=== PATIENT | male | born 1945 | race Caucasian/White ===

== ENCOUNTER 2017-09-03 07:48 | Outpatient (CLI) | payer MEDICARE, OTHER ==
[2017-09-03 08:39] LABS: ALT (SGPT) 30 U/L (8-55); AST (SGOT) 19 U/L (5-34); Albumin 4.4 g/dL (3.4-4.8); Alkaline Phosphatase 84 U/L (40-150); Anion Gap 8 mmol/L (10-20); BUN (Urea Nitrogen) 21 mg/dL (8.4-25.7); Bilirubin, Direct 0.2 mg/dL (0.1-0.3); Bilirubin, Total 0.6 mg/dL (0.2-1.2); Calc. Creatinine Clearance 0 mL/min (70-130); Calcium 9.6 mg/dL (7.8-10.44); Carbon Dioxide 33 mmol/L (23-31); Chloride 103 mmol/L (98-107); Estimated GFR-MDRD 47; Glucose 85 mg/dL (83-110); Potassium 4.2 mmol/L (3.5-5.1); Protein, Total 6.9 g/dL (5.8-8.1); Sodium 140 mmol/L (136-145)
--- NOTE | 2017-09-03 08:47 | RAD ---
2 VIEWS CHEST: Date: 09/03/17 PROVIDED CLINICAL HISTORY: Malignant neoplasm of bladder. FINDINGS: Comparison with 12/18/16. Cardiac and mediastinal silhouette is unchanged in appearance. Calcified granuloma at the right lower lung zone laterally is again noted. No confluent air space disease, pleural fluid, or pneumothorax a pparent. IMPRESSION: No evidence for an acute cardiopulmonary process. POS: [facility]
--- NOTE | 2017-09-03 08:57 | CT ---
CT ABDOMEN AND PELVIS: DATE: 08/14/17. PROVIDED CLINICAL HISTORY: Malignant neoplasm of bladder. FINDINGS: Comparison is made with the study dated 08/28/16. There is stable probable rounded atelectasis/scarri ng at the lateral aspect of the left lung base posteriorly. Visualized lung bases are free of signif icant opacity. There is persistent circumscribed fluid density seen within the right renal pelvis appearing stable w ith respect to the prior examination. This may reflect parapelvic cysts. This is incompletely roselia cterized without IV contrast. The right ureter demonstrates a mildly distended appearance diffusely. There is no evidence for urinary tract calculus. The urinary bladder is suboptimally evaluated but appears grossly normal. The liver, spleen, pancreas, and adrenal glands demonstrate an unremarkable unenhanced CT appearance. The left kidney is surgically absent. There is no bowel dilatation, inflammatory fat stranding, free fluid, or lymph node enlargement appar ent. Vascular calcifications are noted involving the abdominal aorta and its branches. Sigmoid colonic di verticulosis and bilateral fat-containing inguinal hernias are seen. The osseous structures demonstrate no concerning osteoblastic or osteolytic lesions. IMPRESSION: Stable exam. POS: [facility]
[2017-09-03 09:39] LABS: Bilirubin Negative (Negative); Blood, Urine Negative (Negative); Clarity CLEAR (Clear); Glucose, Urine (Dipstick) Negative (Negative); Leukocyte Negative (Negative); Nitrite Negative (Negative); Protein, Urine (Dipstick) Negative (Neg-Trace); Urobilinogen 0.2 mg/dL (0.2-1.0); pH, Urine 6.5 (5.0-9.0)
[2017-09-03 09:43] LABS: Bacteria/HPF None Seen HPF (None Seen); Hyaline Casts/LPF 0-3 HYALINE CAST LPF (0-3 Hyaline); RBC/HPF None Seen HPF (0-3); Squamous Epithelial None Seen HPF (0-3); WBC/HPF 0-3 HPF (0-3)
[2017-09-03 10:48] LABS: Sperm/HPF 1+ HPF (None Seen)
== END 2017-09-03 07:49 | disposition home or self-care (01) ==
LOC: CT 07:48
PROVIDERS: ATTEND Urology
DX: C67.9 Malignant neoplasm of bladder, unspecified (principal); C65.2 Malignant neoplasm of left renal pelvis; N28.1 Cyst of kidney, acquired; N18.9 Chronic kidney disease, unspecified
CPT/HCPCS: 36415; 71046; 74176; 80048; 80076; 81001; 87086

== ENCOUNTER 2017-11-04 11:57 | Outpatient (CLI) | payer MEDICARE, OTHER ==
[2017-11-04 13:57] LABS: Bilirubin Negative (Negative); Blood, Urine Negative (Negative); Clarity CLEAR (Clear); Glucose, Urine (Dipstick) Negative (Negative); Hemoglobin 14.9 g/dL (14.0-18.0); Leukocyte Negative (Negative); Mean Corpuscular HGB CONC 34.2 g/dL (32.0-36.0); Mean Corpuscular Hemoglobin 30.3 pg (27.0-31.0); Mean Corpuscular Volume 88.6 fl (80.0-94.0); Mean Platelet Volume 8.6 fL (7.4-10.4); Nitrite Negative (Negative); Platelet Count 160 thou/uL (130-400); Protein, Urine (Dipstick) Negative (Neg-Trace); RBC Distribution Width 11.5 % (11.5-14.5); Red Blood Cell (RBC) Count 4.91 mill/uL (4.70-6.10); Specific Gravity, Urine 1.015 (1.002-1.036); Urobilinogen 0.2 mg/dL (0.2-1.0); White Blood Cell (WBC) Count 5.3 thou/uL (4.8-10.8); pH, Urine 5.5 (5.0-9.0)
[2017-11-04 14:00] LABS: Bacteria/HPF None Seen HPF (None Seen); Hyaline Casts/LPF 0-3 HYALINE CAST LPF (0-3 Hyaline); RBC/HPF 0-3 HPF (0-3); Squamous Epithelial None Seen HPF (0-3); WBC/HPF None Seen HPF (0-3)
[2017-11-04 14:05] LABS: Prothrombin Time 13.7 SEC (12.0-14.7)
[2017-11-04 14:06] LABS: PTT 31.4 SEC (22.9-36.1)
[2017-11-04 15:05] LABS: Anion Gap 12 mmol/L (10-20); BUN (Urea Nitrogen) 24 mg/dL (8.4-25.7); Calc. Creatinine Clearance 0 mL/min (70-130); Calcium 9.4 mg/dL (7.8-10.44); Carbon Dioxide 25 mmol/L (23-31); Chloride 105 mmol/L (98-107); Estimated GFR-MDRD 45; Glucose 107 mg/dL (83-110); Potassium 4.1 mmol/L (3.5-5.1); Sodium 138 mmol/L (136-145)
--- NOTE | 2017-11-04 16:25 | EKG ---
Test Reason : Blood Pressure : / mmHG Vent. Rate : 056 BPM Atrial Rate : 056 BPM P-R Int : 140 ms QRS Dur : 092 ms QT Int : 406 ms P-R-T Axes : 056 064 074 degrees QTc Int : 391 ms Sinus bradycardia Possible Left atrial enlargement Borderline ECG Confirmed by STONEY SALAZAR ([id number]) on 11/04/2017 4:24:38 PM Referred By: LUPILLO Confirmed By:STONEY SALAZAR
== END 2017-11-04 11:58 | disposition home or self-care (01) ==
LOC: LABBT 11:57
PROVIDERS: ATTEND Urology
DX: Z01.818 Encounter for other preprocedural examination (principal); C67.9 Malignant neoplasm of bladder, unspecified
CPT/HCPCS: 80048; 81001; 85027; 85610; 85730; 87086; 93005; 93010

== ENCOUNTER 2017-11-16 06:58 | Day surgery (SDC) | payer MEDICARE, OTHER ==
[2017-11-04 12:19] VITALS: BMI 28.4
[2017-11-16] MEDS ORDERED: Iothalamate Meglumine 60% 50 ML VIAL FS ONE (07:15)
[2017-11-16] MEDS ORDERED: Levofloxacin 500 mg/D5W 100 ml Premix Bag ONE (07:55)
[2017-11-16] MEDS ORDERED: Fentanyl 100 MCG/2 ML VIAL ONE (09:38)
--- NOTE | 2017-11-16 12:10 | OP ---
DATE OF PROCEDURE: 11/16/2017 PREOPERATIVE DIAGNOSES: 1. 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 2. History of superficial bladder cancer, status post transurethral resection of bladder tumor. 3. Recent cystoscopy negative, staging imaging negative, positive cytology. POSTOPERATIVE DIAGNOSES: 1. 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 2. History of superficial bladder cancer, status post transurethral resection of bladder tumor. 3. Recent cystoscopy negative, staging imaging negative, positive cytology. the same. PROCEDURES PERFORMED: Cystoscopy, trans-urethral sampling of prostatic urethra via resectoscope, fulguration of prostatic urethra, random bladder biopsy x3, fulguration of biopsy site, right retrograde, 6 x 26 double-J ureteral stent, flexible ureteroscopy, balloon dilation of intramural ureter, balloon dilation via ureteroscope of the proximal ureter L3-L4 level. SURGEON: Dr. Morgan. ANESTHESIA: General. COMPLICATIONS: None apparent. DISPOSITION: To recovery room in stable condition. INTRAOPERATIVE FINDINGS: 1. TUR defect consistent with prior sampling, no evidence of bladder neck contracture. 2. No evidence of bladder lesion. 3. Left UO was surgically absent. 4. Right UO with clear efflux of urine. 5. Right retrograde demonstrated no evidence of hydronephrosis or filling defect HISTORY OF PRESENT ILLNESS: Mr. Mendoza is a 72-year-old male with history of high-grade left renal pelvic TCC of the bladder, status post left nephroureterectomy, pathologic T1, N0, history of superficial bladder cancer. He has been monitored with surveillance imaging and cystoscopy, which demonstrated no recent visible recurrence, as he is due for his annual exam under anesthesia with retrograde studies, given recent positive cytology, he presents today for his annual surveillance exam under anesthesia at an earlier interval due to recent positive cytology. The patient has had previous positive cytologies negative, in which multiple biopsies, ureteroscopy, pyeloscopy negative for occult lesion. He presents today for staging exam. Risks and complications and indications reviewed including, but not limited to, bleeding, pain, infection, injury to adjacent organs, urosepsis, stricture formation, ureteral renal bladder injury was reviewed with him in detail and he desired to proceed. DESCRIPTION OF PROCEDURE: After an informed consent is signed, the patient is taken to the operating room, placed in a dorsal lithotomy position with the genital area prepped and draped in the usual surgical sterile fashion. A 21- New Zealander cystoscope was utilized for cystoscopy, which demonstrated normal anterior urethra. The prostatic urethra was entered, which demonstrated prior resection changes with bladder neck open with no gross evidence of bladder neck contracture. A 21-[place] Ze[place]ander scope was able to be passed without difficulty. Upon entering the bladder, there were no suspicious lesions for malignancy. The right UO was mildly patulous with no gross evidence of hematuria, bladder tumor. The left UO was surgically absent. At this time, we passed a 5 [place] Ze[place] open-ended catheter to perform a retrograde pyelogram. The ureters were delicate in size with no gross evidence of hydronephrosis. He does have a large peripelvic cyst, I did not see any mass effect from this on the calyces. There was no evidence of hydronephrosis and prompt excretion of contrast was noted. At this time, a 0.35 sensor wire was placed into the right upper pole without difficulty and using a [employer] 4 cm 12 New Zealander balloon dilator , the intramural ureter was dilated. We subsequently passed a second safety wire, a 0.35 Super Stiff to the level of the right renal pelvis. We attempted to pass a flexible ureteroscope via the wire. He had similar issues in the past in which at the level of L3-L4 ureter, I could not pass the flexible ureteroscope. Upon inspection of this area, there was no evidence of lesion consistent with malignant stricture. On retrograde pyelogram, caliber the ureter is delicate with no obvious discrete areas of stricture or narrowing per se. As I could not pass the flexible ureteroscope for surveillance pyeloscopy, we passed a passport balloon dilator under direct visualization and a balloon dilation of this region was performed. Although after the balloon dilation, the opening was more capacious. I still could not get the flexible ureteroscope passed atraumatically. Therefore, I aborted further ureteroscopy, pyeloscopy. A 6 x 26 double-J ureteral stent was passed without difficulty and all wires were removed and stent left in good position. At this time, we did a random bladder biopsy using endoscopic biopsy forceps in the left lateral wall, posterior right lateral wall. Using [place], we cauterized the bed of the biopsy site with good hemostasis. At this time, I transitioned to a resectoscope 26 New Ze[place]ander with a prostate loop and we took the prostatic urethral sampling of the prostate. Two specimens were obtained. Good hemostasis was noted. There is no significant bleeding noted. I did pass a 20 [place] catheter in and out, which passed without difficulty. As there is good hemostasis, I made the decision not to leave an indwelling Pay[place] catheter. He tolerated the procedure well. He will return to clinic this week to schedule a ureteroscopy, pyeloscopy in which I will leave the indwelling ureteral stent for minimum 1-2 weeks to allow passive dilatation. This similar scenario was present few years ago in which I was able to pass the ureteroscope and subsequent ureteroscopy with ease. There is no gross evidence on today's exam. He will undergo pyeloscopy for complete surveillance of positive cytology at a later date. He is discharged with [place] 5/325, ciprofloxacin for 5 days, Colace p.r.n. MTDD
[2017-11-16] MEDS ORDERED: Glycopyrrolate 0.2 MG/ML 5 ML SYRINGE ONE ×2 (12:22)
[2017-11-16] MEDS ORDERED: PROPOFOL 200 MG/20 ML VIAL ONE (12:22)
[2017-11-16] MEDS ORDERED: Dexamethasone 20 MG/5 ML VIAL ONE (12:22)
[2017-11-16] MEDS ORDERED: Lidocaine 1% PF 5 ML VIAL ONE (12:22)
[2017-11-16] MEDS ORDERED: ePHEDrine/0.9% NaCl/PF SYRINGE 50 mg/10 ml ONE (12:22)
--- NOTE | 2017-11-16 13:02 | RAD ---
RIGHT RETROGRADE UROGRAM: Date: 11-16-17 History: Right renal stone. Comparison: 12-24-16 FINDINGS/IMPRESSION: There are surgical clips within the medial left upper quadrant and left hemipelvis. Degenerative arevalo ge is noted in the spine. No suspicious calcifications are identified. Right retrograde urogram demonstrates no evidence of hydronephrosis. Right renal collecting system, a nd right ureter demonstrate an overall normal appearance. The suggested filling defect within the upp er pole renal randy is less well delineated on this exam and while there is filling defect on this st udy, the filling defect does not definitely persist and may represent a small air bubble. Subsequent imaging shows a guidewire in place with images demonstrating what appears to be a balloon catheter in place. Final image demonstrates a double pigtail right ureteral stent in place, the proximal portion overlying the upper pole right renal collecting system and distal portion overlying the expected loc ation of the urinary bladder. Correlation with intraoperative findings is recommended. POS: [facility]
== END 2017-11-16 12:45 | disposition home or self-care (01) ==
LOC: SDC 06:58
PROVIDERS: ATTEND Urology
PROC: 0TBB8ZX Excision of Bladder, Via Natural or Artificial Opening Endoscopic, Diagnostic (ICD-10-PCS; principal; 2017-11-16)
PROC: 0T768DZ Dilation of Right Ureter with Intraluminal Device, Via Natural or Artificial Opening Endoscopic (ICD-10-PCS; 2017-11-16)
DX: N32.89 Other specified disorders of bladder (principal); N30.90 Cystitis, unspecified without hematuria; N18.9 Chronic kidney disease, unspecified; Z90.6 Acquired absence of other parts of urinary tract; Z85.51 Personal history of malignant neoplasm of bladder; Z85.53 Personal history of malignant neoplasm of renal pelvis
CPT/HCPCS: 52204; 52332; 74420; 88305; C1758; C1769; J1100; J1956; J2001; J2704; J3010; Q9961

== ENCOUNTER 2017-11-18 12:15 | Outpatient (CLI) | payer MEDICARE, OTHER ==
[2017-11-18 13:29] LABS: Hemoglobin 14.3 g/dL (14.0-18.0); Mean Corpuscular Hemoglobin 30.5 pg (27.0-31.0); Mean Corpuscular Volume 89.7 fl (80.0-94.0); Mean Platelet Volume 8.7 fL (7.4-10.4); Platelet Count 151 thou/uL (130-400); RBC Distribution Width 11.6 % (11.5-14.5); Red Blood Cell (RBC) Count 4.67 mill/uL (4.70-6.10); White Blood Cell (WBC) Count 7.8 thou/uL (4.8-10.8)
[2017-11-18 13:39] LABS: PTT 29.8 SEC (22.9-36.1); Prothrombin Time 13.2 SEC (12.0-14.7)
[2017-11-18 13:56] LABS: Anion Gap 11 mmol/L (10-20); BUN (Urea Nitrogen) 28 mg/dL (8.4-25.7); Calc. Creatinine Clearance 0 mL/min (70-130); Calcium 9.1 mg/dL (7.8-10.44); Carbon Dioxide 30 mmol/L (23-31); Chloride 102 mmol/L (98-107); Estimated GFR-MDRD 39; Glucose 117 mg/dL (83-110); Sodium 139 mmol/L (136-145)
[2017-11-18 14:03] LABS: Bilirubin Negative (Negative); Blood, Urine Large (Negative); Clarity CLOUDY (Clear); Glucose, Urine (Dipstick) Negative (Negative); Leukocyte Moderate (Negative); Nitrite Negative (Negative); Protein, Urine (Dipstick) 100 mg/dL (Neg-Trace); Specific Gravity, Urine 1.014 (1.002-1.036); Urobilinogen 0.2 mg/dL (0.2-1.0); pH, Urine 6.5 (5.0-9.0)
[2017-11-18 14:08] LABS: Bacteria/HPF None Seen HPF (None Seen); Hyaline Casts/LPF 0-3 HYALINE CAST LPF (0-3 Hyaline); Pathc Cast-AUWi Flag 0.29 (0-2.49); RBC/HPF GREATER THAN 50-TNTC HPF (0-3); Squamous Epithelial 0-3 HPF (0-3); WBC/HPF 21-50 HPF (0-3)
== END 2017-11-18 12:16 | disposition home or self-care (01) ==
LOC: LABBT 12:15
PROVIDERS: ATTEND Urology
DX: Z01.818 Encounter for other preprocedural examination (principal); C67.9 Malignant neoplasm of bladder, unspecified
CPT/HCPCS: 80048; 81001; 85027; 85610; 85730; 87086; 93005; 93010

== ENCOUNTER 2017-11-30 05:47 | Day surgery (SDC) | payer MEDICARE, OTHER ==
[2017-11-18 12:47] VITALS: BMI 28.1
[2017-11-30] MEDS ORDERED: Levofloxacin 500 mg/D5W 100 ml Premix Bag ONE (06:38)
[2017-11-30] MEDS ORDERED: Midazolam HCl 2 mg/2 ml Vial ONE (06:49)
[2017-11-30] MEDS ORDERED: Fentanyl 100 MCG/2 ML VIAL ONE (06:49)
[2017-11-30 07:04] LABS: Anion Gap 9 mmol/L (10-20); BUN (Urea Nitrogen) 28 mg/dL (8.4-25.7); Calc. Creatinine Clearance 58 mL/min (70-130); Calcium 9.1 mg/dL (7.8-10.44); Carbon Dioxide 26 mmol/L (23-31); Chloride 106 mmol/L (98-107); Estimated GFR-MDRD 49; Glucose 98 mg/dL (83-110); Potassium 4.3 mmol/L (3.5-5.1); Sodium 137 mmol/L (136-145)
[2017-11-30] MEDS ORDERED: Iothalamate Meglumine 60% 50 ML VIAL FS ONE (07:08)
[2017-11-30] MEDS ORDERED: Phenazopyridine HCl 97.5 MG TABLET ONE (08:30)
--- NOTE | 2017-11-30 09:39 | RAD ---
RIGHT RETROGRAM UROGRAM: Date: 11-30-17 Fluoroscopy: 1.1 minute with total dose of 27.29 mGy*cm^2. FINDINGS/IMPRESSION: Initial applied behavior specialist image demonstrates surgical clips overlying the medial aspect left upper quadrant and o verlying the left hemipelvis similar to prior study. Initial image also demonstrates removal of the r ight ureteral stent with guidewire in place within the right renal collecting system as well as opaci fication of the right renal collecting system. No hydronephrosis or hydroureter is present. Subsequen t image demonstrates a catheter in place in addition to the guidewire. Correlation with intraoperativ e findings is recommended. POS: [facility]
[2017-11-30] MEDS ORDERED: PROPOFOL 200 MG/20 ML VIAL ONE (11:18)
[2017-11-30] MEDS ORDERED: Glycopyrrolate 0.2 MG/ML 5 ML SYRINGE ONE (11:18)
[2017-11-30] MEDS ORDERED: Ondansetron HCl/PF 4 MG/2 ML Vial ONE (11:18)
[2017-11-30] MEDS ORDERED: Lidocaine 1% PF 5 ML VIAL ONE (11:18)
--- NOTE | 2017-11-30 11:34 | OP ---
PREOPERATIVE DIAGNOSES: Mr. Mendoza is a 72-year-old male with history of left renal pelvic transitional cell carcinoma, history of bladder cancer, grade II superficial. Recent cytology positive. Previous workup negative. POSTOPERATIVE DIAGNOSES: Mr. Mendoza is a 72-year-old male with history of left renal pelvic transitional cell carcinoma, history of bladder cancer, grade II superficial. Recent cytology positive. Previous workup negative. PROCEDURE: Cystoscopy, right retrograde, 6 x 26 double-J ureteral stent exchange on daner, flexible ureteroscopy, pyeloscopy, retrograde pyelogram. SURGEON: Dr. Morgan. ANESTHESIA: General. COMPLICATIONS: None apparent. DISPOSITION: To the recovery room in stable condition. SPECIMEN: None. INTRAOPERATIVE FINDINGS: 1. No evidence of upper tract lesion of concern. 2. No obvious ureteral stricture. INDICATIONS FOR THE PROCEDURE AND HISTORY: Mr. Mendoza is a 72-year-old male with history of high-grade left TCC of the renal pelvis, status post left nephroureterectomy with bladder cuff, he has a history of bladder cancer with no evidence of visible recurrence. He has intermittent positive cytology, which previous workup for upper tract and random bladder biopsies negative. He recently underwent random bladder biopsy, prostatic urethral sampling, which are all negative. I was unable to access the upper tract. Therefore, stent was left in situ and presents today for diagnostic ureteroscopy, pyeloscopy. Risks and complications of the procedure was reviewed with him in detail including, but not limited to, bleeding, pain, infection, injury to adjacent organs, urosepsis, ureteral renal bladder injury reviewed and he desired to proceed. DESCRIPTION OF THE PROCEDURE: After an informed consent is signed, the patient is taken to the operating room, placed in a dorsal lithotomy position with the genital area prepped and draped in the usual surgical sterile fashion. Broad- spectrum antibiotics, bilateral EZ hose, SCDs were placed. A 21-Georgian cystoscope was passed without difficulty. Prostatic urethra did demonstrate changes consistent with recent prostatic urethral sampling. There is no bladder outlet obstruction or no significant stricture of concern. Bladder was entered, which demonstrated no lesion. The preexisting stent was removed to the level of the meatus and a 0.35 sensor wire was passed without difficulty. I subsequently passed a 10 Georgian dual-lumen access sheath in which was able to be passed without difficulty to the level of the distal ureter. Retrograde pyelogram did not demonstrate any evidence of ureteral narrowing. We were able to pass the 10 Georgian to the level of the proximal ureter just distal to the UPJ with ease. At this time, a 0.38 Super Stiff wire was passed through the dual lumen and the dual lumen was then subsequently removed. The flexible ureteroscope was then advanced over the Super Stiff wire to the level of the renal pelvis. We surveyed the collecting system, each randy was inspected, which demonstrated no evidence of upper tract TCC. The ureter was surveyed. I did have to balloon dilate his ureter in the mid, I did not see any obvious annular narrowing nor ureteral TCC lesion of concern. At this time, a 6 x 26 double-J ureteral stent was passed over the guidewire with ease and this was left on . He will follow up with me next week on Thursday for stent removal on . The patient discharged with ciprofloxacin, [place], and Colace. YING
== END 2017-11-30 09:51 | disposition home or self-care (01) ==
LOC: SDC 05:47
PROVIDERS: ATTEND Urology
PROC: 0T768DZ Dilation of Right Ureter with Intraluminal Device, Via Natural or Artificial Opening Endoscopic (ICD-10-PCS; principal; 2017-11-30)
DX: C65.2 Malignant neoplasm of left renal pelvis (principal); C67.9 Malignant neoplasm of bladder, unspecified; M19.90 Unspecified osteoarthritis, unspecified site; E78.5 Hyperlipidemia, unspecified; N40.1 Benign prostatic hyperplasia with lower urinary tract symptoms; R35.0 Frequency of micturition; Z98.890 Other specified postprocedural states
CPT/HCPCS: 52332; 74420; 80048; C1758; C1769; J1956; J2001; J2250; J2405; J2704; J3010; Q9961

== ENCOUNTER 2018-05-31 07:17 | Outpatient (CLI) | payer MEDICARE, OTHER ==
--- NOTE | 2018-05-31 09:36 | RAD ---
CHEST TWO VIEWS: 05/31/2018 HISTORY: Preoperative patient. COMPARISON: 09/03/2017 FINDINGS: Multiple old left-sided rib fractures are noted, stable. No pneumothorax or pleural fluid. No focal consolidation or alveolar edema. There is widening of the left acromioclavicular joint and truncati on of the distal left clavicle, suggesting prior postoperative and/or degenerative change. IMPRESSION: Chronic findings, as detailed above. No focal consolidation or alveolar edema. POS: [facility]
[2018-05-31 10:52] LABS: #Eosinphils 0.2 thou/uL (0.0-0.7); #Lymphocytes 1.5 thou/uL (1.20-3.40); #Monocytes 0.8 thou/uL (0.11-0.59); #Neutrophils 5.9 thou/uL (1.40-6.50); %Basophils 0.1 % (0.0-1.0); %Eosinophils 2.9 % (0.0-10.0); %Lymphocytes 17.5 % (21.0-51.0); %Monocytes 9.4 % (0.0-10.0); %Neutrophils 70.1 % (42.0-75.0); Hemoglobin 14.7 g/dL (14.0-18.0); Mean Corpuscular HGB CONC 32.7 g/dL (32.0-36.0); Mean Corpuscular Hemoglobin 29.3 pg (27.0-31.0); Mean Corpuscular Volume 89.4 fL (78.0-98.0); Mean Platelet Volume 9.4 fL (7.4-10.4); Platelet Count 158 thou/uL (130-400); Red Blood Cell (RBC) Count 5.04 mill/uL (4.70-6.10); White Blood Cell (WBC) Count 8.4 thou/uL (4.8-10.8)
[2018-05-31 10:56] LABS: PTT 32.6 SEC (22.9-36.1); Prothrombin Time 12.9 SEC (12.0-14.7)
[2018-05-31 11:10] LABS: Anion Gap 12 mmol/L (10-20); BUN (Urea Nitrogen) 28 mg/dL (8.4-25.7); Calc. Creatinine Clearance 0 mL/min (70-130); Calcium 9.7 mg/dL (7.8-10.44); Carbon Dioxide 26 mmol/L (23-31); Chloride 103 mmol/L (98-107); Estimated GFR-MDRD 46; Glucose 97 mg/dL (83-110); Potassium 4.5 mmol/L (3.5-5.1); Sodium 136 mmol/L (136-145)
[2018-05-31 11:53] LABS: Bilirubin Negative (Negative); Blood, Urine Negative (Negative); Clarity CLEAR (Clear); Glucose, Urine (Dipstick) Negative (Negative); Leukocyte Negative (Negative); Nitrite Negative (Negative); Protein, Urine (Dipstick) Negative (Neg-Trace); Specific Gravity, Urine 1.008 (1.002-1.036); Urobilinogen 0.2 mg/dL (0.2-1.0); pH, Urine 6.5 (5.0-9.0)
[2018-05-31 11:57] LABS: Bacteria/HPF None Seen HPF (None Seen); Hyaline Casts/LPF 0-3 HYALINE CAST LPF (0-3 Hyaline); Pathc Cast-AUWi Flag 0.14 (0-2.49); RBC/HPF 0-3 HPF (0-3); Squamous Epithelial None Seen HPF (0-3); WBC/HPF None Seen HPF (0-3)
== END 2018-05-31 07:18 | disposition home or self-care (01) ==
LOC: LABBT 07:17
PROVIDERS: ATTEND Orthopaedic Surgery
DX: Z01.818 Encounter for other preprocedural examination (principal); M17.11 Unilateral primary osteoarthritis, right knee
CPT/HCPCS: 71046; 80048; 81001; 85025; 85610; 85730; 87081; 93005; 93010

== ENCOUNTER 2018-06-08 06:28 | Inpatient (IN) | payer MEDICARE, OTHER ==
[2018-06-08] MEDS ORDERED: Vancomycin HCl 1.5 GM in Sodium Chloride 0.9% 250 ML 300 ML IVPB SCH (07:30)
[2018-06-08] MEDS ORDERED: Tranexamic Acid 1,000 MG/10 ML VIAL ONE (07:49)
[2018-06-08] MEDS ORDERED: CEFAZOLIN 2 GM/50 ML BAG ONE (07:49)
[2018-06-08] MEDS ORDERED: Sodium Chloride 0.9% 100 ML ONE (07:49)
[2018-06-08] MEDS ORDERED: Fentanyl 100 MCG/2 ML VIAL ONE ×3 (07:54→11:18)
[2018-06-08] MEDS ORDERED: Midazolam HCl 2 mg/2 ml Vial ONE (07:54)
[2018-06-08] MEDS ORDERED: Promethazine HCl 25 MG/ML VIAL IM PRN ×3 (08:33→09:21)
[2018-06-08] MEDS ORDERED: diphenhydrAMINE 25 MG CAP PO PRN (08:33)
[2018-06-08] MEDS ORDERED: HYDROcodone/Acetaminophen 10/325 mg Tablet PO PRN ×2 (08:33)
[2018-06-08] MEDS ORDERED: Fentanyl 100 MCG/2 ML VIAL SLOW IVP PRN ×2 (08:33)
[2018-06-08] MEDS ORDERED: Ondansetron PF 4 MG/2 ML Vial IVP PRN ×2 (08:33→08:43)
[2018-06-08] MEDS ORDERED: Zolpidem Tartrate 5 MG TAB PO PRN ×2 (08:33→08:43)
[2018-06-08] MEDS ORDERED: traMADol HCl 50 MG TAB PO PRN ×2 (08:33→08:43)
[2018-06-08] MEDS ORDERED: Ropivacaine HCl/PF 250 ML in Premix Bag 1 BAG NERVE BLCK SCH (08:43)
[2018-06-08] MEDS ORDERED: CEFAZOLIN/Water 2 GM/20 ML SYRINGE SLOW IVP SCH (08:45)
[2018-06-08] MEDS ORDERED: Fentanyl 100 MCG/2 ML VIAL IV PRN (08:47)
[2018-06-08] MEDS ORDERED: Non-Formulary Item 1 EACH (Multivitamin [Multivitamins] 1 TAB) PO SCH (09:00)
[2018-06-08] MEDS ORDERED: Ondansetron HCl/PF 4 MG/2 ML Vial IVP PRN (09:21)
[2018-06-08] MEDS ORDERED: Promethazine HCl 25 MG/ML VIAL SLOW IVP PRN (09:21)
[2018-06-08] MEDS ORDERED: Morphine 10 MG/ML VIAL ONE (09:39)
--- NOTE | 2018-06-08 10:33 | OP ---
DATE OF PROCEDURE: 06/07/2018 PREOPERATIVE DIAGNOSIS: Degenerative joint disease of the right knee. POSTOPERATIVE DIAGNOSIS: Degenerative joint disease of the right knee. PROCEDURE: Right total knee arthroplasty using a Jonathan Triathlon 5 femur, 6 tibia, 9 mm CSX3 polye thylene, A32 patella. SURGEON: Freddy Suarez M.D. SLIDE FASTENERS INSPECTOR: Alex Swartz PA-C. BLOOD LOSS: Minimal. SPECIMEN: None. DRAINS: None. COMPLICATIONS: None. TOURNIQUET TIME: 48 minutes. PROCEDURE IN DETAIL: After informed consent was obtained in the preoperative holding area. The deangelo ent was taken to the operative suite where general anesthesia was induced. Once adequate level of ge neral anesthesia was obtained, the patient was positioned and a well-padded tourniquet was placed george und the right proximal thigh. The right lower extremity was then prepped and draped in the usual deric rile fashion. Prior to exsanguination, a time out was called and all members of the surgical team ag marce upon site, surgeon, and patient. The extremity was then exsanguinated and the tourniquet was ra ised. A midline longitudinal incision was then made directly over the patella extending two fingerbr eadths above the superior pole of the patella and two fingerbreadths inferior to the inferior patella r pole of the patella. Deeper subcutaneous layers were dissected sharply and local bleeding was cont rolled with Bovie electrocautery. A quad tendon longitudinal split was then made sharply and a media n parapatellar arthrotomy was carried out both sharp and with Bovie electrocautery, carried down to o ne fingerbreadth medial to the tibial tubercle. The knee was then placed into flexion and the patell a was everted nicely, and a copious fat pad ectomy was performed allowing for greater exposure of the tibia. The computer-assisted distal femoral fiducial was then placed and pinned firmly, and the dis kristel femoral cutting guide was pinned firmly into place. The oscillating saw was then used to remove the appropriate amount of bone. The 4-in-1 cutting block was then placed on the distal femur and the oscillating saw was used to remove the appropriate amount of bone off of the anterior, posterior, an d chamfer cuts. After completion of bone cuts, the anterior cruciate ligament was resected sharply a nd the posterior cruciate ligament retractor was placed and the tibia was subluxed for better exposur e. Partial meniscectomies were carried out, and the tibial computer-assisted fiducial was pinned, an d the cutting guide was placed. Oscillating saw was then used to remove the bone with Hohmann retrac tors used to take care and protect the collateral ligaments. After the tibial resection was performe d, a laminar balance clerk was placed in between the freshened bone cuts. The knee placed at 90 degrees a nd further bilateral meniscectomies were carried out, and the curved osteotome and curettage was used to remove any excess bone spurs in the posterior compartment. The trial femoral component, tibial b aseplate were placed with the appropriate polyethylene trial insert with an appropriate polyethylene spacer and patellar button. The knee was taken through full range of motion with flexion and extensi on from 0-90 degrees and patellar broach squarely in the trochlea without any squinting or subluxatio n noted. The knee was also stable to varus and valgus stressing at 0, 15, 45, and 90 degrees of flex ion. The drawer was negative. All trial components were then removed and the keel punch was used to provide the appropriate defect in the tibia with a mallet. The freshened bone cuts were copiously ir rigated with pulsatile lavage of about 1-1/2 liters to remove all excess debris. The freshened bone cuts were then dried and with suction and lap sponge. The knee was placed in flexion and retractors were placed to provide access to all bone cuts. Tobramycin impregnated methyl methacrylate cement wa s then placed on the freshened bone cuts and implants which were malleted firmly into place. Curetta ge and [place] elevators were used to remove any excess bone cement. The knee was placed into full ext ension and the patellar button was placed under compression, and the cement was allowed to cure. Onc e completed, the components were again taken through full range of motion and copious irrigation of t he knee was carried out with another liter of normal saline. All components were inspected fully wit h full range of motion and varus and valgus stressing. There was no laxity noted and full extension w as observed clinically. Primary closure was accomplished with #2 interrupted Vicryl stitch of the ar throtomy defect. This was oversewn with a #2 running Quill barbed stitch. The gravitational platele t system was then injected into the arthrotomy prior to closure. The subcutaneous layer was then yfn sed with a running 0 barbed Monocryl stitch and skin closure accomplished with a running subcuticular 3-0 Monocryl barbed Quill stitch and augmented with cement on the skin. Tourniquet was lowered. Go od spontaneous return of distal pulses was noted clinically and a sterile dressing was applied to the incision. The procedure was terminated without any complications. The patient was awakened in the operative suite and the tourniquet was removed, and the patient was taken to the recovery room in sta ble condition.
[2018-06-08] MEDS: Amlodipine 10 MG TAB PO SCH (13:19)
[2018-06-08] MEDS: Sodium Chloride 0.9% 1,000 ML IV SCH ×3 (13:19→23:03)
[2018-06-08] MEDS: Aspirin 81 mg Enteric Coated Tablet PO SCH ×2 (13:20→20:30)
[2018-06-08] MEDS: HYDROcodone/Acetaminophen 10/325 mg Tablet PO PRN ×4 (13:28→23:02)
--- NOTE | 2018-06-08 13:36 | RAD ---
TWO VIEW RIGHT KNEE: Indication: Total knee replacement, post-operative evaluation. FINDINGS: Right knee prosthesis is present without acute hardware complication. Expected post procedural air is seen. IMPRESSION: Right post-operative knee without hardware complication identified. POS: [facility]
[2018-06-08 14:08] VITALS: BMI 28.1
[2018-06-08] MEDS ORDERED: Ropivacaine 0.5% HCl/PF (150 MG/30 ML VIAL) ONE (15:52)
[2018-06-08] MEDS ORDERED: Ropivacaine 0.2% HCl/PF (40 MG/20 ML VIAL) ONE (15:52)
[2018-06-08] MEDS: CEFAZOLIN 2 GM/50 ML-DEXTROSE 2 GM in Premix Bag 1 BAG IVPB SCH ×2 (16:49→23:03)
[2018-06-08] MEDS ORDERED: Ondansetron PF 4 MG/2 ML Vial ONE (17:11)
[2018-06-08] MEDS ORDERED: PROPOFOL 200 MG/20 ML VIAL ONE (17:11)
[2018-06-08] MEDS: Atorvastatin Calcium 40 MG TAB PO SCH (20:30)
[2018-06-08] MEDS: traMADol HCl 50 MG TAB PO PRN (20:31)
[2018-06-09 05:44] LABS: Hemoglobin 12.6 g/dL (14.0-18.0); Mean Corpuscular HGB CONC 33.5 g/dL (32.0-36.0); Mean Corpuscular Hemoglobin 30.1 pg (27.0-31.0); Mean Corpuscular Volume 89.7 fL (78.0-98.0); Mean Platelet Volume 8.6 fL (7.4-10.4); Platelet Count 157 thou/uL (130-400); RBC Distribution Width 11.6 % (11.5-14.5); White Blood Cell (WBC) Count 6.7 thou/uL (4.8-10.8)
[2018-06-09] MEDS: Amlodipine 10 MG TAB PO SCH (08:04)
[2018-06-09] MEDS: Aspirin 81 mg Enteric Coated Tablet PO SCH ×2 (08:06→20:58)
[2018-06-09] MEDS: Senokot S 8.6-50 MG TAB PO SCH ×2 (08:06→20:57)
[2018-06-09] MEDS: Multivitamin W/ Minerals 1 TAB PO SCH (08:06)
[2018-06-09] MEDS: Ferrous Gluconate 324 MG TAB PO SCH ×2 (08:06→20:58)
[2018-06-09] MEDS: HYDROcodone/Acetaminophen 10/325 mg Tablet PO PRN ×2 (08:09→11:23)
--- NOTE | 2018-06-09 12:44 | PDOC.PN ---
- Subjective Encounter Start Date: 06/09/18 Encounter Start Time: 09:30 follow up for HTN, HLD, GERD, CKD, s/p TKA No F/C, no N/V/D/C, no CP or SOB all systems neg x as per HPI - Objective MAR Reviewed: Yes Vital Signs & Weight: Vital Signs (12 hours) Temp Pulse Resp BP BP Pulse Ox 06/09/18 08:04 87 167/70 H 06/09/18 08:00 92 L 06/09/18 07:15 100 F H 87 16 167/70 H 92 L 06/09/18 00:47 99.3 F 59 L 16 160/76 H 92 L Weight Weight 196 lb I&O: 06/08/18 06/09/18 06/10/18 06:59 06:59 06:59 Intake Total 1500 Output Total 650 Balance 850 Result Diagrams: 06/09/18 05:17 Phys Exam - Physical Examination Constitutional: NAD HEENT: PERRLA, moist MMs, sclera anicteric, oral pharynx no lesions Neck: no nodes, no JVD, supple, full ROM Respiratory: no wheezing, no rales, no rhonchi, clear to auscultation bilateral Cardiovascular: RRR, no significant murmur, no rub Gastrointestinal: soft, non-tender, no distention, positive bowel sounds Musculoskeletal: edema present Neurological: non-focal, normal sensation, moves all 4 limbs Lymphatic: no nodes Psychiatric: normal affect, A&O x 3 Skin: no rash, normal turgor, cap refill <2 seconds Dx/Plan (1) HTN (hypertension) Code(s): I10 - ESSENTIAL (PRIMARY) HYPERTENSION Status: Chronic Qualifiers: Hypertension type: essential hypertension Qualified Code(s): I10 - Essential (primary) hypertension (2) HLD (hyperlipidemia) Code(s): E78.5 - HYPERLIPIDEMIA, UNSPECIFIED Status: Chronic Qualifiers: Hyperlipidemia type: unspecified Qualified Code(s): E78.5 - Hyperlipidemia , unspecified (3) GERD (gastroesophageal reflux disease) Code(s): K21.9 - GASTRO-ESOPHAGEAL REFLUX DISEASE WITHOUT ESOPHAGITIS Status: Chronic Qualifiers: Esophagitis presence: without esophagitis Qualified Code(s): K21.9 - Gastro -esophageal reflux disease without esophagitis (4) CKD (chronic kidney disease), stage III Code(s): N18.3 - CHRONIC KIDNEY DISEASE, STAGE 3 (MODERATE) Status: Chronic (5) Status post right knee replacement Code(s): Z96.651 - PRESENCE OF RIGHT ARTIFICIAL KNEE JOINT Status: Acute - Plan cont current plan of care, plan discussed w/ family, PT/OT, out of bed/ambulate * .
--- NOTE | 2018-06-09 13:37 | CON ---
DATE OF CONSULTATION: 06/08/2018 PRIMARY CARE PHYSICIAN: Dr. Ranulfo Cruz. REQUESTING PHYSICIAN: Dr. Freddy Suarez. TIME OF SERVICE: 1400 hours. REASON FOR CONSULTATION: Medical management, status post right TKA. HISTORY OF PRESENT ILLNESS: Mr. Mendoza is a pleasant 73-year-old gentleman with history of degenerative joint disease; bladder cancer, status post nephrectomy resulting chronic kidney disease; hypertension; hyperlipidemia; asymptomatic bradycardia; and GERD, who is postop day zero from right TKA. There were no known intraoperative complications. The patient denies any fevers, chills, nausea, vomiting, diarrhea, or constipation. Pain is under good control. PAST MEDICAL HISTORY: 1. Hypertension. 2. Hyperlipidemia. 3. Asymptomatic bradycardia. 4. GERD. 5. One remaining kidney. 6. Seasonal allergies. 7. Osteoarthritis. 8. History of bladder cancer, status post nephrectomy. PAST SURGICAL HISTORY: Reviewed. Please see the preop list. HOME MEDICATIONS: 1. Amlodipine 5 mg p.o. daily. 2. Lipitor 40 mg p.o. every evening. 3. Glucosamine/chondroitin every morning. 4. Claritin 5 mg p.o. p.r.n. 5. Multivitamin daily. ALLERGIES: NKDA. FAMILY HISTORY: Significant for hypertension, coronary artery disease, diabetes, and cancers. SOCIAL HISTORY: Significant for tobacco, but quit some 40 years ago. Negative for alcohol, tobacco, or drugs now. The patient is and monogamous. His accompanies him. REVIEW OF SYSTEMS: All systems reviewed and negative except as stated in the HPI. PHYSICAL EXAMINATION: GENERAL/VITAL SIGNS: The patient is afebrile. He has normal vital signs. Please see the flow sheet. The patient is awake, he is alert, he is oriented x3, well-developed, well-nourished, elderly white male, appears age appropriate. He is in no acute distress. HEENT: Normocephalic and atraumatic. Pupils are equal, round, reactive to light bilaterally. Mucous membranes are moist. No visible lesion or thrush. NECK: Supple. There is no lymphadenopathy, JVD, or thyromegaly. Normal carotid upstroke. I do not appreciate any bruits. LUNGS: Clear. No wheezes, no rales, and no rhonchi. No prolonged expiratory phase. He has good air movement with symmetric chest excursion. CARDIOVASCULAR: Normal S1 and S2. No S3 or S4. There is a faint 2/6 systolic ejection murmur in the right upper sternal border. It does not radiate anywhere. ABDOMEN: Soft, nontender, and nondistended. No mass or hepatosplenomegaly. EXTREMITIES: No cyanosis, no clubbing, and no edema. SKIN: Warm, moist and well perfused. MUSCULOSKELETAL: Normal to inspection with the exception of the right knee, which is currently in a postop dressing and that was not removed. NEUROLOGIC: Cranial nerves II through XII are grossly intact. No focal neurologic deficits. 5/5 strength in all 4 extremities. Normal speech pattern. LABORATORY DATA: Preop labs showed a sodium of 136, potassium 4.5, chloride 103, bicarb 26, BUN 20, creatinine 1.50, which is actually better than his baseline. Glucose is 92 and calcium is 9.7. CBC showed a white count of 8.4, hemoglobin of 14.7, hematocrit of 45.1, and platelet count of 158,000. INR is 1.0 and urinalysis was clear. IMPRESSION/PLAN: 1. Hypertension. 2. Hyperlipidemia. 3. Asymptomatic bradycardia. 4. Gastroesophageal reflux disease. 5. History of bladder cancer. 6. Chronic kidney disease, stage 3. 7. Osteoarthritis, status post right total knee arthroplasty. Continue home medications. Watch his vital signs. Routine postop care per Orthopedics. Thank you very much for this consult. We will follow along with you. Job ID: [id number]
[2018-06-09] MEDS: Sodium Chloride 0.9% 1,000 ML IV SCH ×2 (14:54→23:53)
[2018-06-09] MEDS: Atorvastatin Calcium 40 MG TAB PO SCH (20:58)
[2018-06-09] MEDS: Acetaminophen 325 MG TAB PO PRN (23:54)
[2018-06-10 05:45] LABS: Hemoglobin 11.9 g/dL (14.0-18.0); Mean Corpuscular HGB CONC 34.3 g/dL (32.0-36.0); Mean Corpuscular Hemoglobin 30.6 pg (27.0-31.0); Mean Corpuscular Volume 89.1 fL (78.0-98.0); Platelet Count 147 thou/uL (130-400); RBC Distribution Width 11.5 % (11.5-14.5); Red Blood Cell (RBC) Count 3.88 mill/uL (4.70-6.10); White Blood Cell (WBC) Count 7.7 thou/uL (4.8-10.8)
[2018-06-10] MEDS ORDERED: Lidocaine 1% (PF) 30 ML VIAL ONE (07:18)
[2018-06-10] MEDS: Aspirin 81 mg Enteric Coated Tablet PO SCH (08:33)
[2018-06-10] MEDS: Amlodipine 10 MG TAB PO SCH (08:33)
[2018-06-10] MEDS: Ferrous Gluconate 324 MG TAB PO SCH (08:34)
[2018-06-10] MEDS: Multivitamin W/ Minerals 1 TAB PO SCH (08:34)
[2018-06-10] MEDS: Senokot S 8.6-50 MG TAB PO SCH (08:34)
--- NOTE | 2018-06-10 09:07 | PDOC.PN ---
- Subjective Encounter Start Date: 06/10/18 Encounter Start Time: 08:00 follow up for HTN, DM2, s/p TKA discharging today, slgiht temp overnight no n/V/d/C, no chills, no cough. All systems reviewed and neg x as above - Objective MAR Reviewed: Yes Vital Signs & Weight: Vital Signs (12 hours) Temp Pulse Resp BP BP BP Pulse Ox 06/10/18 08:33 69 163/64 H 06/10/18 07:28 92 L 06/10/18 07:25 98.9 F 69 16 163/64 H 92 L 06/10/18 04:16 99.8 F H 74 18 142/62 H 94 L 06/10/18 00:09 100.7 F H 74 18 154/68 H 94 L Weight Admit Weight 196 lb Weight 196 lb I&O: 06/09/18 06/10/18 06/11/18 06:59 06:59 06:59 Intake Total 1500 1300 Output Total 650 Balance 850 1300 Result Diagrams: 06/10/18 04:39 Phys Exam - Physical Examination Constitutional: NAD HEENT: PERRLA, moist MMs, sclera anicteric, oral pharynx no lesions Neck: no nodes, no JVD, supple, full ROM Respiratory: no wheezing, no rales, no rhonchi, clear to auscultation bilateral Cardiovascular: RRR, no significant murmur, no rub Gastrointestinal: soft, non-tender, no distention, positive bowel sounds Musculoskeletal: no edema Neurological: non-focal, normal sensation, moves all 4 limbs Lymphatic: no nodes Psychiatric: normal affect, A&O x 3 Skin: no rash, normal turgor, cap refill <2 seconds Dx/Plan (1) HTN (hypertension) Code(s): I10 - ESSENTIAL (PRIMARY) HYPERTENSION Status: Chronic Qualifiers: Hypertension type: essential hypertension Qualified Code(s): I10 - Essential (primary) hypertension (2) HLD (hyperlipidemia) Code(s): E78.5 - HYPERLIPIDEMIA, UNSPECIFIED Status: Chronic Qualifiers: Hyperlipidemia type: unspecified Qualified Code(s): E78.5 - Hyperlipidemia , unspecified (3) GERD (gastroesophageal reflux disease) Code(s): K21.9 - GASTRO-ESOPHAGEAL REFLUX DISEASE WITHOUT ESOPHAGITIS Status: Chronic Qualifiers: Esophagitis presence: without esophagitis Qualified Code(s): K21.9 - Gastro -esophageal reflux disease without esophagitis (4) CKD (chronic kidney disease), stage III Code(s): N18.3 - CHRONIC KIDNEY DISEASE, STAGE 3 (MODERATE) Status: Chronic (5) Status post right knee replacement Code(s): Z96.651 - PRESENCE OF RIGHT ARTIFICIAL KNEE JOINT Status: Acute - Plan * .
[2018-06-10] MEDS: Sodium Chloride 0.9% 1,000 ML IV SCH (11:07)
[2018-06-10 11:08] VITALS: BP 155/57; TEMP 99.4
[2018-06-10] MEDS: traMADol HCl 50 MG TAB PO PRN (12:47)
[2018-06-10] MEDS: Acetaminophen 325 MG TAB PO PRN (12:48)
--- NOTE | 2018-06-11 14:11 | DIS ---
DATE OF ADMISSION: 06/08/2018 DATE OF DISCHARGE: 06/10/2018 PREOPERATIVE DIAGNOSES: Right knee osteoarthritis/degenerative joint disease. POSTOPERATIVE DIAGNOSES: Right knee osteoarthritis/degenerative joint disease. PROCEDURE PERFORMED: The patient underwent a right total knee replacement. HOSPITAL COURSE: Hospital stay was unremarkable. He was admitted to [facility], where he worked with staff, physical therapy, occupational therapy, and progressed quite well. By postoperative day #2, he was ready to discharge home. DISCHARGE CONDITION: Good/stable. DISPOSITION: Home with family. FOLLOWUP: Would in 2 to 4 weeks or sooner if there are problems or any concerns. DISCHARGE MEDICATIONS: Given with the usage instructions. Job ID: [id number]
== END 2018-06-10 13:38 | disposition home or self-care (01) | DRG 470 ==
LOC: SDC 06:28 → SURG B 12:00
PROVIDERS: ADMIT Orthopaedic Surgery; ATTEND Orthopaedic Surgery
PROC: 0SRC0J9 Replacement of Right Knee Joint with Synthetic Substitute, Cemented, Open Approach (ICD-10-PCS; principal; 2018-06-08)
DX: M17.11 Unilateral primary osteoarthritis, right knee (principal); E78.5 Hyperlipidemia, unspecified; K21.9 Gastro-esophageal reflux disease without esophagitis; R00.1 Bradycardia, unspecified; Z85.51 Personal history of malignant neoplasm of bladder; I12.9 Hypertensive chronic kidney disease with stage 1 through stage 4 chronic kidney disease, or unspecified chronic kidney disease; N18.3 Chronic kidney disease, stage 3 (moderate)
CPT/HCPCS: 36415; 85027; 86850; 86900; 86901; 96374; C1713; C1776; G8978-GP-CK; G8979-GP-CI; J2001; J2250; J2270; J2405; J2704; J2795; J3010; J3370; J7050

== ENCOUNTER 2018-09-27 16:21 | Outpatient (CLI) | payer MEDICARE, OTHER ==
--- NOTE | 2018-09-27 20:30 | MRI ---
MRI LUMBAR SPINE WITHOUT CONTRAST: Indication: Left leg numbness for one year with history of renal cell ===== cancer in the past. Comparison: Prior CT of the abdomen and pelvis, 09-03-17. FINDINGS: There are five lumbar type vertebrae demonstrated. There are Schmorl's nodes involving the superior a spect of L4 and the inferior aspect of L2 which is similar appearing. The conus is seen to terminate at approximately L1. Slight prominence of the right renal pelvis is stable to the comparison CT. L5-S1: There is a broad based bulge with facet hypertrophy inducing mild central canal narrowing as w ell as moderate bilateral lateral recess narrowing with encroachment on the traversing S1 nerve roots bilaterally. This has potential for impingement of the traversing S1 nerve root, particularly on the right. Broad based bulge and facet hypertrophy induces mild bilateral neural foraminal narrowing. L4-5: There is a broad based bulge with facet hypertrophy inducing moderate right and mild left neura l foraminal narrowing. There is mild central canal narrowing at this level. L3-4: There is a broad based disc bulge with facet hypertrophy inducting mild bilateral neural forami nal narrowing. L2-3: There is a broad based disc bulge and facet hypertrophy inducing mild neural foraminal encroach ment. L1-2: There is mild broad based bulge without appreciable central canal or neural foraminal narrowing . T12-L1: No appreciable central canal or neural foraminal narrowing. IMPRESSION: 1. Broad based disc bulge with facet hypertrophy induces moderate lateral recess narrowing bilaterall y within the subarticular lateral recess with potential for impingement of the traversing S1 nerve ro ots, right greater than left. 2. Mild bilateral neural foraminal narrow at L5-S1. 3. Moderate right and mild left neural foraminal narrowing at L4-5. 4. Mild bilateral neural foraminal narrowing at L3-4. POS: [facility]
== END 2018-09-27 16:22 | disposition home or self-care (01) ==
LOC: MRI 16:21
PROVIDERS: ATTEND Orthopaedic Surgery
DX: M51.16 Intervertebral disc disorders with radiculopathy, lumbar region (principal); M48.061 Spinal stenosis, lumbar region without neurogenic claudication; M48.07 Spinal stenosis, lumbosacral region; M51.9 Unspecified thoracic, thoracolumbar and lumbosacral intervertebral disc disorder
CPT/HCPCS: 72148

== ENCOUNTER 2018-10-25 09:10 | Outpatient (CLI) | payer MEDICARE, OTHER ==
--- NOTE | 2018-10-25 09:27 | RAD ---
XR Chest Pa Lat STANDARD History:Malignant neoplasm of the left kidney Comparison: 05/31/2018 study. Findings: Heart size and mediastinum are within normal limits. The lungs are clear of any infiltrativ e process. There are old left rib fractures present. No pulmonary nodules are identified. Impression: No active intrathoracic disease. Stable chest.
--- NOTE | 2018-10-25 10:41 | CT ---
CT ABDOMEN AND PELVIS WITHOUT CONTRAST: HISTORY: The patient has a history of kidney and bladder cancer. Left nephrectomy. Tumors removed from the b ladder. COMPARISON: 09/03/2017 FINDINGS: ABDOMEN: The lung bases show some linear parenchymal change, which shows foci of nodularity associat ed with it and a small pleural-based area of nodularity along the left hemidiaphragm. All these arevalo ges are stable. The liver, spleen, pancreas, and gallbladder regions appear unremarkable. The right and left adrenal glands are normal in appearance. The left kidney has been removed. Cysti c appearing areas within the right renal pelvis appear stable and may be related to parapelvic cysts, difficult to characterize on this noncontrast study. The right ureter does not appear significantly dilated. There is no significant periaortic or mesenteric lymphadenopathy. PELVIS: Sigmoid diverticulosis is noted. I do not appreciate any definite bladder mass. No signifi cant pelvic lymphadenopathy. There appear to be bilateral hydroceles incidentally noted. IMPRESSION: 1. Left nephrectomy. 2. Persistent prominence to the right renal pelvis region, which could be related to a parapelvic cy st in this area. No dilatation of the right ureter. No renal calculus. 3. Sigmoid diverticulosis. 4. Overall, stable examination. POS: [facility]
== END 2018-10-25 09:11 | disposition home or self-care (01) ==
LOC: BICCT 09:10
PROVIDERS: ATTEND Urology
DX: C65.2 Malignant neoplasm of left renal pelvis (principal); C67.9 Malignant neoplasm of bladder, unspecified; N28.1 Cyst of kidney, acquired; R35.0 Frequency of micturition; N18.9 Chronic kidney disease, unspecified; Z90.5 Acquired absence of kidney; K57.30 Diverticulosis of large intestine without perforation or abscess without bleeding
CPT/HCPCS: 36415; 71046; 74176; 80053; 81001; 87086; 88121

== ENCOUNTER 2018-11-02 09:58 | Outpatient (CLI) | payer MEDICARE, OTHER ==
[2018-11-02 11:17] LABS: Hemoglobin 14.3 g/dL (14.0-18.0); Mean Corpuscular HGB CONC 33.2 g/dL (32.0-36.0); Mean Corpuscular Hemoglobin 29.4 pg (27.0-31.0); Mean Corpuscular Volume 88.7 fL (78.0-98.0); Mean Platelet Volume 8.8 fL (7.4-10.4); Platelet Count 156 thou/uL (130-400); RBC Distribution Width 11.9 % (11.5-14.5); Red Blood Cell (RBC) Count 4.85 mill/uL (4.70-6.10); White Blood Cell (WBC) Count 5.3 thou/uL (4.8-10.8)
[2018-11-02 11:22] LABS: PTT 30.3 SEC (22.9-36.1); Prothrombin Time 13.2 SEC (12.0-14.7)
[2018-11-02 11:43] LABS: Anion Gap 12 mmol/L (10-20); BUN (Urea Nitrogen) 24 mg/dL (8.4-25.7); Calc. Creatinine Clearance 0 mL/min (70-130); Calcium 9.6 mg/dL (7.8-10.44); Carbon Dioxide 29 mmol/L (23-31); Chloride 103 mmol/L (98-107); Estimated GFR-MDRD 49; Glucose 88 mg/dL (83-110); Potassium 4.4 mmol/L (3.5-5.1); Sodium 140 mmol/L (136-145)
[2018-11-02 11:56] LABS: Bacteria/HPF None Seen HPF (None Seen); Hyaline Casts/LPF 0-3 HYALINE CAST LPF (0-3 Hyaline); RBC/HPF 0-3 HPF (0-3); Squamous Epithelial None Seen HPF (0-3); WBC/HPF None Seen HPF (0-3)
[2018-11-02 16:12] LABS: Bilirubin Negative (Negative); Blood, Urine Negative (Negative); Clarity CLEAR (Clear); Glucose, Urine (Dipstick) Negative (Negative); Leukocyte Negative (Negative); Nitrite Negative (Negative); Protein, Urine (Dipstick) Negative (Neg-Trace); Specific Gravity, Urine 1.007 (1.002-1.036); Urobilinogen 0.2 mg/dL (0.2-1.0)
--- NOTE | 2018-11-02 23:20 | EKG ---
Test Reason : Blood Pressure : / mmHG Vent. Rate : 045 BPM Atrial Rate : 045 BPM P-R Int : 146 ms QRS Dur : 090 ms QT Int : 444 ms P-R-T Axes : 041 066 063 degrees QTc Int : 384 ms Marked sinus bradycardia Abnormal ECG When compared with ECG of 31-MAY-2018 09:06, No significant change was found Confirmed by ISMA WALSH ([id number]) on 11/02/2018 11:20:22 PM Referred By: LUPILLO Confirmed By:ISMA WALSH
== END 2018-11-02 09:59 | disposition home or self-care (01) ==
LOC: LABBT 09:58
PROVIDERS: ATTEND Urology
DX: Z01.818 Encounter for other preprocedural examination (principal); N32.0 Bladder-neck obstruction; Z85.51 Personal history of malignant neoplasm of bladder
CPT/HCPCS: 80048; 81015; 85027; 85610; 85730; 87086; 93005; 93010

== ENCOUNTER 2018-11-09 13:08 | Outpatient (CLI) | payer MEDICARE, OTHER | END 2018-11-09 13:09 | disposition home or self-care (01) | LOC: LABBT 13:08 | PROVIDERS: ATTEND Urology | DX: Z01.812 Encounter for preprocedural laboratory examination (principal); N32.0 Bladder-neck obstruction; Z85.51 Personal history of malignant neoplasm of bladder | CPT/HCPCS: 86850; 86900; 86901 ==

== ENCOUNTER 2018-11-10 05:48 | Day surgery (SDC) | payer MEDICARE, OTHER ==
[2018-11-02 10:59] VITALS: BMI 27.5
[2018-11-10] MEDS ORDERED: Levofloxacin 500 mg/D5W 100 ml Premix Bag ONE (06:39)
[2018-11-10] MEDS ORDERED: Fentanyl 100 MCG/2 ML VIAL ONE (06:52)
[2018-11-10] MEDS ORDERED: Iothalamate Meglumine 60% 50 ML VIAL FS ONE (07:48)
--- NOTE | 2018-11-10 08:13 | RAD ---
Exam: Retrograde pyelogram: HISTORY: Bladder cancer, carcinoma ureter COMPARISON: 11/30/2017 FINDINGS: Contrast is injected in the right ureter without evidence for obstruction or overt calculus or mass. IMPRESSION: Unremarkable limited retrograde pyelogram on the right.
[2018-11-10] MEDS ORDERED: Phenazopyridine HCl 97.5 MG TABLET ONE ×2 (08:28)
--- NOTE | 2018-11-10 09:13 | OP ---
DATE OF PROCEDURE: 11/10/2018 PREOPERATIVE DIAGNOSES: 1. A 73-year-old male with history of transitional cell carcinoma of the bladder. 2. History of left renal pelvic transitional cell carcinoma, status post nephroureterectomy. POSTOPERATIVE DIAGNOSES: 1. A 73-year-old male with history of transitional cell carcinoma of the bladder. 2. History of left renal pelvic transitional cell carcinoma, status post nephroureterectomy. PROCEDURES PERFORMED: Cystoscopy, dilation of bladder neck contracture, and right retrograde pyelogram. ANESTHESIA: LMA. COMPLICATIONS: None apparent. DISPOSITION: To recovery room in stable condition. SPECIMEN: None. INTRAOPERATIVE FINDINGS: 1. Mild bladder neck contracture, passively dilated with a 22-Mauritian scope, caliber approximately 20-Mauritian. 2. Bladder is grossly unremarkable. 3. Right ureteral orifice with clear efflux of urine. 4. Right retrograde pyelogram demonstrating no evidence of hydronephrosis, filling defect or functional obstruction. INDICATIONS FOR PROCEDURE AND HISTORY: Mr. Mendoza is a 73-year-old male with history of high-grade left renal pelvic TCC status post left nephroureterectomy, history of TCC of the bladder, grade 2, superficial. The patient presents today for his annual exam under anesthesia and retrograde pyelogram studies. His cytology has been obtained preprocedure and negative. Renal function stable with creatinine of 1.4, negative urine culture, presents today for exam under anesthesia. DESCRIPTION OF PROCEDURE: After an informed consent was signed, the patient was taken to the operating room and placed in the dorsal lithotomy position with the genital area prepped and draped in the usual surgical sterile fashion. Bilateral EZ hose, SCDs and broad-spectrum antibiotics were provided. A 21-Mauritian cystoscope was passed. There was no evidence of obvious obstructing urethral stricture. The prostate demonstrated TUR changes. The bladder neck is mildly deviated anteriorly. There was mild bladder neck contracture not warranting DVIU or TUR of bladder neck contracture. I was able to negotiate the 21-Mauritian cystoscope with mild resistance, however, passed without significant issues. I was able to pass to and fro from the bladder neck with a 21 without significant issue passively dilating the bladder neck. At this time, the bladder was entered, which demonstrated no evidence of bladder tumor, lesions, stones, or trabeculation. The left UO was surgically absent. Cystoscopy was performed with the 30-degree and 70-degree lens, which demonstrated no evidence of lesion of concern. The right UO was identified and mildly patulous. A 5-Mauritian open-ended catheter was utilized for retrograde pyelogram. 1:1 diluted contrast was utilized. This demonstrated no evidence of filling defects, no hydronephrosis, no delay in excretion. He does have a known history of parapelvic cyst. There was complete evacuation of contrast with prompt excretion. He tolerated the procedure well. After the procedure, I was able to pass a 16-Mauritian [place] tip in and out without significant issues. Bladder completely emptied and Payton removed. He tolerated the procedure well and transported to the recovery room in stable condition. He is to resume his home medications. No postoperative medications were provided as he was provided prophylactic antibiotics. He will follow up with me on January 07 at 8:15 a.m. to schedule his elective office cystoscopy surveillance. Job ID: [id number] MTDD
[2018-11-10] MEDS ORDERED: Lidocaine 1% PF 5 ML VIAL ONE (13:38)
[2018-11-10] MEDS ORDERED: Ondansetron PF 4 MG/2 ML Vial ONE (13:38)
[2018-11-10] MEDS ORDERED: PROPOFOL 200 MG/20 ML VIAL ONE (13:38)
== END 2018-11-10 09:10 | disposition home or self-care (01) ==
LOC: SDC 05:48
PROVIDERS: ATTEND Urology
PROC: BT1D1ZZ Fluoroscopy of Right Kidney, Ureter and Bladder using Low Osmolar Contrast (ICD-10-PCS; principal; 2018-11-10)
DX: N32.0 Bladder-neck obstruction (principal); M19.90 Unspecified osteoarthritis, unspecified site; E78.5 Hyperlipidemia, unspecified; I12.9 Hypertensive chronic kidney disease with stage 1 through stage 4 chronic kidney disease, or unspecified chronic kidney disease; N18.9 Chronic kidney disease, unspecified; K21.9 Gastro-esophageal reflux disease without esophagitis; Z87.891 Personal history of nicotine dependence; Z85.528 Personal history of other malignant neoplasm of kidney; Z85.51 Personal history of malignant neoplasm of bladder; Z79.82 Long term (current) use of aspirin; Z79.899 Other long term (current) drug therapy; Z90.5 Acquired absence of kidney
CPT/HCPCS: 52005; 74420; C1758; C1769; J1956; J3010; Q9961

== ENCOUNTER 2019-07-14 10:29 | Outpatient (CLI) | payer MEDICARE, OTHER ==
--- NOTE | 2019-07-14 10:42 | RAD ---
XR Chest Pa Lat STANDARD HISTORY: Malignant neoplasm of bladder, left renal pelvis COMPARISON: 10/25/2018 FINDINGS: The heart size is normal. The lungs are well expanded without focal areas of consolidation, pneumothorax or pleural effusions. Old left-sided rib fractures again seen. Tiny calcified granuloma in the right lower lung is again se en. IMPRESSION: Stable exam. No radiographic evidence of acute cardiopulmonary process.
--- NOTE | 2019-07-14 11:24 | CT ---
CT Stone Protocol HISTORY: History of kidney and bladder cancer with left nephrectomy. COMPARISON: 10/25/2018 study. FINDINGS: Linear scarring is again seen within the left base. The liver, spleen, pancreas and gallbladder regions appear unremarkable. Right and left adrenal glands are normal. The right kidney is normal in size. Persistent prominence t o the right renal pelvis is probably related to parapelvic cyst formation no dilatation of the right ureter. No significant periaortic or mesenteric adenopathy. The left kidney has been removed. CT of pelvis performed without contrast enhancement sigmoid diverticulosis is noted. A fat-containing left inguinal hernia is seen. The appendix is normal. IMPRESSION: Stable overall exam. Post left nephrectomy change. Prominence to the right renal pelvis i s felt to be related to parapelvic cysts.
== END 2019-07-14 10:30 | disposition home or self-care (01) ==
LOC: BICCT 10:29
PROVIDERS: ATTEND Urology
DX: C67.9 Malignant neoplasm of bladder, unspecified (principal); C65.2 Malignant neoplasm of left renal pelvis; N18.9 Chronic kidney disease, unspecified; N28.1 Cyst of kidney, acquired
CPT/HCPCS: 36415; 71046; 74176; 80053; 81001; 87086; 88121

== ENCOUNTER 2019-09-14 07:41 | Outpatient (CLI) | payer MEDICARE, OTHER ==
[2019-09-14 12:29] LABS: Bacteria/HPF None Seen HPF (None Seen); Bilirubin Negative (Negative); Blood, Urine Negative (Negative); Clarity Clear (Clear); Glucose, Urine (Dipstick) Normal (Negative); Leukocyte Negative Leu/uL (Negative); Nitrite Negative (Negative); Protein, Urine (Dipstick) 10 mg/dL (Neg-Trace); RBC/HPF 0-3 HPF (0-3); Squamous Epithelial 0-3 HPF (0-3); Urobilinogen Normal mg/dL (Less than 2); WBC/HPF 0-3 HPF (0-3)
[2019-09-14 12:36] LABS: PTT 31.5 SEC (22.9-36.1)
[2019-09-14 12:44] LABS: Hemoglobin 14.2 g/dL (14.0-18.0); Mean Corpuscular HGB CONC 33.1 g/dL (32.0-36.0); Mean Corpuscular Hemoglobin 29.9 pg (27.0-31.0); Mean Corpuscular Volume 90.2 fL (78.0-98.0); Mean Platelet Volume 9.8 fL (7.4-10.4); Platelet Count 152 thou/uL (130-400); RBC Distribution Width 11.8 % (11.5-14.5); Red Blood Cell (RBC) Count 4.75 mill/uL (4.70-6.10)
[2019-09-14 12:53] LABS: Anion Gap 13 mmol/L (10-20); BUN (Urea Nitrogen) 23 mg/dL (8.4-25.7); Calc. Creatinine Clearance 0 mL/min (70-130); Calcium 9.4 mg/dL (7.8-10.44); Carbon Dioxide 27 mmol/L (23-31); Chloride 106 mmol/L (98-107); Estimated GFR-MDRD 45; Glucose 104 mg/dL (83-110); Potassium 3.9 mmol/L (3.5-5.1); Sodium 142 mmol/L (136-145)
--- NOTE | 2019-09-15 08:31 | EKG ---
Test Reason : Blood Pressure : / mmHG Vent. Rate : 054 BPM Atrial Rate : 054 BPM P-R Int : 130 ms QRS Dur : 088 ms QT Int : 412 ms P-R-T Axes : 047 048 052 degrees QTc Int : 390 ms Sinus bradycardia Cannot rule out Inferior infarct , age undetermined Abnormal ECG When compared with ECG of 02-NOV-2018 10:44, No significant change was found Confirmed by DR. Troy SALGADO ([id number]) on 09/15/2019 8:31:31 AM Referred By: ABDIRIZAK Confirmed By:DR. Troy SALGADO
== END 2019-09-14 07:42 | disposition home or self-care (01) ==
LOC: LABBT 07:41
PROVIDERS: ATTEND Urology
DX: Z01.818 Encounter for other preprocedural examination (principal); Z12.5 Encounter for screening for malignant neoplasm of prostate; C67.9 Malignant neoplasm of bladder, unspecified; C65.2 Malignant neoplasm of left renal pelvis; N18.9 Chronic kidney disease, unspecified; N28.1 Cyst of kidney, acquired; N43.3 Hydrocele, unspecified
CPT/HCPCS: 80048; 81001; 85027; 85610; 85730; 87086; 88112; 93005; 93010

== ENCOUNTER 2019-09-28 05:55 | Day surgery (SDC) | payer MEDICARE, OTHER ==
[2019-09-14 09:35] VITALS: BMI 28.5
[2019-09-28] MEDS ORDERED: Levofloxacin 500 mg/D5W 100 ml Premix Bag ONE (06:18)
[2019-09-28] MEDS ORDERED: Iothalamate Meglumine 60% 50 ML VIAL FS ONE (06:57)
[2019-09-28] MEDS ORDERED: Fentanyl 100 MCG/2 ML VIAL ONE (07:18)
[2019-09-28] MEDS ORDERED: Phenazopyridine HCl 97.5 MG TABLET ONE (08:15)
--- NOTE | 2019-09-28 08:22 | RAD ---
EXAM: Retrograde IVP HISTORY: Right ureteral stent. History of left nephrectomy. COMPARISON: CT abdomen/pelvis 07/14/2019 FINDINGS/IMPRESSION: Limited intraoperative fluoroscopic views of the retrograde IVP were submitted f or interpretation. There is no evidence of right-sided hydronephrosis. No obvious filling defects are seen.
[2019-09-28] MEDS ORDERED: Glycopyrrolate 0.2 MG/ML 5 ML SYRINGE ONE (10:52)
[2019-09-28] MEDS ORDERED: PROPOFOL 200 MG/20 ML VIAL ONE (10:52)
[2019-09-28] MEDS ORDERED: Lidocaine 1% PF 5 ML VIAL ONE (10:52)
--- NOTE | 2019-09-28 11:04 | OP ---
DATE OF PROCEDURE: 09/28/2019 PREOPERATIVE DIAGNOSES: 1. Mr. Mendoza is a 74-year-old male with history of high-grade left renal pelvic transitional cell, status post left nephroureterectomy. 2. History of grade 2 superficial bladder cancer, status post transurethral resection of bladder tumour. 3. History of positive cytology. 4. History of bladder neck contracture. POSTOPERATIVE DIAGNOSES: 1. Mr. Mendoza is a 74-year-old male with history of high-grade left renal pelvic transitional cell, status post left nephroureterectomy. 2. History of grade 2 superficial bladder cancer, status post transurethral resection of bladder tumour. 3. History of positive cytology. 4. History of bladder neck contracture. PROCEDURES PERFORMED: Dilation of bladder neck contracture, cystoscopy, right retrograde pyelogram. ANESTHESIA: TIVA. COMPLICATIONS: None apparent. DISPOSITION: To recovery room in stable condition. SPECIMEN: None. INDICATIONS FOR PROCEDURE AND HISTORY: Mr. 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 He previously has undergone extensive workup with random bladder biopsies, prostatic urethral sampling, retrograde, right ureteroscopy. There was no evidence of bladder, ureteral, or renal pelvic tumor recurrence. He has had multiple imaging staging demonstrating no abnormality of concern. His local cystoscopy remains negative for lesion, has had positive cytology FISH recently. Recheck cytology is negative. He presents today for his annual cysto, exam under anesthesia with retrograde pyelogram given his renal insufficiency due to solitary kidney. Risks and complications of procedure have been discussed with him in detail including, but not limited to, bleeding, pain, infection, injury to adjacent organs, urosepsis. All questions answered to his satisfaction and he desired to proceed. DESCRIPTION OF PROCEDURE: After an informed consent was signed, the patient was taken to the operating room, placed in a dorsal lithotomy position. Bilateral EZ hose SCDs and broad-spectrum antibiotics were provided. A genital area was formally prepped and draped and we used a 21-Bolivian cystoscope. There was no evidence of constricting bulbar urethral stricture. Suggestion of early bulbar stricture, however, this is nonobstructing in wide caliber, did not warrant treatment. Prostatic urethra demonstrates no evidence of obstruction. Previous TUR changes of the prostatic urethra noted. The bladder neck was somewhat deviated due to history of bladder neck contracture anteriorly. I was able to negotiate the 21-Bolivian cystoscope. There was mild resistance with a 21-Bolivian scope. His bladder neck contracture was passively dilated. Upon entering the bladder, the left UO was not identified as it was surgically absent. The right UO was in normal orthotopic position with clear efflux of urine. There was changes in the bladder wall consistent with prior bladder biopsies. There was no evidence of papillary lesion of concern. A 30-degree and a 70-degree lens was utilized. At this time, we intubated the right UO with a 5-Bolivian open-ended catheter and a retrograde pyelogram was performed. He is known to have a right renal pelvic cyst. On the retrograde pyelogram, there was no evidence of hydronephrosis, splaying of the collecting system. No evidence of ureteral calyceal filling defect. There was prompt excretion of contrast. Intraoperative fluoroscopy was taken for retrograde pyelogram with good efflux. At this time, I re-staged his bladder neck. Using a 25-Bolivian sheath, I passively dilated his bladder neck further. He had no problems emptying his bladder, i.e., no urinary retention, therefore I did not leave an indwelling Payton catheter. He tolerated the procedure well and transported to the recovery room in stable condition. He is discharged with ciprofloxacin for course of 3 days, Azo p.r.n. He will return to clinic in few weeks and discuss interval staging cystoscopy. Given that the current workup is negative, I will consider restaging cystoscopy in 6-month interval in the office with followup cytology. The patient may have a left inguinal hernia on preoperative visit, where we examined the patient postop and consider General Surgery evaluation. Job ID: [id number] [facility]
== END 2019-09-28 09:00 | disposition home or self-care (01) ==
LOC: SDC 05:55
PROVIDERS: ATTEND Urology
PROC: BT1DZZZ Fluoroscopy of Right Kidney, Ureter and Bladder (ICD-10-PCS; principal; 2019-09-28)
DX: C67.9 Malignant neoplasm of bladder, unspecified (principal); I10 Essential (primary) hypertension; E78.5 Hyperlipidemia, unspecified; K21.9 Gastro-esophageal reflux disease without esophagitis; Z79.82 Long term (current) use of aspirin; Z79.899 Other long term (current) drug therapy; Z87.891 Personal history of nicotine dependence
CPT/HCPCS: 74420; C1758; C1769; J1956; J2001; J2704; J3010

== ENCOUNTER 2019-11-18 07:09 | Outpatient (CLI) | payer MEDICARE, OTHER ==
[2019-11-18 12:06] LABS: #Eosinphils 0.3 thou/uL (0.0-0.7); #Lymphocytes 1.3 thou/uL (1.20-3.40); #Monocytes 0.5 thou/uL (0.11-0.59); #Neutrophils 2.9 thou/uL (1.40-6.50); %Basophils 0.3 % (0.0-1.0); %Eosinophils 5.3 % (0.0-10.0); %Lymphocytes 25.4 % (21.0-51.0); %Monocytes 10.3 % (0.0-10.0); %Neutrophils 58.7 % (42.0-75.0); Hemoglobin 14.6 g/dL (14.0-18.0); Mean Corpuscular HGB CONC 33.2 g/dL (32.0-36.0); Mean Corpuscular Hemoglobin 30.2 pg (27.0-31.0); Mean Corpuscular Volume 90.9 fL (78.0-98.0); Mean Platelet Volume 9.4 fL (7.4-10.4); Platelet Count 138 thou/uL (130-400); RBC Distribution Width 11.5 % (11.5-14.5); Red Blood Cell (RBC) Count 4.84 mill/uL (4.70-6.10)
[2019-11-18 12:26] LABS: ALT (SGPT) 27 U/L (8-55); AST (SGOT) 22 U/L (5-34); Albumin 4.4 g/dL (3.4-4.8); Alkaline Phosphatase 94 U/L (40-110); Anion Gap 14 mmol/L (10-20); BUN (Urea Nitrogen) 20 mg/dL (8.4-25.7); Bilirubin, Total 0.6 mg/dL (0.2-1.2); Calc. Creatinine Clearance 0 mL/min (70-130); Calcium 9.7 mg/dL (7.8-10.44); Carbon Dioxide 28 mmol/L (23-31); Chloride 103 mmol/L (98-107); Estimated GFR-MDRD 49; Globulin 2.4 g/dL (2.4-3.5); Glucose 100 mg/dL (83-110); Potassium 4.7 mmol/L (3.5-5.1); Protein, Total 6.8 g/dL (5.8-8.1); Sodium 140 mmol/L (136-145)
[2019-11-18 18:21] LABS: SARS-CoV-2 MS2 Positive; SARS-CoV-2 N Gene Negative; SARS-CoV-2 S Gene Negative; SARS-CoV-2 orf1ab Negative
--- NOTE | 2019-11-20 16:36 | EKG ---
Test Reason : Blood Pressure : / mmHG Vent. Rate : 045 BPM Atrial Rate : 045 BPM P-R Int : 140 ms QRS Dur : 092 ms QT Int : 436 ms P-R-T Axes : 046 072 073 degrees QTc Int : 377 ms Marked sinus bradycardia Abnormal ECG When compared with ECG of 14-SEP-2019 10:42, Minimal criteria for Inferior infarct are no longer Present Confirmed by JAZMYN DOS SANTOS ([id number]) on 11/20/2019 4:36:24 PM Referred By: FLORIDALMA Confirmed By:JAZMYN DOS SANTOS
== END 2019-11-18 07:10 | disposition home or self-care (01) ==
LOC: LABBT 07:09
PROVIDERS: ATTEND Surgery
DX: Z01.818 Encounter for other preprocedural examination (principal); Z11.59 Encounter for screening for other viral diseases; K40.90 Unilateral inguinal hernia, without obstruction or gangrene, not specified as recurrent
CPT/HCPCS: 80053; 85025; 93005; U0003; 87635; 93010

== ENCOUNTER 2019-11-23 06:52 | Day surgery (SDC) | payer MEDICARE, OTHER ==
[2019-11-18 11:34] VITALS: BMI 27.2
[2019-11-23] MEDS ORDERED: Bupivacaine 0.25% HCL 30 ML VIAL ONE (08:04)
[2019-11-23] MEDS ORDERED: Lidocaine 1% w/Epinephrine 1:100K 20 ML VIAL ONE (08:04)
[2019-11-23] MEDS ORDERED: Fentanyl 100 MCG/2 ML VIAL ONE ×2 (08:21)
[2019-11-23] MEDS ORDERED: Glycopyrrolate 0.2 MG/ML 5 ML SYRINGE ONE (11:54)
[2019-11-23] MEDS ORDERED: EPHEDRINE 25 MG/5 ML SYRINGE ONE (11:54)
[2019-11-23] MEDS ORDERED: Dexamethasone 20 MG/5 ML VIAL ONE (11:54)
[2019-11-23] MEDS ORDERED: Ketorolac Tromethamine 30 MG/ML VIAL ONE (11:54)
[2019-11-23] MEDS ORDERED: Ondansetron PF 4 MG/2 ML Vial ONE (11:54)
[2019-11-23] MEDS ORDERED: PROPOFOL 200 MG/20 ML VIAL ONE (11:54)
[2019-11-23] MEDS ORDERED: Lidocaine 1% PF 5 ML VIAL ONE (11:54)
--- NOTE | 2019-11-23 13:01 | OP ---
DATE OF PROCEDURE: 11/23/2019 PREOPERATIVE DIAGNOSIS: Left inguinal hernia. PROCEDURE PERFORMED: Left inguinal hernia repair with mesh. INDICATIONS: This is a 74-year-old male with a painful left inguinal hernia. FINDINGS: Left direct inguinal hernia. DESCRIPTION OF PROCEDURE: After informed consent was obtained, the patient was taken to the operating room, given general endotracheal anesthesia, placed in the supine position. His groin was prepped and draped in usual fashion. Local anesthesia was infiltrated subcutaneously and deep. A transverse left inguinal incision was performed, subcu divided sharply. The fascia external oblique was incised in direction of its fibers through the external ring. Spermatic cord was isolated with Baring drain. There was no hernia sac. There was a large direct inguinal hernia, which was circumscribed and reduced. Reduction was maintained utilizing a PHS hernia system. The posterior layer placed in the preperitoneal space, anterior was laid out, tucked under the external oblique fascia laterally, sutured to the pubic tubercle medially and a notch was cut out for the spermatic cord. Hemostasis was assured. The external oblique fascia closed with a running 3-0 Vicryl. Elizabeth was closed with interrupted 3-0 Vicryl and the skin closed with a running subcuticular 4-0 Rapide. Steri-Strips applied. Sterile bandage applied. Then, at the conclusion, the drapes were removed. Pulled the testicle down, noticed he had a hydrocele in the left side that was not communicating. Job ID: [id number]
== END 2019-11-23 14:00 | disposition home or self-care (01) ==
LOC: SDC 06:52
PROVIDERS: ATTEND Surgery
PROC: 0YQ60ZZ Repair Left Inguinal Region, Open Approach (ICD-10-PCS; principal; 2019-11-23)
DX: K40.90 Unilateral inguinal hernia, without obstruction or gangrene, not specified as recurrent (principal); I10 Essential (primary) hypertension; E78.5 Hyperlipidemia, unspecified; Z79.82 Long term (current) use of aspirin; Z79.899 Other long term (current) drug therapy; Z87.891 Personal history of nicotine dependence
CPT/HCPCS: 49505; C1781; J0690; J1100; J1885; J2001; J2405; J2704; J3010; S0020

== ENCOUNTER 2020-07-12 04:03 | Inpatient (IN) | payer MEDICARE, OTHER ==
[2020-07-12] MEDS ORDERED: Dexamethasone 10 MG/ML VIAL ONE (04:24)
[2020-07-12 05:04] LABS: ALT (SGPT) 27 U/L (8-55); AST (SGOT) 25 U/L (5-34); Albumin 3.1 g/dL (3.4-4.8); Alkaline Phosphatase 88 U/L (40-110); Anion Gap 16 mmol/L (10-20); BUN (Urea Nitrogen) 35 mg/dL (8.4-25.7); Bilirubin, Total 0.5 mg/dL (0.2-1.2); Calc. Creatinine Clearance 0 mL/min (70-130); Calcium 8.7 mg/dL (7.8-10.44); Carbon Dioxide 26 mmol/L (23-31); Chloride 99 mmol/L (98-107); Glucose 142 mg/dL (83-110); Potassium 3.9 mmol/L (3.5-5.1); Protein, Total 6.1 g/dL (5.8-8.1); Sodium 137 mmol/L (136-145)
[2020-07-12 05:05] LABS: Hemoglobin 13.6 g/dL (14.0-18.0); Mean Corpuscular HGB CONC 30.9 g/dL (32.0-36.0); Mean Corpuscular Hemoglobin 28.1 pg (27.0-31.0); Mean Corpuscular Volume 90.9 fL (78.0-98.0); RBC Distribution Width 12.3 % (11.5-14.5); Red Blood Cell (RBC) Count 4.84 mill/uL (4.70-6.10); White Blood Cell (WBC) Count 12.2 thou/uL (4.8-10.8)
[2020-07-12 05:08] LABS: #Lymphocytes 0.3 thou/uL (1.20-3.40); #Monocytes 0.2 thou/uL (0.11-0.59); #Neutrophils 11.8 thou/uL (1.40-6.50); %Basophils 0.1 % (0.0-1.0); %Lymphocytes 2.2 % (21.0-51.0); %Monocytes 1.3 % (0.0-10.0); %Neutrophils 96.4 % (42.0-75.0); Mean Platelet Volume 8.9 fL (7.4-10.4); Platelet Count 110 thou/uL (130-400); Platelet Morphology Comment Appears Decreased
--- NOTE | 2020-07-12 07:42 | CT ---
PRELIMINARY REPORT/[facility]OLOG[facility]/EMERGENCY AFTER HOURS PROCEDURE: EXAM: CTA Chest with Intravenous Contrast CLINICAL HISTORY: Respiratory Distress//dyspnea//covid + TECHNIQUE: Axial CTA images of the chest with intravenous contrast. Three-dimensional MIP/volume rend ered reformations were performed. CONTRAST: With; ISOVUE 370;60mL COMPARISON: None FINDINGS: Normal caliber main pulmonary artery. Well opacified pulmonary arterial tree. No pulmonar y embolism. Cardiomegaly. Coronary artery calcifications. No pericardial effusion. Thoracic aorta is normal in course and caliber. No periaortic fluid or stranding. No pneumothorax or effusion. Posterior left pleural calcifications. Extensive patchy areas of groundglass attenuation and interstitial thickening. Cylindrical bronchiectasis. The central airways are patent. Imaged port ion of the upper abdomen is unremarkable. The superficial soft tissues are unremarkable. Multiple old posterior left rib fracture deformities. No acute bony abnormality or worrisome osseous lesions i dentified. IMPRESSION: No pulmonary embolism. Extensive bilateral airspace disease compatible with reported beka l pneumonia. No pneumothorax or pleural effusion. Coronary artery calcifications. ELECTRONICALLY SIGNED BY: Luis Perez MD Jul 12, 2020 6:22:03 AM [facility]AGGER FINAL REPORT CT ARTERIOGRAM CHEST WITH IV CONTRAST AND 3D IMAGING: DATE: 07/12/2020. TIME: Performed on emergency basis at 0553 hours. HISTORY: Chest pain. Dyspnea. FINDINGS: Agree with the preliminary report by Dr. Huff from direct radiology. No evidence of pulmonary embo lon. Extensive bilateral infiltrates with the appearance of COVID pneumonitis. Atherosclerosis. Old bilateral rib fractures. Transcribed Date/Time: 07/12/2020 9:24 AM
[2020-07-12 07:43] LABS: Lactic Acid 1.1 mmol/L (0.5-2.2)
--- NOTE | 2020-07-12 08:07 | RAD ---
Chest one view HISTORY: Respiratory distress. COVID positive. COMPARISON: 10/25/2018. IMPRESSION : Cardiac silhouette is magnified and enlarged. Pulmonary vasculature predominantly obscured by dense p atchy areas of infiltrate involving each lung. Calcified granulomata are consistent with healed granulomatous disease. Mediastinum is midline. No evidence of pneumothorax. Old left rib fractures. IMPRESSION : Dense bilateral infiltrates. Correlate for COVID pneumonitis. Cardiomegaly.
[2020-07-12] MEDS ORDERED: Ondansetron ODT 4 MG TAB PO PRN (08:57)
[2020-07-12] MEDS ORDERED: Senokot S 8.6-50 MG TAB PO PRN (08:57)
[2020-07-12] MEDS ORDERED: Iopamidol-370 76% 500 ML 1 ML ONE (11:07)
[2020-07-12] MEDS ORDERED: HYDROcodone/Acetaminophen 10/325 mg Tablet PO PRN (14:15)
--- NOTE | 2020-07-12 14:46 | HP ---
CHIEF COMPLAINT: Shortness of breath and cough. HISTORY OF PRESENT ILLNESS: A 75-year-old male with a history of hypertension and hyperlipidemia, presenting with few day duration of shortness of breath and worsening cough. He did not have any fever. Does not smoke. No family history of any recent illness. He is tested positive for COVID. He had elevated leukocytosis. His chest x-ray showed diffuse bilateral infiltrates consistent with COVID pneumonia. CT chest negative for pulmonary embolism. He is desaturating rapidly with minimal exertion and sats dropped to 60%. The patient will be initially admitted to [facility]. REVIEW OF SYSTEMS: 13-point review of systems reviewed with the patient. Pertinents are addressed in the history of present illness. The patient currently denies any nausea, vomiting, abdominal pain, constipation, hematuria, dysuria, or hematochezia. No headache or blurriness. No rash in the body. No recent fever or chills. Denies polydipsia or polyuria. Rest of the review of systems are negative. ALLERGIES: HE HAS NO KNOWN DRUG ALLERGY. PAST MEDICAL HISTORY: Hypertension, hyperlipidemia. MEDICATIONS: 1. Clonidine 1 patch every 7 days. 2. Multivitamin. 3. Claritin 5 mg as needed. 4. [place] 1 tablet a day as needed. 5. Lipitor 40 mg at bedtime. 6. Aspirin 81 mg daily. SOCIAL HISTORY: The patient does not smoke or drink alcohol. Lives with family. FAMILY HISTORY: Noncontributory. PHYSICAL EXAMINATION: GENERAL: The patient is alert and oriented, currently afebrile. He is normotensive. He is on high-flow oxygen at this time. Nontoxic appearing. He is short of breath while talking. CARDIOVASCULAR: Regular rate and rhythm without murmurs, rubs, or gallops. LUNGS: Extensive crackles. Mild inspiratory wheezing noted. ABDOMEN: Soft, nontender, nondistended. Good bowel sounds. EXTREMITIES: Without any pitting edema and rash. PSYCHIATRIC: Appropriate mood and affect. SKIN: No rash. LABORATORY DATA: White count of 12.2, hemoglobin 13.6, platelets 110. His creatinine is 1.7. Lactic acid 3.2. BNP 165. Chest x-ray, bilateral infiltrate. CT chest negative for pulmonary embolism. IMPRESSION AND PLAN: A 75-year-old male with history of hypertension and hyperlipidemia, presenting with. 1. COVID pneumonia. 2. Hypoxic respiratory failure. The patient will continue with Decadron, vitamin C, zinc as well as vitamin D. I checked with the Infectious Disease. He is not eligible to get remdesivir. 3. Hypertension. Continue with his clonidine patch as well as hydralazine as needed. 4. Hyperlipidemia. Continue with Lipitor. 5. 6. Leukocytosis, probably secondary to infiltrate. We will put him on empiric ceftriaxone and Zithromax. 7. Acute kidney injury, probably COVID pneumonia along with dehydration. Challenge with short course of IV fluid. The patient should be able to have a good p.o. intake. 8. Elevated BNP. Not significant enough to consider for cardiac etiology at this time. We will follow the clinical course. 9. Because of the significant hypoxia with minimal exertion, the patient would be initially admitted at [facility]. If he can come off high-flow oxygen, then likely to be transferred to the observation unit. 10. Deep vein thrombosis prophylaxis with Lovenox b.i.d. Job ID: [id number] [facility]
[2020-07-12] MEDS ORDERED: Azithromycin 250 MG TAB PO SCH (16:45)
[2020-07-12] MEDS ORDERED: cefTRIAXone\\ROCEPHIN 1 GM VIAL ONE (17:27)
[2020-07-12] MEDS ORDERED: Acetaminophen 325 MG TAB ONE (17:27)
[2020-07-12] MEDS ORDERED: Azithromycin 250 MG TAB ONE (17:29)
[2020-07-12] MEDS: Acetaminophen 325 MG TAB PO PRN (17:36)
[2020-07-12] MEDS: cefTRIAXone\\ROCEPHIN 1 GM in Sodium Chloride 0.9% 100 ML IVPB SCH (18:57)
[2020-07-12] MEDS: guaiFENesin 200 MG TAB PO SCH (21:30)
[2020-07-13] MEDS: Enoxaparin Sodium 30 MG/0.3 ML SYRINGE SC SCH ×2 (00:56→22:37)
[2020-07-13] MEDS: Aspirin 81 mg Enteric Coated Tablet PO SCH ×2 (00:57→22:37)
[2020-07-13] MEDS: Atorvastatin Calcium 40 MG TAB PO SCH ×2 (00:57→22:37)
[2020-07-13] MEDS: guaiFENesin 200 MG TAB PO SCH ×7 (00:57→22:44)
[2020-07-13] MEDS: Acetaminophen 325 MG TAB PO PRN (00:58)
[2020-07-13] MEDS: cloNIDine 0.1mg/24 Hour PATCH TD SCH (02:07)
[2020-07-13] MEDS: Dexamethasone 4 MG TAB PO SCH (08:11)
[2020-07-13] MEDS: Ascorbic Acid 500 mg Chewable Tablet PO SCH (08:11)
[2020-07-13] MEDS: Zinc Sulfate 220 MG CAP PO SCH (08:11)
[2020-07-13] MEDS: Multivit, Therapeutic 1 TAB PO SCH (08:11)
[2020-07-13] MEDS: Cholecalciferol 1,000 UNITS (25 MCG) TAB PO SCH (08:11)
[2020-07-13] MEDS: Azithromycin 250 MG TAB PO SCH (08:12)
[2020-07-13 12:46] LABS: Anion Gap 17 mmol/L (10-20); BUN (Urea Nitrogen) 32 mg/dL (8.4-25.7); Calc. Creatinine Clearance 56 mL/min (70-130); Calcium 8.6 mg/dL (7.8-10.44); Carbon Dioxide 25 mmol/L (23-31); Chloride 102 mmol/L (98-107); Glucose 127 mg/dL (83-110); Potassium 4.8 mmol/L (3.5-5.1); Sodium 139 mmol/L (136-145)
[2020-07-13 12:51] LABS: Band 19 % (5-11); Lymphocytes 1 % (21-51); MDiff Complete? YES; Mean Corpuscular HGB CONC 33.8 g/dL (32.0-36.0); Mean Corpuscular Hemoglobin 31.3 pg (27.0-31.0); Mean Corpuscular Volume 92.6 fL (78.0-98.0); Mean Platelet Volume 5.3 fL (7.4-10.4); Monocytes 2 % (0-10); Neutrophil 78 % (42-75); Platelet Count 104 thou/uL (130-400); Platelet Morphology Comment Appears Decreased; Polychromasia SLIGHT = 2-3 cells (100X) (0-2/hpf); RBC Distribution Width 12.5 % (11.5-14.5); Red Blood Cell (RBC) Count 4.48 mill/uL (4.70-6.10); White Blood Cell (WBC) Count 13.4 thou/uL (4.8-10.8)
--- NOTE | 2020-07-13 15:57 | PDOC.HOSPP ---
- Subjective Encounter Date: 07/13/20 Encounter Time: 11:28 Subjective: he feels slightly better less cough. He is on high flow oxygen and satting about 96% - Objective Vital Signs & Weight: Vital Signs (12 hours) Temp Pulse Resp BP Pulse Ox 07/13/20 11:35 98.1 F 59 L 20 153/74 H 96 07/13/20 08:20 97.9 F 61 12 144/76 H 99 07/13/20 04:30 98.3 F 56 L 19 139/65 97 Weight Weight 186 lb 12.8 oz I&O: 07/12/20 07/13/20 07/14/20 06:59 06:59 06:59 Intake Total 300 Output Total 300 Balance 0 Result Diagrams: 07/13/20 12:18 07/13/20 12:18 Hospitalist ROS - Medication Medications: Active Medications Generic Name Dose Route Start Last Admin Trade Name Freq PRN Reason Stop Dose Admin Acetaminophen 650 mg 07/12/20 08:57 07/13/20 00:58 Acetaminophen 325 Mg Tab PO 650 mg Q4H PRN Administration Headache/Fever/Mild Pain (1-3) Ascorbic Acid 1,000 mg 07/13/20 09:00 07/13/20 08:11 Ascorbic Acid 500 Mg Chewable Tablet PO 1,000 mg DAILY CM Administration Aspirin 81 mg 07/12/20 21:00 07/13/20 00:57 Aspirin 81 Mg Enteric Coated Tablet PO 81 mg HS CM Administration Atorvastatin Calcium 40 mg 07/12/20 21:00 07/13/20 00:57 Atorvastatin Calcium 40 Mg Tab PO 40 mg QPM CM Administration Azithromycin 500 mg 07/13/20 09:00 07/13/20 08:12 Azithromycin 250 Mg Tab PO 07/16/20 09:01 500 mg DAILY CM Administration Cholecalciferol 2,000 units 07/13/20 09:00 07/13/20 08:11 Cholecalciferol 1,000 Units (25 Mcg) Tab PO 2,000 units DAILY CM Administration Clonidine 0.1 mg 07/13/20 03:00 07/13/20 02:07 Clonidine 0.1mg/24 Hour Patch TD 0.1 mg Q7D CM Administration Dexamethasone 6 mg 07/13/20 08:00 07/13/20 08:11 Dexamethasone 4 Mg Tab PO 6 mg QAM-WM CM Administration Enoxaparin Sodium 30 mg 12/31/20 21:00 07/13/20 00:56 Enoxaparin Sodium 30 Mg/0.3 Ml Syringe SC 30 mg 2100 CM Administration Guaifenesin 400 mg 07/12/20 17:00 07/13/20 13:14 Guaifenesin 200 Mg Tab PO 07/14/20 17:01 400 mg Q4HR CM Administration Ceftriaxone Sodium 1 gm/ 100 mls @ 200 mls/hr 07/12/20 17:00 07/12/20 18:57 Sodium Chloride IVPB 100 mls 1700 CM Administration Multivitamins 1 tab 07/13/20 09:00 07/13/20 08:11 Multivit, Therapeutic 1 Tab PO 1 tab QAM CM Administration Zinc Sulfate 220 mg 07/13/20 09:00 07/13/20 08:11 Zinc Sulfate 220 Mg Cap PO 220 mg DAILY CM Administration - Exam General Appearance: NAD, awake alert Eye: PERRL ENT: normocephalic atraumatic Neck: supple Heart: RRR, normal peripheral pulses Respiratory: CTAB, normal chest expansion Gastrointestinal: soft, normal bowel sounds Neurological: no focal deficits Hosp A/P - Plan COVID-19 Pneumonia Hypoxic respiratory failure Leukocytosis secondary to Covid pneumonia --Decadron ceftriaxone Zithromax vitamin C and zinc and vitamin D, guaifenesin as needed for cough Lovenox renally dosed Acute kidney injury -Improvement with IV fluid Hypertension Hydralazine as needed Clonidine patch as home regimen Hyperlipidemia On Lipitor
[2020-07-13] MEDS: cefTRIAXone\\ROCEPHIN 1 GM in Sodium Chloride 0.9% 100 ML IVPB SCH (19:22)
[2020-07-13] MEDS ORDERED: Loratadine 10 MG TAB PO PRN (20:50)
[2020-07-14] MEDS: hydrALAZINE 20 MG/ML VIAL SLOW IVP PRN ×2 (01:03→20:57)
[2020-07-14] MEDS: Acetaminophen 325 MG TAB PO PRN (01:04)
[2020-07-14] MEDS: Melatonin 3 MG TAB PO PRN ×2 (02:02→20:55)
[2020-07-14] MEDS: Cepastat Lozenges 1 LOZ PO PRN ×3 (02:02→10:09)
[2020-07-14] MEDS: guaiFENesin 200 MG TAB PO SCH ×5 (02:03→18:05)
[2020-07-14 05:22] LABS: #Lymphocytes 0.3 thou/uL (1.20-3.40); #Monocytes 0.2 thou/uL (0.11-0.59); #Neutrophils 10.1 thou/uL (1.40-6.50); %Basophils 0.4 % (0.0-1.0); %Lymphocytes 2.6 % (21.0-51.0); %Monocytes 2.2 % (0.0-10.0); %Neutrophils 94.8 % (42.0-75.0); Hemoglobin 13.1 g/dL (14.0-18.0); Mean Corpuscular Hemoglobin 30.3 pg (27.0-31.0); Mean Corpuscular Volume 91.6 fL (78.0-98.0); Mean Platelet Volume 8.9 fL (7.4-10.4); Platelet Count 122 thou/uL (130-400); RBC Distribution Width 12.2 % (11.5-14.5); Red Blood Cell (RBC) Count 4.33 mill/uL (4.70-6.10); White Blood Cell (WBC) Count 10.7 thou/uL (4.8-10.8)
[2020-07-14 05:42] LABS: Anion Gap 16 mmol/L (10-20); BUN (Urea Nitrogen) 34 mg/dL (8.4-25.7); Calc. Creatinine Clearance 65 mL/min (70-130); Calcium 8.4 mg/dL (7.8-10.44); Carbon Dioxide 23 mmol/L (23-31); Chloride 103 mmol/L (98-107); Glucose 107 mg/dL (83-110); Potassium 4.6 mmol/L (3.5-5.1); Sodium 137 mmol/L (136-145)
[2020-07-14] MEDS: Cholecalciferol 1,000 UNITS (25 MCG) TAB PO SCH (10:09)
[2020-07-14] MEDS: Multivit, Therapeutic 1 TAB PO SCH (10:09)
[2020-07-14] MEDS: Zinc Sulfate 220 MG CAP PO SCH (10:09)
[2020-07-14] MEDS: Ascorbic Acid 500 mg Chewable Tablet PO SCH (10:09)
[2020-07-14] MEDS: Dexamethasone 4 MG TAB PO SCH (10:10)
[2020-07-14] MEDS: Azithromycin 250 MG TAB PO SCH (11:03)
--- NOTE | 2020-07-14 11:50 | EKG ---
Test Reason : Blood Pressure : / mmHG Vent. Rate : 074 BPM Atrial Rate : 074 BPM P-R Int : 116 ms QRS Dur : 090 ms QT Int : 326 ms P-R-T Axes : 051 057 089 degrees QTc Int : 361 ms Sinus rhythm with Premature atrial complexes Possible Left atrial enlargement Left ventricular hypertrophy with repolarization abnormality Abnormal ECG Confirmed by ALISHA RITCHIE M.D. ([id number]), research editor YAZMIN BROWN ([id number]) on 07/14/2020 11:50:34 AM Referred By: Confirmed By:ALISHA RITCHIE M.D.
--- NOTE | 2020-07-14 15:36 | PDOC.HOSPP ---
- Subjective Encounter Date: 07/14/20 Subjective: He is getting better. Feels like his breathing is more comfortable. - Objective Vital Signs & Weight: Vital Signs (12 hours) Temp Pulse Resp BP Pulse Ox 07/14/20 11:20 98.1 F 49 L 18 161/76 H 98 07/14/20 08:20 98.4 F 43 L 24 H 136/66 100 07/14/20 03:35 98.1 F 50 L 20 138/65 98 Weight Weight 184 lb 9 oz I&O: 07/13/20 07/14/20 07/15/20 06:59 06:59 06:59 Intake Total 300 620 Output Total 300 530 Balance 0 90 Result Diagrams: 07/14/20 04:52 07/14/20 04:52 Hospitalist ROS - Medication Medications: Active Medications Generic Name Dose Route Start Last Admin Trade Name Freq PRN Reason Stop Dose Admin Acetaminophen 650 mg 07/12/20 08:57 07/14/20 01:04 Acetaminophen 325 Mg Tab PO 650 mg Q4H PRN Administration Headache/Fever/Mild Pain (1-3) Ascorbic Acid 1,000 mg 07/13/20 09:00 07/14/20 10:09 Ascorbic Acid 500 Mg Chewable Tablet PO 1,000 mg DAILY CM Administration Aspirin 81 mg 07/12/20 21:00 07/13/20 22:37 Aspirin 81 Mg Enteric Coated Tablet PO 81 mg HS CM Administration Atorvastatin Calcium 40 mg 07/12/20 21:00 07/13/20 22:37 Atorvastatin Calcium 40 Mg Tab PO 40 mg QPM CM Administration Cholecalciferol 2,000 units 07/13/20 09:00 07/14/20 10:09 Cholecalciferol 1,000 Units (25 Mcg) Tab PO 2,000 units DAILY CM Administration Clonidine 0.1 mg 07/13/20 03:00 07/13/20 02:07 Clonidine 0.1mg/24 Hour Patch TD 0.1 mg Q7D CM Administration Dexamethasone 6 mg 07/13/20 08:00 07/14/20 10:10 Dexamethasone 4 Mg Tab PO 6 mg QAM-WM CM Administration Guaifenesin 400 mg 07/12/20 17:00 07/14/20 14:45 Guaifenesin 200 Mg Tab PO 07/14/20 17:01 400 mg Q4HR CM Administration Hydralazine HCl 10 mg 07/12/20 14:18 07/14/20 01:03 Hydralazine 20 Mg/Ml Vial SLOW IVP 10 mg Q4H PRN Administration SBP>150 Melatonin 3 mg 07/14/20 01:37 07/14/20 02:02 Melatonin 3 Mg Tab PO 3 mg HSPRN PRN Administration Insomnia Multivitamins 1 tab 07/13/20 09:00 07/14/20 10:09 Multivit, Therapeutic 1 Tab PO 1 tab QAM CM Administration Throat Lozenges 1 med 07/14/20 01:37 07/14/20 10:09 Cepastat Lozenges 1 Med PO 1 med Q2H PRN Administration Sore Throat Zinc Sulfate 220 mg 07/13/20 09:00 07/14/20 10:09 Zinc Sulfate 220 Mg Cap PO 220 mg DAILY CM Administration - Exam General Appearance: NAD, awake alert Heart: RRR, no murmur, no gallops, no rubs, normal peripheral pulses Respiratory: no wheezes, no ronchi Respiratory - other findings: Bibasilar rales. Sats dropped to low 80s with talking. Gastrointestinal: soft, non-tender, non-distended, normal bowel sounds, no palpable masses, no hepatomegaly, no splenomegaly, no bruit Extremities: no cyanosis, no clubbing, no edema Skin: normal turgor Musculoskeletal: normal tone, normal strength, no muscle wasting Psychiatric: normal affect, normal behavior, A&O x 3 Hosp A/P (1) Acute respiratory failure with hypoxia Code(s): J96.01 - ACUTE RESPIRATORY FAILURE WITH HYPOXIA Status: Acute (2) Pneumonia due to COVID-19 virus Code(s): U07.1 - COVID-19; J12.82 - Status: Acute (3) CKD (chronic kidney disease), stage III Code(s): N18.3 - CHRONIC KIDNEY DISEASE, STAGE 3 (MODERATE) * DO NOT USE * Status: Chronic (4) GERD (gastroesophageal reflux disease) Code(s): K21.9 - GASTRO-ESOPHAGEAL REFLUX DISEASE WITHOUT ESOPHAGITIS Status: Chronic Qualifiers: Esophagitis presence: without esophagitis Qualified Code(s): K21.9 - Gastro-esophageal reflux disease without esophagitis (5) HLD (hyperlipidemia) Code(s): E78.5 - HYPERLIPIDEMIA, UNSPECIFIED Status: Chronic Qualifiers: Hyperlipidemia type: unspecified Qualified Code(s): E78.5 - Hyperlipidemia, unspecified (6) HTN (hypertension) Code(s): I10 - ESSENTIAL (PRIMARY) HYPERTENSION Status: Chronic Qualifiers: Hypertension type: essential hypertension Qualified Code(s): I10 - Essential (primary) hypertension - Plan This patient is a 75-year-old male who is generally quite healthy. He presented with shortness of breath, fever, chills that started around July 02. He has tested positive for Covid. COVID-19 pneumonia: He has been on the window of remdesivir. Continue Decadron, vitamin supplementation. Repeat inflammatory markers on 07/14/2020 reveal his CRP is down from 30-18 but his D-dimer is up over 3. We will increase his Lovenox to 40 mg twice daily. Patient had been receiving p.o. prednisone due to a vertigo issue prior to falling ill with the Covid. This accounts for his initial leukocytosis. No evidence of bacterial infection. Antibiotics discontinued on 07/14/2020. Acute hypoxic respiratory failure: Patient is on fairly significant high flow nasal cannula oxygen supplementation. At rest his sats remained in the upper 90s. With talking his sats dropped into the 80s. Bronchodilators. Long discussion with the patient on 07/14/2020 regarding the likely prolonged course related to his hypoxia. Hypertension: Continue with his Catapres patch. Hyperlipidemia: Continue with atorvastatin at his home dose. SERGIO on CKD stage III: Patient has had some hydration and his GFR is actually above his baseline. DVT prophylaxis: Continue with Lovenox at escalated dose due to Covid and elevated D-dimer. PUD prophylaxis: PPI given the fact that he is on the steroids.
[2020-07-14] MEDS: Enoxaparin Sodium 40 MG/0.4 ML SYRINGE SC SCH (20:55)
[2020-07-14] MEDS: Aspirin 81 mg Enteric Coated Tablet PO SCH (20:55)
[2020-07-14] MEDS: Atorvastatin Calcium 40 MG TAB PO SCH (20:55)
[2020-07-14] MEDS ORDERED: Enoxaparin Sodium 40 MG/0.4 ML SYRINGE SC SCH (21:00)
[2020-07-15 05:07] LABS: #Lymphocytes 0.3 thou/uL (1.20-3.40); #Monocytes 0.3 thou/uL (0.11-0.59); #Neutrophils 9.8 thou/uL (1.40-6.50); %Basophils 0.2 % (0.0-1.0); %Eosinophils 0.1 % (0.0-10.0); %Lymphocytes 2.8 % (21.0-51.0); Hemoglobin 13.2 g/dL (14.0-18.0); Mean Corpuscular HGB CONC 31.8 g/dL (32.0-36.0); Mean Corpuscular Hemoglobin 28.9 pg (27.0-31.0); Mean Corpuscular Volume 90.8 fL (78.0-98.0); Mean Platelet Volume 8.8 fL (7.4-10.4); Platelet Count 145 thou/uL (130-400); Red Blood Cell (RBC) Count 4.58 mill/uL (4.70-6.10); White Blood Cell (WBC) Count 10.4 thou/uL (4.8-10.8)
[2020-07-15 05:28] LABS: Anion Gap 15 mmol/L (10-20); BUN (Urea Nitrogen) 33 mg/dL (8.4-25.7); Calc. Creatinine Clearance 65 mL/min (70-130); Calcium 8.4 mg/dL (7.8-10.44); Carbon Dioxide 24 mmol/L (23-31); Chloride 101 mmol/L (98-107); Glucose 103 mg/dL (83-110); Potassium 4.8 mmol/L (3.5-5.1); Sodium 135 mmol/L (136-145)
[2020-07-15] MEDS: Multivit, Therapeutic 1 TAB PO SCH (09:19)
[2020-07-15] MEDS: Enoxaparin Sodium 40 MG/0.4 ML SYRINGE SC SCH ×2 (09:19→20:20)
[2020-07-15] MEDS: Ascorbic Acid 500 mg Chewable Tablet PO SCH (09:20)
[2020-07-15] MEDS: Dexamethasone 4 MG TAB PO SCH (09:20)
[2020-07-15] MEDS: Zinc Sulfate 220 MG CAP PO SCH (09:20)
[2020-07-15] MEDS: Cholecalciferol 1,000 UNITS (25 MCG) TAB PO SCH (09:20)
--- NOTE | 2020-07-15 15:41 | PDOC.HOSPP ---
- Subjective Encounter Date: 07/15/20 Subjective: Patient reports he feels like he is doing about the same today. Still has some cough. - Objective Vital Signs & Weight: Vital Signs (12 hours) Temp Pulse Resp BP Pulse Ox 07/15/20 13:15 98.8 F 57 L 24 H 153/68 H 94 L 07/15/20 09:20 98.3 F 53 L 28 H 142/64 H 98 07/15/20 04:10 98.3 F 51 L 20 130/69 99 Weight Weight 183 lb 3.2 oz I&O: 07/14/20 07/15/20 07/16/20 06:59 06:59 06:59 Intake Total 620 480 Output Total 530 1000 Balance 90 -520 Result Diagrams: 07/15/20 04:43 07/15/20 04:43 Hospitalist ROS - Medication Medications: Active Medications Generic Name Dose Route Start Last Admin Trade Name Freq PRN Reason Stop Dose Admin Acetaminophen 650 mg 07/12/20 08:57 07/14/20 01:04 Acetaminophen 325 Mg Tab PO 650 mg Q4H PRN Administration Headache/Fever/Mild Pain (1-3) Ascorbic Acid 1,000 mg 07/13/20 09:00 07/15/20 09:20 Ascorbic Acid 500 Mg Chewable Tablet PO 1,000 mg DAILY CM Administration Aspirin 81 mg 07/12/20 21:00 07/14/20 20:55 Aspirin 81 Mg Enteric Coated Tablet PO 81 mg HS CM Administration Atorvastatin Calcium 40 mg 07/12/20 21:00 07/14/20 20:55 Atorvastatin Calcium 40 Mg Tab PO 40 mg QPM CM Administration Cholecalciferol 2,000 units 07/13/20 09:00 07/15/20 09:20 Cholecalciferol 1,000 Units (25 Mcg) Tab PO 2,000 units DAILY CM Administration Clonidine 0.1 mg 07/13/20 03:00 07/13/20 02:07 Clonidine 0.1mg/24 Hour Patch TD 0.1 mg Q7D CM Administration Dexamethasone 6 mg 07/13/20 08:00 07/15/20 09:20 Dexamethasone 4 Mg Tab PO 6 mg QAM-WM CM Administration Enoxaparin Sodium 40 mg 07/14/20 21:00 07/15/20 09:19 Enoxaparin Sodium 40 Mg/0.4 Ml Syringe SC 40 mg BID CM Administration Hydralazine HCl 10 mg 07/12/20 14:18 07/14/20 20:57 Hydralazine 20 Mg/Ml Vial SLOW IVP 10 mg Q4H PRN Administration SBP>150 Melatonin 3 mg 07/14/20 01:37 07/14/20 20:55 Melatonin 3 Mg Tab PO 3 mg HSPRN PRN Administration Insomnia Multivitamins 1 tab 07/13/20 09:00 07/15/20 09:19 Multivit, Therapeutic 1 Tab PO 1 tab QAM CM Administration Pantoprazole Sodium 40 mg 07/15/20 09:00 07/15/20 09:19 Pantoprazole 40 Mg Tab PO 40 mg DAILY CM Administration Throat Lozenges 1 med 07/14/20 01:37 07/14/20 10:09 Cepastat Lozenges 1 Med PO 1 med Q2H PRN Administration Sore Throat Zinc Sulfate 220 mg 07/13/20 09:00 07/15/20 09:20 Zinc Sulfate 220 Mg Cap PO 220 mg DAILY CM Administration - Exam General Appearance: NAD, awake alert Heart: RRR, no murmur, no gallops, no rubs, normal peripheral pulses Respiratory: no wheezes, no ronchi, normal chest expansion, no tachypnea, normal percussion Respiratory - other findings: Bibasilar rales. Fair air exchange. Gastrointestinal: soft, non-tender, non-distended, normal bowel sounds, no palpable masses, no hepatomegaly, no splenomegaly, no bruit Extremities: no cyanosis, no clubbing, no edema Skin: normal turgor Musculoskeletal: normal tone, normal strength, no muscle wasting Psychiatric: normal affect, normal behavior, A&O x 3 Hosp A/P (1) Acute respiratory failure with hypoxia Code(s): J96.01 - ACUTE RESPIRATORY FAILURE WITH HYPOXIA Status: Acute (2) Pneumonia due to COVID-19 virus Code(s): U07.1 - COVID-19; J12.82 - Status: Acute (3) CKD (chronic kidney disease), stage III Code(s): N18.3 - CHRONIC KIDNEY DISEASE, STAGE 3 (MODERATE) * DO NOT USE * Status: Chronic (4) GERD (gastroesophageal reflux disease) Code(s): K21.9 - GASTRO-ESOPHAGEAL REFLUX DISEASE WITHOUT ESOPHAGITIS Status: Chronic Qualifiers: Esophagitis presence: without esophagitis Qualified Code(s): K21.9 - Gastro-esophageal reflux disease without esophagitis (5) HLD (hyperlipidemia) Code(s): E78.5 - HYPERLIPIDEMIA, UNSPECIFIED Status: Chronic Qualifiers: Hyperlipidemia type: unspecified Qualified Code(s): E78.5 - Hyperlipidemia, unspecified (6) HTN (hypertension) Code(s): I10 - ESSENTIAL (PRIMARY) HYPERTENSION Status: Chronic Qualifiers: Hypertension type: essential hypertension Qualified Code(s): I10 - Essential (primary) hypertension - Plan This patient is a 75-year-old male who is generally quite healthy. He presented with shortness of breath, fever, chills that started around July 02. He has tested positive for Covid. COVID-19 pneumonia: He has been on the window of remdesivir. Continue Decadron, vitamin supplementation. Repeat inflammatory markers on 07/14/2020 reveal his CRP is down from 30-18 but his D-dimer is up over 3. We will increase his Lovenox to 40 mg twice daily. Patient had been receiving p.o. prednisone due to a vertigo issue prior to falling ill with the Covid. This accounted for his initial leukocytosis. No evidence of bacterial infection. Antibiotics discontinued on 07/14/2020. Acute hypoxic respiratory failure: Patient is on fairly significant high flow nasal cannula oxygen supplementation. At rest his sats remained in the upper 90s. With talking his sats dropped into the 80s. Bronchodilators. Long discussion with the patient on 07/14/2020 regarding the likely prolonged course related to his hypoxia. His CT scan of the chest shows extensive inflammatory changes. Hypertension: Continue with his Catapres patch. Hyperlipidemia: Continue with atorvastatin at his home dose. SERGIO on CKD stage III: Patient has had some hydration and his GFR is actually above his baseline. DVT prophylaxis: Continue with Lovenox at escalated dose due to Covid and elevated D-dimer. PUD prophylaxis: PPI given the fact that he is on the steroids.
[2020-07-15] MEDS: Aspirin 81 mg Enteric Coated Tablet PO SCH (20:19)
[2020-07-15] MEDS: Atorvastatin Calcium 40 MG TAB PO SCH (20:19)
[2020-07-15] MEDS: hydrALAZINE 20 MG/ML VIAL SLOW IVP PRN (21:48)
[2020-07-16] MEDS: hydrALAZINE 20 MG/ML VIAL SLOW IVP PRN (03:59)
[2020-07-16 05:21] LABS: #Lymphocytes 0.3 thou/uL (1.20-3.40); #Monocytes 0.2 thou/uL (0.11-0.59); #Neutrophils 9.5 thou/uL (1.40-6.50); %Eosinophils 0.1 % (0.0-10.0); %Lymphocytes 3.3 % (21.0-51.0); %Monocytes 2.2 % (0.0-10.0); %Neutrophils 94.4 % (42.0-75.0); Hemoglobin 13.3 g/dL (14.0-18.0); Mean Corpuscular HGB CONC 32.7 g/dL (32.0-36.0); Mean Corpuscular Hemoglobin 29.5 pg (27.0-31.0); Mean Corpuscular Volume 90.2 fL (78.0-98.0); Mean Platelet Volume 8.6 fL (7.4-10.4); Platelet Count 157 thou/uL (130-400); RBC Distribution Width 11.9 % (11.5-14.5); Red Blood Cell (RBC) Count 4.52 mill/uL (4.70-6.10)
[2020-07-16 05:43] LABS: Anion Gap 15 mmol/L (10-20); BUN (Urea Nitrogen) 35 mg/dL (8.4-25.7); Calc. Creatinine Clearance 66 mL/min (70-130); Calcium 8.4 mg/dL (7.8-10.44); Carbon Dioxide 23 mmol/L (23-31); Chloride 102 mmol/L (98-107); Glucose 93 mg/dL (83-110); Potassium 4.6 mmol/L (3.5-5.1); Sodium 135 mmol/L (136-145)
[2020-07-16] MEDS: Enoxaparin Sodium 40 MG/0.4 ML SYRINGE SC SCH ×2 (09:10→20:35)
[2020-07-16] MEDS: Cholecalciferol 1,000 UNITS (25 MCG) TAB PO SCH (09:10)
[2020-07-16] MEDS: Zinc Sulfate 220 MG CAP PO SCH (09:10)
[2020-07-16] MEDS: Multivit, Therapeutic 1 TAB PO SCH (09:10)
[2020-07-16] MEDS: Dexamethasone 4 MG TAB PO SCH (09:11)
[2020-07-16] MEDS: Ascorbic Acid 500 mg Chewable Tablet PO SCH (09:16)
--- NOTE | 2020-07-16 11:37 | PQF ---
CLINICAL DOCUMENTATION CLARIFICATION FORM: Dear Dr. KEYON MARMOLEJO Date / Time: 07-16-19 Please exercise your independent, professional judgment in responding to the clarification form. Clinical indicators are provided on the bottom of this form for your review. Please check appropriate box(es): [ ] Sepsis due to: [ ] Severe sepsis with associated acute organ dysfunction: [ ] Acute Respiratory Failure [ ] Acute Kidney [ ] Additional/Other: please specify: [ ] Localized infection without sepsis [x ] Other diagnosis covid [ ] Unable to determine In addition, please specify: Present on Admission (POA): [x ] Yes [ ] No [ ] Unable to determine For continuity of documentation, please document condition throughout progress notes and discharge summary. Thank You. To be completed by CDI/Coding staff for physician review: CLINICAL INDICATORS - SIGNS / SYMPTOMS / LABS / RESULTS AND LOCATION IN MR: H&P: 07-12-20: COVID PNEUMONIA, HYPOXIC RESPIRATORY FAILURE, HTN, SERGIO, DEHYDRATION WBC: 07-12-20: 12.2 07-13-20: 13.4 BANDS: 07-13-20: 19% LACTIC ACID: 07-12-20: 3.2 TEMP: 07-13-20: 100.7 RISK FACTORS / RESULTS AND LOCATION IN MR: H&P: 07-12-20: COVID PNEUMONIA, HYPOXIC RESPIRATORY FAILURE, HTN, SERGIO, DEHYDRATION TREATMENTS / RESULTS AND LOCATION IN MR: ER NOTES 07-12-20: NS IVF, DEXAMETHASONE INJ, MAR: DECADRON CDS Signature: Antonella Correia Phone #: [phone] Date: 07-16-20 This is a permanent part of the Medical Record [facility]
[2020-07-16] MEDS: Acetaminophen 325 MG TAB PO PRN (12:29)
--- NOTE | 2020-07-16 13:52 | PDOC.HOSPP ---
- Subjective Encounter Date: 07/16/20 Subjective: Patient reports he continues to feel some better. He does get a little anxious at times being cooped up in the room. - Objective Vital Signs & Weight: Vital Signs (12 hours) Temp Pulse Resp BP Pulse Ox 07/16/20 12:00 100.5 F H 61 20 149/70 H 100 07/16/20 09:15 99.8 F H 62 24 H 150/69 H 97 07/16/20 03:45 98.5 F 55 L 20 159/68 H 96 Weight Weight 182 lb 14.4 oz I&O: 07/15/20 07/16/20 07/17/20 06:59 06:59 06:59 Intake Total 480 1250 Output Total 1000 1600 Balance -520 -350 Result Diagrams: 07/16/20 04:36 07/16/20 04:36 Hospitalist ROS - Medication Medications: Active Medications Generic Name Dose Route Start Last Admin Trade Name Freq PRN Reason Stop Dose Admin Acetaminophen 650 mg 07/12/20 08:57 07/16/20 12:29 Acetaminophen 325 Mg Tab PO 650 mg Q4H PRN Administration Headache/Fever/Mild Pain (1-3) Ascorbic Acid 1,000 mg 07/13/20 09:00 07/16/20 09:16 Ascorbic Acid 500 Mg Chewable Tablet PO 1,000 mg DAILY CM Administration Aspirin 81 mg 07/12/20 21:00 07/15/20 20:19 Aspirin 81 Mg Enteric Coated Tablet PO 81 mg HS CM Administration Atorvastatin Calcium 40 mg 07/12/20 21:00 07/15/20 20:19 Atorvastatin Calcium 40 Mg Tab PO 40 mg QPM CM Administration Cholecalciferol 2,000 units 07/13/20 09:00 07/16/20 09:10 Cholecalciferol 1,000 Units (25 Mcg) Tab PO 2,000 units DAILY CM Administration Clonidine 0.1 mg 07/13/20 03:00 07/13/20 02:07 Clonidine 0.1mg/24 Hour Patch TD 0.1 mg Q7D CM Administration Dexamethasone 6 mg 07/13/20 08:00 07/16/20 09:11 Dexamethasone 4 Mg Tab PO 6 mg QAM-WM CM Administration Enoxaparin Sodium 40 mg 07/14/20 21:00 07/16/20 09:10 Enoxaparin Sodium 40 Mg/0.4 Ml Syringe SC 40 mg BID CM Administration Hydralazine HCl 10 mg 07/12/20 14:18 07/16/20 03:59 Hydralazine 20 Mg/Ml Vial SLOW IVP 10 mg Q4H PRN Administration SBP>150 Melatonin 3 mg 07/14/20 01:37 07/14/20 20:55 Melatonin 3 Mg Tab PO 3 mg HSPRN PRN Administration Insomnia Multivitamins 1 tab 07/13/20 09:00 07/16/20 09:10 Multivit, Therapeutic 1 Tab PO 1 tab QAM CM Administration Pantoprazole Sodium 40 mg 07/15/20 09:00 07/16/20 09:10 Pantoprazole 40 Mg Tab PO 40 mg DAILY CM Administration Throat Lozenges 1 med 07/14/20 01:37 07/14/20 10:09 Cepastat Lozenges 1 Med PO 1 med Q2H PRN Administration Sore Throat Zinc Sulfate 220 mg 07/13/20 09:00 07/16/20 09:10 Zinc Sulfate 220 Mg Cap PO 220 mg DAILY CM Administration - Exam General Appearance: NAD, awake alert Heart: RRR, no murmur, no gallops, no rubs, normal peripheral pulses Respiratory: no wheezes, no ronchi Respiratory - other findings: Basilar rales. Right greater than left. Extremities: no cyanosis, no clubbing, no edema Skin: normal turgor Neurological: no new deficit Musculoskeletal: normal tone, normal strength, no muscle wasting Psychiatric: normal affect, normal behavior, A&O x 3 Hosp A/P (1) Acute respiratory failure with hypoxia Code(s): J96.01 - ACUTE RESPIRATORY FAILURE WITH HYPOXIA Status: Acute (2) Pneumonia due to COVID-19 virus Code(s): U07.1 - COVID-19; J12.82 - Status: Acute (3) CKD (chronic kidney disease), stage III Code(s): N18.3 - CHRONIC KIDNEY DISEASE, STAGE 3 (MODERATE) * DO NOT USE * Status: Chronic (4) GERD (gastroesophageal reflux disease) Code(s): K21.9 - GASTRO-ESOPHAGEAL REFLUX DISEASE WITHOUT ESOPHAGITIS Status: Chronic Qualifiers: Esophagitis presence: without esophagitis Qualified Code(s): K21.9 - Gastro-esophageal reflux disease without esophagitis (5) HLD (hyperlipidemia) Code(s): E78.5 - HYPERLIPIDEMIA, UNSPECIFIED Status: Chronic Qualifiers: Hyperlipidemia type: unspecified Qualified Code(s): E78.5 - Hyperlipidemia, unspecified (6) HTN (hypertension) Code(s): I10 - ESSENTIAL (PRIMARY) HYPERTENSION Status: Chronic Qualifiers: Hypertension type: essential hypertension Qualified Code(s): I10 - Essential (primary) hypertension - Plan This patient is a 75-year-old male who is generally quite healthy. He presented with shortness of breath, fever, chills that started around July 02. He has tested positive for Covid. COVID-19 pneumonia: He has been on the window of remdesivir. Continue Decadron, vitamin supplementation. Repeat inflammatory markers on 07/14/2020 reveal his CRP is down from 30-18 but his D-dimer is up over 3. We will increase his Lovenox to 40 mg twice daily. Patient had been receiving p.o. prednisone due to a vertigo issue prior to falling ill with the Covid. This accounted for his initial leukocytosis. No evidence of bacterial infection. Antibiotics discontinued on 07/14/2020. Acute hypoxic respiratory failure: Patient is on fairly significant high flow nasal cannula oxygen supplementation. At rest his sats remained in the upper 90s. With talking his sats dropped into the 80s. Bronchodilators. Long discussion with the patient on 07/14/2020 regarding the likely prolonged course related to his hypoxia. His CT scan of the chest shows extensive inflammatory changes. Hypertension: Continue with his Catapres patch. On 07/16/2020 the patient indicated that he typically has a film covering over the Catapres patch at home. He reports that it tends to work better with that. That was initiated on 07/16/2020. We will continue to monitor. Hyperlipidemia: Continue with atorvastatin at his home dose. SERGIO on CKD stage III: Patient has had some hydration and his GFR is actually above his baseline. DVT prophylaxis: Continue with Lovenox at escalated dose due to Covid and elevated D-dimer. PUD prophylaxis: PPI given the fact that he is on the steroids.
[2020-07-16] MEDS: Aspirin 81 mg Enteric Coated Tablet PO SCH (20:35)
[2020-07-16] MEDS: ALPRAZolam 0.25 MG TAB PO PRN (20:35)
[2020-07-16] MEDS: Atorvastatin Calcium 40 MG TAB PO SCH (20:35)
[2020-07-17] MEDS: Melatonin 3 MG TAB PO PRN (01:56)
[2020-07-17] MEDS: Acetaminophen 325 MG TAB PO PRN ×3 (01:56→20:47)
[2020-07-17] MEDS: Zinc Sulfate 220 MG CAP PO SCH (08:14)
[2020-07-17] MEDS: Multivit, Therapeutic 1 TAB PO SCH (08:14)
[2020-07-17] MEDS: Ascorbic Acid 500 mg Chewable Tablet PO SCH (08:15)
[2020-07-17] MEDS: Cholecalciferol 1,000 UNITS (25 MCG) TAB PO SCH (08:15)
[2020-07-17] MEDS: Enoxaparin Sodium 40 MG/0.4 ML SYRINGE SC SCH ×2 (08:15→20:46)
[2020-07-17] MEDS: Dexamethasone 4 MG TAB PO SCH (08:15)
--- NOTE | 2020-07-17 16:47 | PDOC.HOSPP ---
- Subjective Encounter Date: 07/17/20 Subjective: Continues to feel better. Breathing ok. - Objective Vital Signs & Weight: Vital Signs (12 hours) Temp Pulse Resp BP Pulse Ox 07/17/20 11:50 99.3 F 61 20 170/69 H 96 07/17/20 08:25 99.4 F 69 32 H 147/67 H 92 L Weight Weight 183 lb 3.2 oz I&O: 07/16/20 07/17/20 07/18/20 06:59 06:59 06:59 Intake Total 1250 Output Total 1600 275 Balance -350 -275 Result Diagrams: 07/16/20 04:36 07/16/20 04:36 Hospitalist ROS - Medication Medications: Active Medications Generic Name Dose Route Start Last Admin Trade Name Freq PRN Reason Stop Dose Admin Acetaminophen 650 mg 07/12/20 08:57 07/17/20 08:33 Acetaminophen 325 Mg Tab PO 650 mg Q4H PRN Administration Headache/Fever/Mild Pain (1-3) Alprazolam 0.25 mg 07/16/20 12:12 07/16/20 20:35 Alprazolam 0.25 Mg Tab PO 0.25 mg TIDPRN PRN Administration Anxiety Ascorbic Acid 1,000 mg 07/13/20 09:00 07/17/20 08:15 Ascorbic Acid 500 Mg Chewable Tablet PO 1,000 mg DAILY CM Administration Aspirin 81 mg 07/12/20 21:00 07/16/20 20:35 Aspirin 81 Mg Enteric Coated Tablet PO 81 mg HS CM Administration Atorvastatin Calcium 40 mg 07/12/20 21:00 07/16/20 20:35 Atorvastatin Calcium 40 Mg Tab PO 40 mg QPM CM Administration Cholecalciferol 2,000 units 07/13/20 09:00 07/17/20 08:15 Cholecalciferol 1,000 Units (25 Mcg) Tab PO 2,000 units DAILY CM Administration Clonidine 0.1 mg 07/13/20 03:00 07/13/20 02:07 Clonidine 0.1mg/24 Hour Patch TD 0.1 mg Q7D CM Administration Dexamethasone 6 mg 07/13/20 08:00 07/17/20 08:15 Dexamethasone 4 Mg Tab PO 6 mg QAM-WM CM Administration Enoxaparin Sodium 40 mg 07/14/20 21:00 07/17/20 08:15 Enoxaparin Sodium 40 Mg/0.4 Ml Syringe SC 40 mg BID CM Administration Hydralazine HCl 10 mg 07/12/20 14:18 07/16/20 03:59 Hydralazine 20 Mg/Ml Vial SLOW IVP 10 mg Q4H PRN Administration SBP>150 Melatonin 3 mg 07/14/20 01:37 07/17/20 01:56 Melatonin 3 Mg Tab PO 3 mg HSPRN PRN Administration Insomnia Multivitamins 1 tab 07/13/20 09:00 07/17/20 08:14 Multivit, Therapeutic 1 Tab PO 1 tab QAM CM Administration Pantoprazole Sodium 40 mg 07/15/20 09:00 07/17/20 08:15 Pantoprazole 40 Mg Tab PO 40 mg DAILY CM Administration Throat Lozenges 1 med 07/14/20 01:37 07/14/20 10:09 Cepastat Lozenges 1 Med PO 1 med Q2H PRN Administration Sore Throat Zinc Sulfate 220 mg 07/13/20 09:00 07/17/20 08:14 Zinc Sulfate 220 Mg Cap PO 220 mg DAILY CM Administration - Exam General Appearance: NAD, awake alert Heart: RRR, no murmur, no gallops, no rubs, normal peripheral pulses Respiratory: no wheezes, no ronchi, rales ([place]) Gastrointestinal: soft, non-tender, non-distended, normal bowel sounds, no palpable masses, no hepatomegaly, no splenomegaly, no bruit Extremities: no cyanosis, no clubbing, no edema Skin: normal turgor Neurological: no focal deficits Musculoskeletal: normal tone, normal strength, no muscle wasting Psychiatric: normal affect, normal behavior, A&O x 3 Hosp A/P (1) Acute respiratory failure with hypoxia Code(s): J96.01 - ACUTE RESPIRATORY FAILURE WITH HYPOXIA Status: Acute (2) Pneumonia due to COVID-19 virus Code(s): U07.1 - COVID-19; J12.82 - PNEUMONIA DUE TO CORONAVIRUS DISEASE 2019 Status: Acute (3) CKD (chronic kidney disease), stage III Code(s): N18.3 - CHRONIC KIDNEY DISEASE, STAGE 3 (MODERATE) * DO NOT USE * Status: Chronic (4) GERD (gastroesophageal reflux disease) Code(s): K21.9 - GASTRO-ESOPHAGEAL REFLUX DISEASE WITHOUT ESOPHAGITIS Status: Chronic Qualifiers: Esophagitis presence: without esophagitis Qualified Code(s): K21.9 - Gastro-esophageal reflux disease without esophagitis (5) HLD (hyperlipidemia) Code(s): E78.5 - HYPERLIPIDEMIA, UNSPECIFIED Status: Chronic Qualifiers: Hyperlipidemia type: unspecified Qualified Code(s): E78.5 - Hyperlipidemia, unspecified (6) HTN (hypertension) Code(s): I10 - ESSENTIAL (PRIMARY) HYPERTENSION Status: Chronic Qualifiers: Hypertension type: essential hypertension Qualified Code(s): I10 - Essential (primary) hypertension - Plan This patient is a 75-year-old male who is generally quite healthy. He presented with shortness of breath, fever, chills that started around July 02. He has tested positive for Covid. COVID-19 pneumonia: He has been on the window of remdesivir. Continue Decadron, vitamin supplementation. Repeat inflammatory markers on 07/14/2020 reveal his CRP is down from 30-18 but his D-dimer is up over 3. We will increase his Lovenox to 40 mg twice daily. Patient had been receiving p.o. prednisone due to a vertigo issue prior to falling ill with the Covid. This accounted for his initial leukocytosis. No evidence of bacterial infection. Antibiotics discontinued on 07/14/2020. Acute hypoxic respiratory failure: Patient is on fairly significant high flow nasal cannula oxygen supplementation. At rest his sats remained in the upper 90s. With talking his sats dropped into the 80s. Bronchodilators. Long discussion with the patient on 07/14/2020 regarding the likely prolonged course related to his hypoxia. His CT scan of the chest shows extensive inflammatory changes. 07/17/20 tapered down from 60 LPM to 45 LPM HFNC. Hypertension: Continue with his Catapres patch. On 07/16/2020 the patient indicated that he typically has a film covering over the Catapres patch at home. He reports that it tends to work better with that. That was initiated on 07/16/2020. We will continue to monitor. Hyperlipidemia: Continue with atorvastatin at his home dose. SERGIO on CKD stage III: Patient has had some hydration and his GFR is actually above his baseline. DVT prophylaxis: Continue with Lovenox at escalated dose due to Covid and elevated D-dimer. PUD prophylaxis: PPI given the fact that he is on the steroids.
[2020-07-17] MEDS: Aspirin 81 mg Enteric Coated Tablet PO SCH (20:46)
[2020-07-17] MEDS: Atorvastatin Calcium 40 MG TAB PO SCH (20:46)
[2020-07-17] MEDS: ALPRAZolam 0.25 MG TAB PO PRN (20:47)
[2020-07-18] MEDS: Cholecalciferol 1,000 UNITS (25 MCG) TAB PO SCH (08:33)
[2020-07-18] MEDS: Ascorbic Acid 500 mg Chewable Tablet PO SCH (08:33)
[2020-07-18] MEDS: Dexamethasone 4 MG TAB PO SCH (08:33)
[2020-07-18] MEDS: Enoxaparin Sodium 40 MG/0.4 ML SYRINGE SC SCH ×2 (08:33→20:29)
[2020-07-18] MEDS: Zinc Sulfate 220 MG CAP PO SCH (08:34)
[2020-07-18] MEDS: Multivit, Therapeutic 1 TAB PO SCH (08:34)
--- NOTE | 2020-07-18 16:48 | PDOC.HOSPP ---
- Subjective Encounter Date: 07/18/20 Subjective: Patient reports he continues to feel better. Says this is the best he has felt. - Objective Vital Signs & Weight: Vital Signs (12 hours) Temp Pulse Resp BP Pulse Ox 07/18/20 15:35 97.8 F 66 126/61 99 07/18/20 08:48 64 24 H 149/69 H 91 L Weight Weight 183 lb 3.2 oz I&O: 07/17/20 07/18/20 07/19/20 06:59 06:59 06:59 Intake Total 360 600 Output Total 275 250 Balance -275 110 600 Result Diagrams: 07/16/20 04:36 07/16/20 04:36 Hospitalist ROS - Medication Medications: Active Medications Generic Name Dose Route Start Last Admin Trade Name Freq PRN Reason Stop Dose Admin Acetaminophen 650 mg 07/12/20 08:57 07/17/20 20:47 Acetaminophen 325 Mg Tab PO 650 mg Q4H PRN Administration Headache/Fever/Mild Pain (1-3) Alprazolam 0.25 mg 07/16/20 12:12 07/17/20 20:47 Alprazolam 0.25 Mg Tab PO 0.25 mg TIDPRN PRN Administration Anxiety Ascorbic Acid 1,000 mg 07/13/20 09:00 07/18/20 08:33 Ascorbic Acid 500 Mg Chewable Tablet PO 1,000 mg DAILY CM Administration Aspirin 81 mg 07/12/20 21:00 07/17/20 20:46 Aspirin 81 Mg Enteric Coated Tablet PO 81 mg HS CM Administration Atorvastatin Calcium 40 mg 07/12/20 21:00 07/17/20 20:46 Atorvastatin Calcium 40 Mg Tab PO 40 mg QPM CM Administration Cholecalciferol 2,000 units 07/13/20 09:00 07/18/20 08:33 Cholecalciferol 1,000 Units (25 Mcg) Tab PO 2,000 units DAILY CM Administration Clonidine 0.1 mg 07/13/20 03:00 07/13/20 02:07 Clonidine 0.1mg/24 Hour Patch TD 0.1 mg Q7D CM Administration Dexamethasone 6 mg 07/13/20 08:00 07/18/20 08:33 Dexamethasone 4 Mg Tab PO 6 mg QAM-WM CM Administration Enoxaparin Sodium 40 mg 07/14/20 21:00 07/18/20 08:33 Enoxaparin Sodium 40 Mg/0.4 Ml Syringe SC 40 mg BID CM Administration Hydralazine HCl 10 mg 07/12/20 14:18 07/16/20 03:59 Hydralazine 20 Mg/Ml Vial SLOW IVP 10 mg Q4H PRN Administration SBP>150 Melatonin 3 mg 07/14/20 01:37 07/17/20 01:56 Melatonin 3 Mg Tab PO 3 mg HSPRN PRN Administration Insomnia Multivitamins 1 tab 07/13/20 09:00 07/18/20 08:34 Multivit, Therapeutic 1 Tab PO 1 tab QAM CM Administration Pantoprazole Sodium 40 mg 07/15/20 09:00 07/18/20 08:34 Pantoprazole 40 Mg Tab PO 40 mg DAILY CM Administration Throat Lozenges 1 med 07/14/20 01:37 07/14/20 10:09 Cepastat Lozenges 1 Med PO 1 med Q2H PRN Administration Sore Throat Zinc Sulfate 220 mg 07/13/20 09:00 07/18/20 08:34 Zinc Sulfate 220 Mg Cap PO 220 mg DAILY CM Administration - Exam General Appearance: NAD, awake alert General - other findings: High flow nasal cannula Neck: supple, symmetric, no JVD, no thyromegaly, no lymphadenopathy, no carotid bruit Heart: RRR, no murmur, no gallops, no rubs Respiratory: no wheezes, no ronchi, rales (Scattered rales. Some clear with cough.) Gastrointestinal: soft, non-tender, non-distended, normal bowel sounds, no palpable masses, no hepatomegaly, no splenomegaly, no bruit Extremities: no cyanosis, no clubbing, no edema Skin: normal turgor Musculoskeletal: normal tone, normal strength, no muscle wasting Psychiatric: normal affect, normal behavior, A&O x 3 Hosp A/P (1) Acute respiratory failure with hypoxia Code(s): J96.01 - ACUTE RESPIRATORY FAILURE WITH HYPOXIA Status: Acute (2) Pneumonia due to COVID-19 virus Code(s): U07.1 - COVID-19; J12.82 - PNEUMONIA DUE TO CORONAVIRUS DISEASE 2019 Status: Acute (3) CKD (chronic kidney disease), stage III Code(s): N18.3 - CHRONIC KIDNEY DISEASE, STAGE 3 (MODERATE) * DO NOT USE * Status: Chronic (4) GERD (gastroesophageal reflux disease) Code(s): K21.9 - GASTRO-ESOPHAGEAL REFLUX DISEASE WITHOUT ESOPHAGITIS Status: Chronic Qualifiers: Esophagitis presence: without esophagitis Qualified Code(s): K21.9 - Gastro-esophageal reflux disease without esophagitis (5) HLD (hyperlipidemia) Code(s): E78.5 - HYPERLIPIDEMIA, UNSPECIFIED Status: Chronic Qualifiers: Hyperlipidemia type: unspecified Qualified Code(s): E78.5 - Hyperlipidemia, unspecified (6) HTN (hypertension) Code(s): I10 - ESSENTIAL (PRIMARY) HYPERTENSION Status: Chronic Qualifiers: Hypertension type: essential hypertension Qualified Code(s): I10 - Essential (primary) hypertension - Plan This patient is a 75-year-old male who is generally quite healthy. He presented with shortness of breath, fever, chills that started around July 02. He has tested positive for Covid. COVID-19 pneumonia: He has been on the window of remdesivir. Continue Decadron, vitamin supplementation. Repeat inflammatory markers on 07/14/2020 reveal his CRP is down from 30-18 but his D-dimer is up over 3. We will increase his Lovenox to 40 mg twice daily. Patient had been receiving p.o. prednisone due to a vertigo issue prior to falling ill with the Covid. This accounted for his initial leukocytosis. No evidence of bacterial infection. Antibiotics discontinued on 07/14/2020. Acute hypoxic respiratory failure: Patient is on fairly significant high flow nasal cannula oxygen supplementation. At rest his sats remained in the upper 90s. With talking his sats dropped into the 80s. Bronchodilators. Long discussion with the patient on 07/14/2020 regarding the likely prolonged course related to his hypoxia. His CT scan of the chest shows extensive inflammatory changes. 07/17/20 tapered down from 60 LPM to 45 LPM HFNC. 07/18/2020 encourage the patient to increase his activity within the room. Hypertension: Continue with his Catapres patch. On 07/16/2020 the patient indicated that he typically has a film covering over the Catapres patch at home. He reports that it tends to work better with that. That was initiated on 07/16/2020. His blood pressure did improve with that Hyperlipidemia: Continue with atorvastatin at his home dose. SERGIO on CKD stage III: On presentation his GFR was below baseline. Patient has had some hydration and his GFR is actually above his baseline. DVT prophylaxis: Continue with Lovenox at escalated dose due to Covid and elevated D-dimer. PUD prophylaxis: PPI given the fact that he is on the steroids.
[2020-07-18] MEDS: Atorvastatin Calcium 40 MG TAB PO SCH (20:28)
[2020-07-18] MEDS: ALPRAZolam 0.25 MG TAB PO PRN (20:29)
[2020-07-18] MEDS: Melatonin 3 MG TAB PO PRN (20:29)
[2020-07-18] MEDS: Aspirin 81 mg Enteric Coated Tablet PO SCH (20:29)
[2020-07-19 05:19] LABS: #Basophils 0.1 thou/uL (0.0-0.2); #Lymphocytes 0.2 thou/uL (1.20-3.40); #Monocytes 0.2 thou/uL (0.11-0.59); #Neutrophils 7.8 thou/uL (1.40-6.50); %Basophils 0.9 % (0.0-1.0); %Eosinophils 0.2 % (0.0-10.0); %Lymphocytes 1.8 % (21.0-51.0); %Monocytes 2.6 % (0.0-10.0); %Neutrophils 94.5 % (42.0-75.0); Hemoglobin 13.4 g/dL (14.0-18.0); Mean Corpuscular HGB CONC 32.6 g/dL (32.0-36.0); Mean Corpuscular Hemoglobin 29.8 pg (27.0-31.0); Mean Corpuscular Volume 91.5 fL (78.0-98.0); Platelet Count 199 thou/uL (130-400); RBC Distribution Width 11.7 % (11.5-14.5); Red Blood Cell (RBC) Count 4.48 mill/uL (4.70-6.10); White Blood Cell (WBC) Count 8.2 thou/uL (4.8-10.8)
[2020-07-19 05:41] LABS: Anion Gap 15 mmol/L (10-20); BUN (Urea Nitrogen) 35 mg/dL (8.4-25.7); CRP (Inflammatory) 19.06 mg/dL (= or < 0.5); Calc. Creatinine Clearance 57 mL/min (70-130); Calcium 8.1 mg/dL (7.8-10.44); Carbon Dioxide 25 mmol/L (23-31); Chloride 100 mmol/L (98-107); Glucose 96 mg/dL (83-110); Potassium 5.3 mmol/L (3.5-5.1); Sodium 135 mmol/L (136-145)
[2020-07-19] MEDS: Enoxaparin Sodium 40 MG/0.4 ML SYRINGE SC SCH ×2 (08:06→20:28)
[2020-07-19] MEDS: Zinc Sulfate 220 MG CAP PO SCH (08:06)
[2020-07-19] MEDS: Cholecalciferol 1,000 UNITS (25 MCG) TAB PO SCH (08:06)
[2020-07-19] MEDS: Dexamethasone 4 MG TAB PO SCH (08:06)
[2020-07-19] MEDS: Multivit, Therapeutic 1 TAB PO SCH (08:06)
[2020-07-19] MEDS: Ascorbic Acid 500 mg Chewable Tablet PO SCH (08:07)
--- NOTE | 2020-07-19 10:28 | ULT ---
EXAM: Bilateral lower extremity venous Doppler US HISTORY: bilateral lower extremity edema and pain, positive d-dimer FINDINGS: Grayscale, color-flow, Doppler evaluation, spectral analysis of the bilateral lower extremities venou s structures is performed with 2-D imaging. The bilateral common femoral, superficial femoral, popliteal, posterior tibial, proximal greater saphenous and profunda femoral veins are imaged. There is normal luminal compressibility, flow, and augmentation in the visualized deep venous structu res of the bilateral lower extremities. IMPRESSION: No evidence of a deep vein thrombosis in either lower extremity.
--- NOTE | 2020-07-19 14:50 | PDOC.HOSPP ---
- Subjective Encounter Date: 07/19/20 Subjective: Patient is feeling well today. Has no complaints. Breathing comfortably. He was able to get up and mobilize around the room well yesterday. Denies any shortness of breath with activity. - Objective Vital Signs & Weight: Vital Signs (12 hours) Temp Pulse Resp BP Pulse Ox 07/19/20 11:05 99 F 63 32 H 145/69 H 94 L 07/19/20 08:12 97.6 F 59 L 22 H 123/58 L 90 L 07/19/20 04:00 98.5 F 50 L 22 H 126/60 93 L Weight Weight 183 lb 6.4 oz I&O: 07/18/20 07/19/20 07/20/20 06:59 06:59 06:59 Intake Total 360 840 480 Output Total 250 600 600 Balance 110 240 -120 Result Diagrams: 07/19/20 04:28 07/19/20 04:28 Hospitalist ROS - Medication Medications: Active Medications Generic Name Dose Route Start Last Admin Trade Name Freq PRN Reason Stop Dose Admin Acetaminophen 650 mg 07/12/20 08:57 07/17/20 20:47 Acetaminophen 325 Mg Tab PO 650 mg Q4H PRN Administration Headache/Fever/Mild Pain (1-3) Alprazolam 0.25 mg 07/16/20 12:12 07/18/20 20:29 Alprazolam 0.25 Mg Tab PO 0.25 mg TIDPRN PRN Administration Anxiety Ascorbic Acid 1,000 mg 07/13/20 09:00 07/19/20 08:07 Ascorbic Acid 500 Mg Chewable Tablet PO 1,000 mg DAILY CM Administration Aspirin 81 mg 07/12/20 21:00 07/18/20 20:29 Aspirin 81 Mg Enteric Coated Tablet PO 81 mg HS CM Administration Atorvastatin Calcium 40 mg 07/12/20 21:00 07/18/20 20:28 Atorvastatin Calcium 40 Mg Tab PO 40 mg QPM CM Administration Cholecalciferol 2,000 units 07/13/20 09:00 07/19/20 08:06 Cholecalciferol 1,000 Units (25 Mcg) Tab PO 2,000 units DAILY CM Administration Clonidine 0.1 mg 07/13/20 03:00 07/13/20 02:07 Clonidine 0.1mg/24 Hour Patch TD 0.1 mg Q7D CM Administration Dexamethasone 6 mg 07/13/20 08:00 07/19/20 08:06 Dexamethasone 4 Mg Tab PO 6 mg QAM-WM CM Administration Enoxaparin Sodium 40 mg 07/14/20 21:00 07/19/20 08:06 Enoxaparin Sodium 40 Mg/0.4 Ml Syringe SC 40 mg BID CM Administration Hydralazine HCl 10 mg 07/12/20 14:18 07/16/20 03:59 Hydralazine 20 Mg/Ml Vial SLOW IVP 10 mg Q4H PRN Administration SBP>150 Melatonin 3 mg 07/14/20 01:37 07/18/20 20:29 Melatonin 3 Mg Tab PO 3 mg HSPRN PRN Administration Insomnia Multivitamins 1 tab 07/13/20 09:00 07/19/20 08:06 Multivit, Therapeutic 1 Tab PO 1 tab QAM CM Administration Pantoprazole Sodium 40 mg 07/15/20 09:00 07/19/20 08:06 Pantoprazole 40 Mg Tab PO 40 mg DAILY CM Administration Throat Lozenges 1 med 07/14/20 01:37 07/14/20 10:09 Cepastat Lozenges 1 Med PO 1 med Q2H PRN Administration Sore Throat Zinc Sulfate 220 mg 07/13/20 09:00 07/19/20 08:06 Zinc Sulfate 220 Mg Cap PO 220 mg DAILY CM Administration - Exam General Appearance: NAD, awake alert Heart: RRR, no murmur, no gallops, no rubs, normal peripheral pulses Respiratory: no wheezes, no ronchi Respiratory - other findings: Subtle bibasilar rales. Improved. Gastrointestinal: soft, non-tender, non-distended, normal bowel sounds, no palpable masses, no hepatomegaly, no splenomegaly, no bruit Extremities: no cyanosis, no clubbing, no edema Skin: normal turgor Neurological: no focal deficits Musculoskeletal: normal tone, normal strength, no muscle wasting Psychiatric: normal affect, normal behavior, A&O x 3 Hosp A/P (1) Acute respiratory failure with hypoxia Code(s): J96.01 - ACUTE RESPIRATORY FAILURE WITH HYPOXIA Status: Acute (2) Pneumonia due to COVID-19 virus Code(s): U07.1 - COVID-19; J12.82 - PNEUMONIA DUE TO CORONAVIRUS DISEASE 2019 Status: Acute (3) CKD (chronic kidney disease), stage III Code(s): N18.3 - CHRONIC KIDNEY DISEASE, STAGE 3 (MODERATE) * DO NOT USE * Status: Chronic (4) GERD (gastroesophageal reflux disease) Code(s): K21.9 - GASTRO-ESOPHAGEAL REFLUX DISEASE WITHOUT ESOPHAGITIS Status: Chronic Qualifiers: Esophagitis presence: without esophagitis Qualified Code(s): K21.9 - Gastro-esophageal reflux disease without esophagitis (5) HLD (hyperlipidemia) Code(s): E78.5 - HYPERLIPIDEMIA, UNSPECIFIED Status: Chronic Qualifiers: Hyperlipidemia type: unspecified Qualified Code(s): E78.5 - Hyperlipidemia, unspecified (6) HTN (hypertension) Code(s): I10 - ESSENTIAL (PRIMARY) HYPERTENSION Status: Chronic Qualifiers: Hypertension type: essential hypertension Qualified Code(s): I10 - Essential (primary) hypertension - Plan This patient is a 75-year-old male who is generally quite healthy. He presented with shortness of breath, fever, chills that started around July 02. He has tested positive for Covid. COVID-19 pneumonia: He has been on the window of remdesivir. Continue Decadron, vitamin supplementation. Repeat inflammatory markers on 07/14/2020 reveal his CRP is down from 30-18 but his D-dimer is up over 3. We will increase his Lovenox to 40 mg twice daily. Patient had been receiving p.o. prednisone due to a vertigo issue prior to falling ill with the Covid. This accounted for his initial leukocytosis. No evidence of bacterial infection. Antibiotics discontinued on 07/14/2020. Elevated D-dimer up to 20 on 07/19/2020 prompted lower extremity Doppler. This was negative. Continuing with the elevated dose of Lovenox. Acute hypoxic respiratory failure: Patient is on fairly significant high flow nasal cannula oxygen supplementation. At rest his sats remained in the upper 90s. With talking his sats dropped into the 80s. Bronchodilators. Long discussion with the patient on 07/14/2020 regarding the likely prolonged course related to his hypoxia. His CT scan of the chest shows extensive inflammatory changes. 07/17/20 tapered down from 60 LPM to 45 LPM HFNC. 07/18/2020 encourage the patient to increase his activity within the room. He was able to do this quite well. Did not have significant shortness of breath. Continue to encourage activity. Hypertension: Continue with his Catapres patch. On 07/16/2020 the patient indicated that he typically has a film covering over the Catapres patch at home. He reports that it tends to work better with that. That was initiated on 07/16/2020. His blood pressure did improve with that Hyperlipidemia: Continue with atorvastatin at his home dose. SERGIO on CKD stage III: On presentation his GFR was below baseline. Patient has had some hydration and his GFR is actually above his baseline. DVT prophylaxis: Continue with Lovenox at escalated dose due to Covid and elevated D-dimer. PUD prophylaxis: PPI given the fact that he is on the steroids.
[2020-07-19] MEDS: Aspirin 81 mg Enteric Coated Tablet PO SCH (20:27)
[2020-07-19] MEDS: Atorvastatin Calcium 40 MG TAB PO SCH (20:27)
[2020-07-19] MEDS: Melatonin 3 MG TAB PO PRN (20:28)
[2020-07-20] MEDS: Cepastat Lozenges 1 LOZ PO PRN ×4 (03:12→20:29)
[2020-07-20] MEDS: guaiFENesin 200 MG TAB PO PRN ×2 (03:13→20:29)
[2020-07-20] MEDS: cloNIDine 0.1mg/24 Hour PATCH TD SCH (03:14)
[2020-07-20 05:20] LABS: #Eosinphils 0.1 thou/uL (0.0-0.7); #Lymphocytes 0.4 thou/uL (1.20-3.40); #Monocytes 0.4 thou/uL (0.11-0.59); #Neutrophils 11.6 thou/uL (1.40-6.50); %Eosinophils 0.5 % (0.0-10.0); %Lymphocytes 3.5 % (21.0-51.0); %Monocytes 3.2 % (0.0-10.0); %Neutrophils 92.8 % (42.0-75.0); Hemoglobin 14.4 g/dL (14.0-18.0); Mean Corpuscular HGB CONC 33.4 g/dL (32.0-36.0); Mean Corpuscular Hemoglobin 30.1 pg (27.0-31.0); Mean Corpuscular Volume 90.1 fL (78.0-98.0); Mean Platelet Volume 8.9 fL (7.4-10.4); Platelet Count 260 thou/uL (130-400); RBC Distribution Width 11.9 % (11.5-14.5); Red Blood Cell (RBC) Count 4.78 mill/uL (4.70-6.10); White Blood Cell (WBC) Count 12.5 thou/uL (4.8-10.8)
[2020-07-20] MEDS: Acetaminophen 325 MG TAB PO PRN (05:46)
[2020-07-20 05:50] LABS: Anion Gap 16 mmol/L (10-20); BUN (Urea Nitrogen) 33 mg/dL (8.4-25.7); Calc. Creatinine Clearance 56 mL/min (70-130); Carbon Dioxide 25 mmol/L (23-31); Chloride 98 mmol/L (98-107); Potassium 5.3 mmol/L (3.5-5.1); Sodium 134 mmol/L (136-145)
[2020-07-20 05:51] LABS: Calcium 8.3 mg/dL (7.8-10.44); Glucose 87 mg/dL (83-110)
[2020-07-20] MEDS: Enoxaparin Sodium 40 MG/0.4 ML SYRINGE SC SCH ×2 (07:16→20:28)
[2020-07-20] MEDS: Dexamethasone 4 MG TAB PO SCH (07:16)
[2020-07-20] MEDS: Multivit, Therapeutic 1 TAB PO SCH (07:17)
[2020-07-20] MEDS: Ascorbic Acid 500 mg Chewable Tablet PO SCH (07:17)
[2020-07-20] MEDS: Cholecalciferol 1,000 UNITS (25 MCG) TAB PO SCH (07:17)
[2020-07-20] MEDS: Zinc Sulfate 220 MG CAP PO SCH (07:18)
--- NOTE | 2020-07-20 08:29 | RAD ---
Portable frontal chest radiograph: 07/20/2020 COMPARISON: 07/12/2020 HISTORY: Short of breath FINDINGS: No pneumothorax is evident. There is extensive bilateral interstitial opacity with scattere d areas of hazy groundglass alveolar opacity. These findings are similar when compared to the 07/12/2020 examination and are suspicious for bilateral Covid pneumonia. IMPRESSION: Findings suspicious for bilateral Covid pneumonia, similar when compared to the prior exa mination.
[2020-07-20 09:56] LABS: Bacteria/HPF None Seen HPF (None Seen); Bilirubin Negative (Negative); Blood, Urine Negative (Negative); Clarity Clear (Clear); Glucose, Urine (Dipstick) Normal (Negative); Ketone, Urine Negative (Negative); Leukocyte Negative Leu/uL (Negative); Mucous/LPF 1+ LPF (<2+); Nitrite Negative (Negative); Protein, Urine (Dipstick) 50 mg/dL (Neg-Trace); RBC/HPF 0-3 HPF (0-3); Specific Gravity, Urine 1.032 (1.002-1.036); Squamous Epithelial None Seen HPF (0-3); Urobilinogen 3 mg/dL (Less than 2); WBC/HPF 0-3 HPF (0-3)
[2020-07-20 09:59] LABS: Urine Culture Reflex No No
[2020-07-20] MEDS: Cefepime 2 GM in Sodium Chloride 0.9% 100 ML IVPB SCH (20:28)
[2020-07-20] MEDS: Melatonin 3 MG TAB PO PRN (20:29)
[2020-07-20] MEDS: Aspirin 81 mg Enteric Coated Tablet PO SCH (20:29)
[2020-07-20] MEDS: Atorvastatin Calcium 40 MG TAB PO SCH (20:29)
[2020-07-21] MEDS: Cholecalciferol 1,000 UNITS (25 MCG) TAB PO SCH (07:51)
[2020-07-21] MEDS: Ascorbic Acid 500 mg Chewable Tablet PO SCH (07:52)
[2020-07-21] MEDS: Zinc Sulfate 220 MG CAP PO SCH (07:52)
[2020-07-21] MEDS: Dexamethasone 4 MG TAB PO SCH (07:52)
[2020-07-21] MEDS: Enoxaparin Sodium 40 MG/0.4 ML SYRINGE SC SCH ×2 (07:53→20:28)
[2020-07-21] MEDS: Multivit, Therapeutic 1 TAB PO SCH (07:53)
[2020-07-21] MEDS: Cefepime 2 GM in Sodium Chloride 0.9% 100 ML IVPB SCH ×2 (07:53→20:26)
--- NOTE | 2020-07-21 16:36 | PDOC.HOSPP ---
- Subjective Encounter Date: 07/20/20 Subjective: Reports she is feeling better. Continues to be very active around the room. - Objective Vital Signs & Weight: Vital Signs (12 hours) Temp Pulse Resp BP BP Pulse Ox 07/21/20 14:30 64 96 07/21/20 13:02 97.9 F 67 24 H 127/61 99 07/21/20 08:00 99 F 75 24 H 128/59 L 92 L Weight Weight 162 lb 9 oz I&O: 07/20/20 07/21/20 07/22/20 06:59 06:59 06:59 Intake Total 1900 878 Output Total 9233 6190 275 Balance -365 -472 -275 Result Diagrams: 07/20/20 04:29 07/20/20 04:29 Hospitalist ROS - Medication Medications: Active Medications Generic Name Dose Route Start Last Admin Trade Name Freq PRN Reason Stop Dose Admin Acetaminophen 650 mg 07/12/20 08:57 07/20/20 05:46 Acetaminophen 325 Mg Tab PO 650 mg Q4H PRN Administration Headache/Fever/Mild Pain (1-3) Alprazolam 0.25 mg 07/16/20 12:12 07/18/20 20:29 Alprazolam 0.25 Mg Tab PO 0.25 mg TIDPRN PRN Administration Anxiety Ascorbic Acid 1,000 mg 07/13/20 09:00 07/21/20 07:52 Ascorbic Acid 500 Mg Chewable Tablet PO 1,000 mg DAILY CM Administration Aspirin 81 mg 07/12/20 21:00 07/20/20 20:29 Aspirin 81 Mg Enteric Coated Tablet PO 81 mg HS CM Administration Atorvastatin Calcium 40 mg 07/12/20 21:00 07/20/20 20:29 Atorvastatin Calcium 40 Mg Tab PO 40 mg QPM CM Administration Cholecalciferol 2,000 units 07/13/20 09:00 07/21/20 07:51 Cholecalciferol 1,000 Units (25 Mcg) Tab PO 2,000 units DAILY CM Administration Clonidine 0.1 mg 07/13/20 03:00 07/20/20 03:14 Clonidine 0.1mg/24 Hour Patch TD 0.1 mg Q7D CM Administration Dexamethasone 6 mg 07/13/20 08:00 07/21/20 07:52 Dexamethasone 4 Mg Tab PO 6 mg QAM-WM CM Administration Enoxaparin Sodium 40 mg 07/14/20 21:00 07/21/20 07:53 Enoxaparin Sodium 40 Mg/0.4 Ml Syringe SC 40 mg BID CM Administration Guaifenesin 400 mg 07/14/20 21:00 07/20/20 20:29 Guaifenesin 200 Mg Tab PO 400 mg Q4H PRN Administration Cough Hydralazine HCl 10 mg 07/12/20 14:18 07/16/20 03:59 Hydralazine 20 Mg/Ml Vial SLOW IVP 10 mg Q4H PRN Administration SBP>150 Cefepime HCl 2 gm/ Sodium 100 mls @ 200 mls/hr 07/20/20 21:00 07/21/20 07:53 Chloride IVPB 100 mls Q12HR CM Administration Melatonin 3 mg 07/14/20 01:37 07/20/20 20:29 Melatonin 3 Mg Tab PO 3 mg HSPRN PRN Administration Insomnia Multivitamins 1 tab 07/13/20 09:00 07/21/20 07:53 Multivit, Therapeutic 1 Tab PO 1 tab QAM CM Administration Pantoprazole Sodium 40 mg 07/15/20 09:00 07/21/20 07:53 Pantoprazole 40 Mg Tab PO 40 mg DAILY CM Administration Throat Lozenges 1 med 07/14/20 01:37 07/20/20 20:29 Cepastat Lozenges 1 Med PO 1 med Q2H PRN Administration Sore Throat Zinc Sulfate 220 mg 07/13/20 09:00 07/21/20 07:52 Zinc Sulfate 220 Mg Cap PO 220 mg DAILY CM Administration - Exam General Appearance: NAD, awake alert Heart: RRR, no gallops, no rubs, II/IV Respiratory - other findings: Right lower lobe is clear, persistent rales left base Gastrointestinal: soft, non-tender, non-distended, normal bowel sounds, no palp able masses, no hepatomegaly, no splenomegaly, no bruit Extremities: no cyanosis, no clubbing, no edema Skin: normal turgor Neurological: no focal deficits Musculoskeletal: normal tone Psychiatric: normal affect, normal behavior, A&O x 3 Hosp A/P (1) Acute respiratory failure with hypoxia Code(s): J96.01 - ACUTE RESPIRATORY FAILURE WITH HYPOXIA Status: Acute (2) Pneumonia due to COVID-19 virus Code(s): U07.1 - COVID-19; J12.82 - PNEUMONIA DUE TO CORONAVIRUS DISEASE 2019 Status: Acute (3) CKD (chronic kidney disease), stage III Code(s): N18.3 - CHRONIC KIDNEY DISEASE, STAGE 3 (MODERATE) * DO NOT USE * Status: Chronic (4) GERD (gastroesophageal reflux disease) Code(s): K21.9 - GASTRO-ESOPHAGEAL REFLUX DISEASE WITHOUT ESOPHAGITIS Status: Chronic Qualifiers: Esophagitis presence: without esophagitis Qualified Code(s): K21.9 - Gastro-esophageal reflux disease without esophagitis (5) HLD (hyperlipidemia) Code(s): E78.5 - HYPERLIPIDEMIA, UNSPECIFIED Status: Chronic Qualifiers: Hyperlipidemia type: unspecified Qualified Code(s): E78.5 - Hyperlipidemia, unspecified (6) HTN (hypertension) Code(s): I10 - ESSENTIAL (PRIMARY) HYPERTENSION Status: Chronic Qualifiers: Hypertension type: essential hypertension Qualified Code(s): I10 - Essential (primary) hypertension (7) Fever Code(s): R50.9 - FEVER, UNSPECIFIED Status: Acute - Plan This patient is a 75-year-old male who is generally quite healthy. He presented with shortness of breath, fever, chills that started around July 02. He has tested positive for Covid. COVID-19 pneumonia: He has been on the window of remdesivir. Continue Decadron, vitamin supplementation. Repeat inflammatory markers on 07/14/2020 reveal his CRP is down from 30-18 but his D-dimer is up over 3. We will increase his Lovenox to 40 mg twice daily. Patient had been receiving p.o. prednisone due to a vertigo issue prior to falling ill with the Covid. This accounted for his initial leukocytosis. No evidence of bacterial infection. Antibiotics discontinued on 07/14/2020. Elevated D-dimer up to 20 on 07/19/2020 prompted lower extremity Doppler. This was negative. Continuing with the elevated dose of Lovenox. Acute hypoxic respiratory failure: Patient is on fairly significant high flow nasal cannula oxygen supplementation. At rest his sats remained in the upper 90s. With talking his sats dropped into the 80s. Bronchodilators. Long discussion with the patient on 07/14/2020 regarding the likely prolonged course related to his hypoxia. His CT scan of the chest shows extensive inflammatory changes. 07/17/20 tapered down from 60 LPM to 45 LPM HFNC. 07/18/2020 encourage the patient to increase his activity within the room. He continues to do well with activity about the room. Fever: Patient did develop a significant fever overnight. Cultures were obtained. Will obtain UA and chest x-ray. Hypertension: Continue with his Catapres patch. On 07/16/2020 the patient indicated that he typically has a film covering over the Catapres patch at home. He reports that it tends to work better with that. That was initiated on 07/16/2020. His blood pressure did improve with that Hyperlipidemia: Continue with atorvastatin at his home dose. SERGIO on CKD stage III: On presentation his GFR was below baseline. Patient has had some hydration and his GFR is actually above his baseline. DVT prophylaxis: Continue with Lovenox at escalated dose due to Covid and elevated D-dimer. PUD prophylaxis: PPI given the fact that he is on the steroids.
--- NOTE | 2020-07-21 20:23 | PDOC.HOSPP ---
- Subjective Encounter Date: 07/21/20 Encounter Time: 19:15 Subjective: f/u for COVID PNA/hypoxic resp failure, transitioned from high-flow to NC @ 6L/min. Feels better overall but remains weak. - Objective Vital Signs & Weight: Vital Signs (12 hours) Temp Pulse Resp BP BP Pulse Ox 07/21/20 17:34 97.8 F 55 L 22 H 159/67 H 97 07/21/20 14:30 64 96 07/21/20 13:02 97.9 F 67 24 H 127/61 99 Weight Weight 162 lb 9 oz I&O: 07/20/20 07/21/20 07/22/20 06:59 06:59 06:59 Intake Total 1900 878 960 Output Total 3321 8930 275 Balance -365 -519 645 Result Diagrams: 07/20/20 04:29 07/20/20 04:29 Radiology Reviewed by me: Yes (PCXR - similar appearing infiltrates to prior imagin) Hospitalist ROS - Medication Medications: Active Medications Generic Name Dose Route Start Last Admin Trade Name Freq PRN Reason Stop Dose Admin Acetaminophen 650 mg 07/12/20 08:57 07/20/20 05:46 Acetaminophen 325 Mg Tab PO 650 mg Q4H PRN Administration Headache/Fever/Mild Pain (1-3) Alprazolam 0.25 mg 07/16/20 12:12 07/18/20 20:29 Alprazolam 0.25 Mg Tab PO 0.25 mg TIDPRN PRN Administration Anxiety Ascorbic Acid 1,000 mg 07/13/20 09:00 07/21/20 07:52 Ascorbic Acid 500 Mg Chewable Tablet PO 1,000 mg DAILY CM Administration Aspirin 81 mg 07/12/20 21:00 07/20/20 20:29 Aspirin 81 Mg Enteric Coated Tablet PO 81 mg HS CM Administration Atorvastatin Calcium 40 mg 07/12/20 21:00 07/20/20 20:29 Atorvastatin Calcium 40 Mg Tab PO 40 mg QPM CM Administration Cholecalciferol 2,000 units 07/13/20 09:00 07/21/20 07:51 Cholecalciferol 1,000 Units (25 Mcg) Tab PO 2,000 units DAILY CM Administration Clonidine 0.1 mg 07/13/20 03:00 07/20/20 03:14 Clonidine 0.1mg/24 Hour Patch TD 0.1 mg Q7D CM Administration Dexamethasone 6 mg 07/13/20 08:00 07/21/20 07:52 Dexamethasone 4 Mg Tab PO 6 mg QAM-WM CM Administration Enoxaparin Sodium 40 mg 07/14/20 21:00 07/21/20 07:53 Enoxaparin Sodium 40 Mg/0.4 Ml Syringe SC 40 mg BID CM Administration Guaifenesin 400 mg 07/14/20 21:00 07/20/20 20:29 Guaifenesin 200 Mg Tab PO 400 mg Q4H PRN Administration Cough Hydralazine HCl 10 mg 07/12/20 14:18 07/16/20 03:59 Hydralazine 20 Mg/Ml Vial SLOW IVP 10 mg Q4H PRN Administration SBP>150 Cefepime HCl 2 gm/ Sodium 100 mls @ 200 mls/hr 07/20/20 21:00 07/21/20 07:53 Chloride IVPB 100 mls Q12HR CM Administration Melatonin 3 mg 07/14/20 01:37 07/20/20 20:29 Melatonin 3 Mg Tab PO 3 mg HSPRN PRN Administration Insomnia Multivitamins 1 tab 07/13/20 09:00 07/21/20 07:53 Multivit, Therapeutic 1 Tab PO 1 tab QAM CM Administration Pantoprazole Sodium 40 mg 07/15/20 09:00 07/21/20 07:53 Pantoprazole 40 Mg Tab PO 40 mg DAILY CM Administration Throat Lozenges 1 med 07/14/20 01:37 07/20/20 20:29 Cepastat Lozenges 1 Med PO 1 med Q2H PRN Administration Sore Throat Zinc Sulfate 220 mg 07/13/20 09:00 07/21/20 07:52 Zinc Sulfate 220 Mg Cap PO 220 mg DAILY CM Administration - Exam General Appearance: NAD, awake alert Eye: PERRL, anicteric sclera ENT: normocephalic atraumatic, no oropharyngeal lesions Neck: supple, symmetric, no JVD, no thyromegaly, no lymphadenopathy Heart: RRR, no gallops, no rubs, normal peripheral pulses Heart - other findings: S1, S2 Respiratory: tachypneic Respiratory - other findings: few scattered rhonchi, diminished in bases Gastrointestinal: soft, non-tender, non-distended, normal bowel sounds, no palpable masses Extremities: no cyanosis, no clubbing, no edema Skin: normal turgor, no lesions Neurological: cranial nerve grossly intact, no new deficit Musculoskeletal: normal tone, normal strength, no muscle wasting Psychiatric: normal affect, A&O x 3 Hosp A/P (1) Pneumonia due to COVID-19 virus Code(s): U07.1 - COVID-19; J12.82 - PNEUMONIA DUE TO CORONAVIRUS DISEASE 2018 Status: Acute Plan: Continue Dexamethasone/Vit C/Zinc/Cefepime/Albuterol/Lovenox (2) Acute respiratory failure with hypoxia Code(s): J96.01 - ACUTE RESPIRATORY FAILURE WITH HYPOXIA Status: Acute Plan: Transitioning to 6L/min NC from high-flow, Albuterol MDI (3) CKD (chronic kidney disease), stage III Code(s): N18.3 - CHRONIC KIDNEY DISEASE, STAGE 3 (MODERATE) * DO NOT USE * Status: Chronic Plan: Stable trend overall, avoid nephrotoxic meds and limit contrast exposure (4) HTN (hypertension) Code(s): I10 - ESSENTIAL (PRIMARY) HYPERTENSION Status: Chronic Qualifiers: Hypertension type: essential hypertension Qualified Code(s): I10 - Essential (primary) hypertension Plan: Stable, continue home regimen - Plan continue antibiotics, PT/OT, social work associate, respiratory therapy, DVT proph w/SCDs Stable currently Continue Dexamethasone/Cefepime Continue Albuterol/Lovenox OOB/ambulate Incentive spirometer AM lab: D-dimer, Ferritin
[2020-07-21] MEDS: Aspirin 81 mg Enteric Coated Tablet PO SCH (20:26)
[2020-07-21] MEDS: Atorvastatin Calcium 40 MG TAB PO SCH (20:26)
[2020-07-21] MEDS: Melatonin 3 MG TAB PO PRN (20:29)
[2020-07-22] MEDS: Cholecalciferol 1,000 UNITS (25 MCG) TAB PO SCH (07:55)
[2020-07-22] MEDS: Zinc Sulfate 220 MG CAP PO SCH (07:56)
[2020-07-22] MEDS: Enoxaparin Sodium 40 MG/0.4 ML SYRINGE SC SCH ×2 (07:56→20:04)
[2020-07-22] MEDS: Ascorbic Acid 500 mg Chewable Tablet PO SCH (07:56)
[2020-07-22] MEDS: Dexamethasone 4 MG TAB PO SCH (07:56)
[2020-07-22] MEDS: Multivit, Therapeutic 1 TAB PO SCH (07:56)
[2020-07-22] MEDS: Cefepime 2 GM in Sodium Chloride 0.9% 100 ML IVPB SCH ×2 (07:58→20:03)
--- NOTE | 2020-07-22 18:33 | PDOC.HOSPP ---
- Subjective Encounter Date: 07/22/20 Encounter Time: 18:30 Subjective: f/u for COVID PNA/hypoxic resp failure on O2 @ 6L/min NC. Overall feeling much better. - Objective Vital Signs & Weight: Vital Signs (12 hours) Temp Pulse Resp BP BP Pulse Ox 07/22/20 16:00 98.0 F 55 L 18 142/65 H 95 07/22/20 13:00 98.1 F 68 24 H 140/66 98 07/22/20 08:00 99.7 F H 69 24 H 140/66 91 L Weight Weight 160 lb 14.4 oz I&O: 07/21/20 07/22/20 07/23/20 06:59 06:59 06:59 Intake Total 878 1440 700 Output Total 1350 675 750 Balance -472 765 -50 Result Diagrams: 07/20/20 04:29 07/20/20 04:29 Hospitalist ROS - Medication Medications: Active Medications Generic Name Dose Route Start Last Admin Trade Name Freq PRN Reason Stop Dose Admin Acetaminophen 650 mg 07/12/20 08:57 07/20/20 05:46 Acetaminophen 325 Mg Tab PO 650 mg Q4H PRN Administration Headache/Fever/Mild Pain (1-3) Alprazolam 0.25 mg 07/16/20 12:12 07/18/20 20:29 Alprazolam 0.25 Mg Tab PO 0.25 mg TIDPRN PRN Administration Anxiety Ascorbic Acid 1,000 mg 07/13/20 09:00 07/22/20 07:56 Ascorbic Acid 500 Mg Chewable Tablet PO 1,000 mg DAILY CM Administration Aspirin 81 mg 07/12/20 21:00 07/21/20 20:26 Aspirin 81 Mg Enteric Coated Tablet PO 81 mg HS CM Administration Atorvastatin Calcium 40 mg 07/12/20 21:00 07/21/20 20:26 Atorvastatin Calcium 40 Mg Tab PO 40 mg QPM CM Administration Cholecalciferol 2,000 units 07/13/20 09:00 07/22/20 07:55 Cholecalciferol 1,000 Units (25 Mcg) Tab PO 2,000 units DAILY CM Administration Clonidine 0.1 mg 07/13/20 03:00 07/20/20 03:14 Clonidine 0.1mg/24 Hour Patch TD 0.1 mg Q7D CM Administration Dexamethasone 6 mg 07/13/20 08:00 07/22/20 07:56 Dexamethasone 4 Mg Tab PO 6 mg QAM-WM CM Administration Enoxaparin Sodium 40 mg 07/14/20 21:00 07/22/20 07:56 Enoxaparin Sodium 40 Mg/0.4 Ml Syringe SC 40 mg BID CM Administration Guaifenesin 400 mg 07/14/20 21:00 07/20/20 20:29 Guaifenesin 200 Mg Tab PO 400 mg Q4H PRN Administration Cough Hydralazine HCl 10 mg 07/12/20 14:18 07/16/20 03:59 Hydralazine 20 Mg/Ml Vial SLOW IVP 10 mg Q4H PRN Administration SBP>150 Cefepime HCl 2 gm/ Sodium 100 mls @ 200 mls/hr 07/20/20 21:00 07/22/20 07:58 Chloride IVPB 100 mls Q12HR CM Administration Melatonin 3 mg 07/14/20 01:37 07/21/20 20:29 Melatonin 3 Mg Tab PO 3 mg HSPRN PRN Administration Insomnia Multivitamins 1 tab 07/13/20 09:00 07/22/20 07:56 Multivit, Therapeutic 1 Tab PO 1 tab QAM CM Administration Pantoprazole Sodium 40 mg 07/15/20 09:00 07/22/20 07:56 Pantoprazole 40 Mg Tab PO 40 mg DAILY CM Administration Throat Lozenges 1 med 07/14/20 01:37 07/20/20 20:29 Cepastat Lozenges 1 Med PO 1 med Q2H PRN Administration Sore Throat Zinc Sulfate 220 mg 07/13/20 09:00 07/22/20 07:56 Zinc Sulfate 220 Mg Cap PO 220 mg DAILY CM Administration - Exam General Appearance: NAD, awake alert Eye: PERRL, anicteric sclera ENT: normocephalic atraumatic, no oropharyngeal lesions Neck: supple, symmetric, no JVD, no thyromegaly, no lymphadenopathy Heart: RRR, no gallops, no rubs, normal peripheral pulses Heart - other findings: S1, S2 Respiratory: tachypneic Respiratory - other findings: scattered coarse sounds bilat Gastrointestinal: soft, non-tender, non-distended, normal bowel sounds, no palpable masses Extremities: no cyanosis, no clubbing, no edema Skin: normal turgor, no lesions Neurological: cranial nerve grossly intact, no new deficit Musculoskeletal: normal tone, normal strength, no muscle wasting Psychiatric: normal affect, A&O x 3 Hosp A/P (1) Pneumonia due to COVID-19 virus Code(s): U07.1 - COVID-19; J12.82 - PNEUMONIA DUE TO CORONAVIRUS DISEASE 2019 Status: Acute Plan: Continue Dexamethasone/Cefepime/Lovenox/Vit C/Zinc (2) Acute respiratory failure with hypoxia Code(s): J96.01 - ACUTE RESPIRATORY FAILURE WITH HYPOXIA Status: Acute Plan: Continue O2 @ 6L/min NC, wean as clinically indicated (3) CKD (chronic kidney disease), stage III Code(s): N18.3 - CHRONIC KIDNEY DISEASE, STAGE 3 (MODERATE) * DO NOT USE * Status: Chronic (4) HTN (hypertension) Code(s): I10 - ESSENTIAL (PRIMARY) HYPERTENSION Status: Chronic Qualifiers: Hypertension type: essential hypertension Qualified Code(s): I10 - Essential (primary) hypertension - Plan continue antibiotics, web content & social media manager, respiratory therapy, incentive spir ometry, out of bed/ambulate, DVT proph w/SCDs Stable currently Continue Dexamethasone/Cefepime Continue Albuterol/Lovenox OOB/ambulate Incentive spirometer Assess for home O2 AM lab: D-dimer, Ferritin
[2020-07-22] MEDS: hydrALAZINE 20 MG/ML VIAL SLOW IVP PRN (20:03)
[2020-07-22] MEDS: Aspirin 81 mg Enteric Coated Tablet PO SCH (20:04)
[2020-07-22] MEDS: Melatonin 3 MG TAB PO PRN (20:04)
[2020-07-22] MEDS: Atorvastatin Calcium 40 MG TAB PO SCH (20:04)
[2020-07-22] MEDS: Albuterol 200 PUFF (6.7GM INHALER) INH PRN (20:52)
[2020-07-23] MEDS: guaiFENesin 200 MG TAB PO PRN (02:15)
[2020-07-23] MEDS: Albuterol 200 PUFF (6.7GM INHALER) INH PRN (02:16)
[2020-07-23] MEDS: Dexamethasone 4 MG TAB PO SCH (09:22)
[2020-07-23] MEDS: Cefepime 2 GM in Sodium Chloride 0.9% 100 ML IVPB SCH ×2 (09:22→20:53)
[2020-07-23] MEDS: Ascorbic Acid 500 mg Chewable Tablet PO SCH (09:23)
[2020-07-23] MEDS: Multivit, Therapeutic 1 TAB PO SCH (09:23)
[2020-07-23] MEDS: Enoxaparin Sodium 40 MG/0.4 ML SYRINGE SC SCH ×2 (09:23→20:54)
[2020-07-23] MEDS: Cholecalciferol 1,000 UNITS (25 MCG) TAB PO SCH (09:23)
[2020-07-23] MEDS: Zinc Sulfate 220 MG CAP PO SCH (09:24)
[2020-07-23 09:26] VITALS: BMI 23.3
--- NOTE | 2020-07-23 18:55 | PDOC.HOSPP ---
- Subjective Encounter Date: 07/23/20 Encounter Time: 18:50 Subjective: f/u for COVID PNA/resp failure on current O2 @ 6L/min NC. Some persistent cough but overall feeling better. - Objective Vital Signs & Weight: Vital Signs (12 hours) Temp Pulse Resp BP BP Pulse Ox 07/23/20 16:00 90 L 07/23/20 15:26 98 F 22 H 147/65 H 07/23/20 13:28 97.7 F 82 22 H 146/76 H 91 L 07/23/20 09:42 83 22 H 155/67 H 89 L Weight Admit Weight 182 lb 4 oz Weight 162 lb 4.8 oz I&O: 07/22/20 07/23/20 07/24/20 06:59 06:59 06:59 Intake Total 1440 1140 480 Output Total 675 2150 400 Balance 765 -1010 80 Result Diagrams: 07/20/20 04:29 07/20/20 04:29 Additional Labs: Laboratory Tests 07/21/20 07/23/20 07/23/20 04:41 04:40 04:40 D-Dimer Greater than 20.00 H Ferritin 2520.59 H C-Reactive Protein 17.45 H Hospitalist ROS - Medication Medications: Active Medications Generic Name Dose Route Start Last Admin Trade Name Freq PRN Reason Stop Dose Admin Acetaminophen 650 mg 07/12/20 08:57 07/20/20 05:46 Acetaminophen 325 Mg Tab PO 650 mg Q4H PRN Administration Headache/Fever/Mild Pain (1-3) Albuterol Sulfate 2 puff 07/13/20 10:28 07/22/20 20:52 Albuterol 200 Puff (6.7gm Inhaler) INH 2 puff Q4H PRN Administration .SOB Alprazolam 0.25 mg 07/16/20 12:12 07/18/20 20:29 Alprazolam 0.25 Mg Tab PO 0.25 mg TIDPRN PRN Administration Anxiety Ascorbic Acid 1,000 mg 07/13/20 09:00 07/23/20 09:23 Ascorbic Acid 500 Mg Chewable Tablet PO 1,000 mg DAILY CM Administration Aspirin 81 mg 07/12/20 21:00 07/22/20 20:04 Aspirin 81 Mg Enteric Coated Tablet PO 81 mg HS CM Administration Atorvastatin Calcium 40 mg 07/12/20 21:00 07/22/20 20:04 Atorvastatin Calcium 40 Mg Tab PO 40 mg QPM CM Administration Cholecalciferol 2,000 units 07/13/20 09:00 07/23/20 09:23 Cholecalciferol 1,000 Units (25 Mcg) Tab PO 2,000 units DAILY CM Administration Clonidine 0.1 mg 07/13/20 03:00 07/20/20 03:14 Clonidine 0.1mg/24 Hour Patch TD 0.1 mg Q7D CM Administration Dexamethasone 6 mg 07/13/20 08:00 07/23/20 09:22 Dexamethasone 4 Mg Tab PO 6 mg QAM-WM CM Administration Enoxaparin Sodium 40 mg 07/14/20 21:00 07/23/20 09:23 Enoxaparin Sodium 40 Mg/0.4 Ml Syringe SC 40 mg BID CM Administration Guaifenesin 400 mg 07/14/20 21:00 07/23/20 02:15 Guaifenesin 200 Mg Tab PO 400 mg Q4H PRN Administration Cough Hydralazine HCl 10 mg 07/12/20 14:18 07/22/20 20:03 Hydralazine 20 Mg/Ml Vial SLOW IVP 10 mg Q4H PRN Administration SBP>150 Cefepime HCl 2 gm/ Sodium 100 mls @ 200 mls/hr 07/20/20 21:00 07/23/20 09:22 Chloride IVPB 100 mls Q12HR CM Administration Melatonin 3 mg 07/14/20 01:37 07/22/20 20:04 Melatonin 3 Mg Tab PO 3 mg HSPRN PRN Administration Insomnia Multivitamins 1 tab 07/13/20 09:00 07/23/20 09:23 Multivit, Therapeutic 1 Tab PO 1 tab QAM CM Administration Pantoprazole Sodium 40 mg 07/15/20 09:00 07/23/20 09:23 Pantoprazole 40 Mg Tab PO 40 mg DAILY CM Administration Throat Lozenges 1 med 07/14/20 01:37 07/20/20 20:29 Cepastat Lozenges 1 Med PO 1 med Q2H PRN Administration Sore Throat Zinc Sulfate 220 mg 07/13/20 09:00 07/23/20 09:24 Zinc Sulfate 220 Mg Cap PO 220 mg DAILY CM Administration - Exam General Appearance: ill appearing General - other findings: tachypneic Eye: PERRL, anicteric sclera ENT: normocephalic atraumatic, no oropharyngeal lesions Neck: supple, symmetric, no JVD, no thyromegaly, no lymphadenopathy Heart: RRR, no gallops, no rubs, normal peripheral pulses Heart - other findings: S1, S2 Respiratory - other findings: diminished bilat, scattered coarse sounds Gastrointestinal: soft, non-tender, non-distended, normal bowel sounds, no palpable masses Extremities: no cyanosis, no clubbing, no edema Skin: normal turgor, no lesions Neurological: cranial nerve grossly intact, no new deficit Musculoskeletal: normal tone, generalized weakness Psychiatric: normal affect, A&O x 3 Hosp A/P (1) Pneumonia due to COVID-19 virus Code(s): U07.1 - COVID-19; J12.82 - PNEUMONIA DUE TO CORONAVIRUS DISEASE 2018 Status: Acute Plan: Persistent, continue Dexamethasone/Lovenox/Vit C/Zinc (2) Acute respiratory failure with hypoxia Code(s): J96.01 - ACUTE RESPIRATORY FAILURE WITH HYPOXIA Status: Acute Plan: Continue O2 supplementation, FM modality currently, Albuterol MDI (3) CKD (chronic kidney disease), stage III Code(s): N18.3 - CHRONIC KIDNEY DISEASE, STAGE 3 (MODERATE) * DO NOT USE * Status: Chronic (4) HTN (hypertension) Code(s): I10 - ESSENTIAL (PRIMARY) HYPERTENSION Status: Chronic Qualifiers: Hypertension type: essential hypertension Qualified Code(s): I10 - Essential (primary) hypertension - Plan social media editor, respiratory therapy, DVT proph w/SCDs Stable currently Continue Dexamethasone/Cefepime Continue Albuterol/Lovenox OOB/ambulate Incentive spirometer Assess for home O2 Add Phenergan cough syrup BID PRN AM lab: D-dimer, Ferritin
[2020-07-23] MEDS ORDERED: Promethazine DM 6.25-15mg/5ml 120 ML BOT PO PRN (19:08)
[2020-07-23] MEDS: Atorvastatin Calcium 40 MG TAB PO SCH (20:53)
[2020-07-23] MEDS: Melatonin 3 MG TAB PO PRN (20:53)
[2020-07-23] MEDS: Aspirin 81 mg Enteric Coated Tablet PO SCH (20:54)
[2020-07-23] MEDS ORDERED: Promethazine HCl 6.25 MG/5 ML Syrup PO PRN (20:55)
[2020-07-23] MEDS: PROVENTIL INHALER 6.7 G (200 INHALATIONS) INH SCH (23:45)
[2020-07-24] MEDS: PROVENTIL INHALER 6.7 G (200 INHALATIONS) INH SCH ×6 (04:18→23:45)
[2020-07-24] MEDS: Cefepime 2 GM in Sodium Chloride 0.9% 100 ML IVPB SCH ×2 (08:18→20:25)
[2020-07-24] MEDS: Dexamethasone 4 MG TAB PO SCH (08:19)
[2020-07-24] MEDS: Ascorbic Acid 500 mg Chewable Tablet PO SCH (08:20)
[2020-07-24] MEDS: Zinc Sulfate 220 MG CAP PO SCH (08:20)
[2020-07-24] MEDS: Cholecalciferol 1,000 UNITS (25 MCG) TAB PO SCH (08:21)
[2020-07-24] MEDS: Multivit, Therapeutic 1 TAB PO SCH (08:21)
[2020-07-24] MEDS: Enoxaparin Sodium 40 MG/0.4 ML SYRINGE SC SCH ×2 (12:21→20:25)
--- NOTE | 2020-07-24 16:55 | PDOC.HOSPP ---
- Subjective Encounter Date: 07/24/20 Encounter Time: 16:45 Subjective: f/u for COVID PNA/hypoxic resp failure. Placed back on high-flow O2 today and feeling better. - Objective Vital Signs & Weight: Vital Signs (12 hours) Temp Pulse Resp BP Pulse Ox 07/24/20 16:31 97.8 F 67 22 H 137/70 96 07/24/20 12:00 98.1 F 85 20 146/75 H 95 07/24/20 08:00 99.1 F 88 24 H 157/66 H 93 L Weight Admit Weight 182 lb 4 oz Weight 162 lb 4.8 oz I&O: 07/23/20 07/24/20 07/25/20 06:59 06:59 06:59 Intake Total 1140 830 Output Total 2150 600 Balance -1010 230 Result Diagrams: 07/20/20 04:29 07/20/20 04:29 Additional Labs: Laboratory Tests 07/21/20 07/23/20 07/23/20 04:41 04:40 04:40 D-Dimer Greater than 20.00 H Ferritin 2520.59 H C-Reactive Protein 17.45 H Radiology Reviewed by me: Yes (PCXR - increased bilat infiltrates) Hospitalist ROS - Medication Medications: Active Medications Generic Name Dose Route Start Last Admin Trade Name Freq PRN Reason Stop Dose Admin Acetaminophen 650 mg 07/12/20 08:57 07/20/20 05:46 Acetaminophen 325 Mg Tab PO 650 mg Q4H PRN Administration Headache/Fever/Mild Pain (1-3) Albuterol Sulfate 2 puff 07/23/20 22:30 07/24/20 16:00 Proventil Inhaler 6.7 G (200 Inhalations) INH 2 puff [id number] CM Administration Alprazolam 0.25 mg 07/16/20 12:12 07/18/20 20:29 Alprazolam 0.25 Mg Tab PO 0.25 mg TIDPRN PRN Administration Anxiety Ascorbic Acid 1,000 mg 07/13/20 09:00 07/24/20 08:20 Ascorbic Acid 500 Mg Chewable Tablet PO 1,000 mg DAILY MC Administration Aspirin 81 mg 07/12/20 21:00 07/23/20 20:54 Aspirin 81 Mg Enteric Coated Tablet PO 81 mg HS CM Administration Atorvastatin Calcium 40 mg 07/12/20 21:00 07/23/20 20:53 Atorvastatin Calcium 40 Mg Tab PO 40 mg QPM CM Administration Cholecalciferol 2,000 units 07/13/20 09:00 07/24/20 08:21 Cholecalciferol 1,000 Units (25 Mcg) Tab PO 2,000 units DAILY CM Administration Clonidine 0.1 mg 07/13/20 03:00 07/20/20 03:14 Clonidine 0.1mg/24 Hour Patch TD 0.1 mg Q7D CM Administration Dexamethasone 6 mg 07/13/20 08:00 07/24/20 08:19 Dexamethasone 4 Mg Tab PO 6 mg QAM-WM CM Administration Enoxaparin Sodium 40 mg 07/14/20 21:00 07/24/20 12:21 Enoxaparin Sodium 40 Mg/0.4 Ml Syringe SC 40 mg BID CM Administration Guaifenesin 400 mg 07/14/20 21:00 07/23/20 02:15 Guaifenesin 200 Mg Tab PO 400 mg Q4H PRN Administration Cough Hydralazine HCl 10 mg 07/12/20 14:18 07/22/20 20:03 Hydralazine 20 Mg/Ml Vial SLOW IVP 10 mg Q4H PRN Administration SBP>150 Cefepime HCl 2 gm/ Sodium 100 mls @ 200 mls/hr 07/20/20 21:00 07/24/20 08:18 Chloride IVPB 100 mls Q12HR CM Administration Melatonin 3 mg 07/14/20 01:37 07/23/20 20:53 Melatonin 3 Mg Tab PO 3 mg HSPRN PRN Administration Insomnia Multivitamins 1 tab 07/13/20 09:00 07/24/20 08:21 Multivit, Therapeutic 1 Tab PO 1 tab QAM CM Administration Pantoprazole Sodium 40 mg 07/15/20 09:00 07/24/20 08:20 Pantoprazole 40 Mg Tab PO 40 mg DAILY CM Administration Throat Lozenges 1 med 07/14/20 01:37 07/20/20 20:29 Cepastat Lozenges 1 Med PO 1 med Q2H PRN Administration Sore Throat Zinc Sulfate 220 mg 07/13/20 09:00 07/24/20 08:20 Zinc Sulfate 220 Mg Cap PO 220 mg DAILY CM Administration - Exam General Appearance: NAD, awake alert Eye: PERRL, anicteric sclera ENT: normocephalic atraumatic, no oropharyngeal lesions Neck: supple, symmetric, no JVD, no thyromegaly, no lymphadenopathy Heart: RRR, no gallops, no rubs, normal peripheral pulses Heart - other findings: S1, S2 Respiratory: no rales, tachypneic Respiratory - other findings: diminished bilat, scattered coarse sounds Gastrointestinal: soft, non-tender, non-distended, normal bowel sounds, no palpable masses Extremities: no cyanosis, no clubbing, no edema Skin: normal turgor, no lesions Neurological: cranial nerve grossly intact, no new deficit Musculoskeletal: normal tone, normal strength, no muscle wasting Psychiatric: normal affect, A&O x 3 Hosp A/P (1) Pneumonia due to COVID-19 virus Code(s): U07.1 - COVID-19; J12.82 - PNEUMONIA DUE TO CORONAVIRUS DISEASE 2018 Status: Acute Plan: Continue Cefepime/Lovenox/Dexamethasone/Vit C/Zinc (2) Acute respiratory failure with hypoxia Code(s): J96.01 - ACUTE RESPIRATORY FAILURE WITH HYPOXIA Status: Acute Plan: Resumed on high-flow NC @ 60L/min, continue pulmonary support (3) CKD (chronic kidney disease), stage III Code(s): N18.3 - CHRONIC KIDNEY DISEASE, STAGE 3 (MODERATE) * DO NOT USE * Status: Chronic (4) HTN (hypertension) Code(s): I10 - ESSENTIAL (PRIMARY) HYPERTENSION Status: Chronic Qualifiers: Hypertension type: essential hypertension Qualified Code(s): I10 - Essential (primary) hypertension - Plan plan discussed w/ family, continue antibiotics, social services counselor, respiratory therapy, out of bed/ambulate, DVT proph w/SCDs Stable currently Continue Dexamethasone/Cefepime Continue Albuterol/Lovenox OOB/ambulate Incentive spirometer Assess for home O2 Add Phenergan cough syrup BID PRN AM lab: D-dimer, Ferritin PCXR today
--- NOTE | 2020-07-24 17:22 | RAD ---
Portable frontal chest radiograph: 07/24/2020 COMPARISON: 07/20/2020 HISTORY: Hypoxia, Covid pneumonia FINDINGS: Extensive severe interstitial and alveolar opacity is noted throughout both lungs, probably slightly worsened within the mid lung zones bilaterally, right greater than left. No pneumothorax or large volume pleural effusion. Cardiomediastinal contours are grossly unchanged. IMPRESSION: Extensive severe bilateral interstitial and alveolar opacity, worsened when compared to p rior imaging, in keeping with the provided history of Covid pneumonia.
[2020-07-24] MEDS: Atorvastatin Calcium 40 MG TAB PO SCH (20:25)
[2020-07-24] MEDS: Aspirin 81 mg Enteric Coated Tablet PO SCH (20:25)
[2020-07-25] MEDS: PROVENTIL INHALER 6.7 G (200 INHALATIONS) INH SCH ×6 (05:02→22:46)
[2020-07-25] MEDS: Cefepime 2 GM in Sodium Chloride 0.9% 100 ML IVPB SCH ×2 (08:27→20:23)
[2020-07-25] MEDS: Zinc Sulfate 220 MG CAP PO SCH (08:27)
[2020-07-25] MEDS: Cholecalciferol 1,000 UNITS (25 MCG) TAB PO SCH (08:27)
[2020-07-25] MEDS: Enoxaparin Sodium 40 MG/0.4 ML SYRINGE SC SCH ×2 (08:28→20:23)
[2020-07-25] MEDS: Multivit, Therapeutic 1 TAB PO SCH (08:28)
[2020-07-25] MEDS: Ascorbic Acid 500 mg Chewable Tablet PO SCH (08:28)
[2020-07-25] MEDS: Dexamethasone 10 MG in Sodium Chloride 0.9% 50 ML IVPB SCH (08:31)
--- NOTE | 2020-07-25 16:21 | PDOC.HOSPP ---
- Subjective Encounter Date: 07/25/20 Encounter Time: 16:20 Subjective: f/u for COVID PNA/hypoxic resp failure. Receiving O2 @ 45L/min down from 60L/min in last 24h. Overall feeling better. - Objective Vital Signs & Weight: Vital Signs (12 hours) Temp Pulse Resp BP BP BP BP 07/25/20 16:00 98.1 F 93 22 H 128/72 07/25/20 12:00 97.7 F 76 20 132/66 07/25/20 08:00 07/25/20 07:42 99.1 F 103 H 18 153/63 H 07/25/20 05:05 97.8 F 68 18 144/67 H Pulse Ox 07/25/20 16:00 88 L 07/25/20 12:00 97 07/25/20 08:00 93 L 07/25/20 07:42 93 L 07/25/20 05:05 92 L Weight Admit Weight 182 lb 4 oz Weight 162 lb 4.8 oz I&O: 07/24/20 07/25/20 07/26/20 06:59 06:59 06:59 Intake Total 830 1900 Output Total 600 1350 Balance 230 550 Result Diagrams: 07/20/20 04:29 07/20/20 04:29 Additional Labs: Laboratory Tests 07/21/20 07/23/20 07/23/20 04:41 04:40 04:40 D-Dimer Greater than 20.00 H Ferritin 2520.59 H C-Reactive Protein 17.45 H Radiology Reviewed by me: Yes (PCXR - bilat infiltrates progressing) Hospitalist ROS - Medication Medications: Active Medications Generic Name Dose Route Start Last Admin Trade Name Freq PRN Reason Stop Dose Admin Acetaminophen 650 mg 07/12/20 08:57 07/20/20 05:46 Acetaminophen 325 Mg Tab PO 650 mg Q4H PRN Administration Headache/Fever/Mild Pain (1-3) Albuterol Sulfate 2 puff 07/23/20 22:30 07/25/20 15:35 Proventil Inhaler 6.7 G (200 Inhalations) INH 2 puff [id number] CM Administration Alprazolam 0.25 mg 07/16/20 12:12 07/18/20 20:29 Alprazolam 0.25 Mg Tab PO 0.25 mg TIDPRN PRN Administration Anxiety Ascorbic Acid 1,000 mg 07/13/20 09:00 07/25/20 08:28 Ascorbic Acid 500 Mg Chewable Tablet PO 1,000 mg DAILY CM Administration Aspirin 81 mg 07/12/20 21:00 07/24/20 20:25 Aspirin 81 Mg Enteric Coated Tablet PO 81 mg HS CM Administration Atorvastatin Calcium 40 mg 07/12/20 21:00 07/24/20 20:25 Atorvastatin Calcium 40 Mg Tab PO 40 mg QPM CM Administration Cholecalciferol 2,000 units 07/13/20 09:00 07/25/20 08:27 Cholecalciferol 1,000 Units (25 Mcg) Tab PO 2,000 units DAILY CM Administration Clonidine 0.1 mg 07/13/20 03:00 07/20/20 03:14 Clonidine 0.1mg/24 Hour Patch TD 0.1 mg Q7D CM Administration Enoxaparin Sodium 40 mg 07/14/20 21:00 07/25/20 08:28 Enoxaparin Sodium 40 Mg/0.4 Ml Syringe SC 40 mg BID CM Administration Guaifenesin 400 mg 07/14/20 21:00 07/23/20 02:15 Guaifenesin 200 Mg Tab PO 400 mg Q4H PRN Administration Cough Hydralazine HCl 10 mg 07/12/20 14:18 07/22/20 20:03 Hydralazine 20 Mg/Ml Vial SLOW IVP 10 mg Q4H PRN Administration SBP>150 Cefepime HCl 2 gm/ Sodium 100 mls @ 200 mls/hr 07/20/20 21:00 07/25/20 08:27 Chloride IVPB 100 mls Q12HR CM Administration Dexamethasone 10 mg/ Sodium 51 mls @ 100 mls/hr 07/25/20 09:00 07/25/20 08:31 Chloride IVPB 51 mls DAILY CM Administration Melatonin 3 mg 07/14/20 01:37 07/23/20 20:53 Melatonin 3 Mg Tab PO 3 mg HSPRN PRN Administration Insomnia Multivitamins 1 tab 07/13/20 09:00 07/25/20 08:28 Multivit, Therapeutic 1 Tab PO 1 tab QAM CM Administration Pantoprazole Sodium 40 mg 07/15/20 09:00 07/25/20 08:27 Pantoprazole 40 Mg Tab PO 40 mg DAILY CM Administration Throat Lozenges 1 med 07/14/20 01:37 07/20/20 20:29 Cepastat Lozenges 1 Med PO 1 med Q2H PRN Administration Sore Throat Zinc Sulfate 220 mg 07/13/20 09:00 07/25/20 08:27 Zinc Sulfate 220 Mg Cap PO 220 mg DAILY CM Administration - Exam General Appearance: awake alert Eye: PERRL, anicteric sclera ENT: normocephalic atraumatic, no oropharyngeal lesions Neck: supple, symmetric, no JVD, no thyromegaly, no lymphadenopathy Heart: RRR, no gallops, no rubs, normal peripheral pulses Heart - other findings: S1, S2 Respiratory: tachypneic Respiratory - other findings: diminished with coarse sounds bilat Gastrointestinal: soft, non-tender, non-distended, normal bowel sounds, no palpable masses Extremities: no cyanosis, no clubbing, no edema Skin: normal turgor, no lesions Neurological: cranial nerve grossly intact, no new deficit Musculoskeletal: normal tone, normal strength, no muscle wasting Psychiatric: normal affect, A&O x 3 Hosp A/P (1) Pneumonia due to COVID-19 virus Code(s): U07.1 - COVID-19; J12.82 - PNEUMONIA DUE TO CORONAVIRUS DISEASE 2018 Status: Acute Plan: Continue Dexamethasone/Albuterol/Vit C/Zinc/Lovenox (2) Acute respiratory failure with hypoxia Code(s): J96.01 - ACUTE RESPIRATORY FAILURE WITH HYPOXIA Status: Acute Plan: Continue high-flow O2, wean as clinically indicated (3) CKD (chronic kidney disease), stage III Code(s): N18.3 - CHRONIC KIDNEY DISEASE, STAGE 3 (MODERATE) * DO NOT USE * Status: Chronic (4) HTN (hypertension) Code(s): I10 - ESSENTIAL (PRIMARY) HYPERTENSION Status: Chronic Qualifiers: Hypertension type: essential hypertension Qualified Code(s): I10 - Essential (primary) hypertension - Plan plan discussed w/ family, PT/OT, social insurance specialist, respiratory therapy, incentive spirometry, out of bed/ambulate, DVT proph w/SCDs Stable currently Continue Dexamethasone/Cefepime Continue Albuterol/Lovenox OOB/ambulate Incentive spirometer Assess for home O2 Add Phenergan cough syrup BID PRN AM lab: D-dimer, Ferritin
[2020-07-25] MEDS: Aspirin 81 mg Enteric Coated Tablet PO SCH (20:23)
[2020-07-25] MEDS: Atorvastatin Calcium 40 MG TAB PO SCH (20:23)
[2020-07-25] MEDS: Dextromethorphan Polistirex 30 MG/5 ML (89 ML BOTTLE) PO PRN (20:25)
[2020-07-26] MEDS: PROVENTIL INHALER 6.7 G (200 INHALATIONS) INH SCH ×6 (03:50→23:27)
[2020-07-26] MEDS: Ascorbic Acid 500 mg Chewable Tablet PO SCH (08:27)
[2020-07-26] MEDS: Zinc Sulfate 220 MG CAP PO SCH (08:27)
[2020-07-26] MEDS: Multivit, Therapeutic 1 TAB PO SCH (08:27)
[2020-07-26] MEDS: Enoxaparin Sodium 40 MG/0.4 ML SYRINGE SC SCH ×2 (08:27→20:21)
[2020-07-26] MEDS: Dexamethasone 10 MG in Sodium Chloride 0.9% 50 ML IVPB SCH (08:27)
[2020-07-26] MEDS: Cefepime 2 GM in Sodium Chloride 0.9% 100 ML IVPB SCH ×2 (08:27→20:21)
[2020-07-26] MEDS: Cholecalciferol 1,000 UNITS (25 MCG) TAB PO SCH (08:27)
[2020-07-26] MEDS: Dextromethorphan Polistirex 30 MG/5 ML (89 ML BOTTLE) PO PRN (11:44)
--- NOTE | 2020-07-26 15:46 | PDOC.HOSPP ---
- Subjective Encounter Date: 07/26/20 Encounter Time: 15:45 Subjective: f/u for COVID PNA/resp failure on high-flow @ 50L/min NC. Feeling stronger today. - Objective Vital Signs & Weight: Vital Signs (12 hours) Temp Pulse Resp BP BP Pulse Ox 07/26/20 14:40 91 22 H 92 L 07/26/20 11:59 94 L 07/26/20 11:50 90 24 H 95 07/26/20 11:12 89 24 H 90 L 07/26/20 11:10 99.3 F 96 20 143/63 H 87 L 07/26/20 08:30 88 L 07/26/20 08:25 75 22 H 88 L 07/26/20 07:48 97.9 F 73 18 133/63 88 L 07/26/20 05:37 97.5 F L 66 20 155/71 H 92 L Weight Admit Weight 182 lb 4 oz Weight 162 lb 4.8 oz I&O: 07/25/20 07/26/20 07/27/20 06:59 06:59 06:59 Intake Total 1900 1100 Output Total 1350 950 Balance 550 150 Result Diagrams: 07/20/20 04:29 07/20/20 04:29 Additional Labs: Laboratory Tests 07/21/20 07/23/20 07/23/20 04:41 04:40 04:40 D-Dimer Greater than 20.00 H Ferritin 2520.59 H C-Reactive Protein 17.45 H 07/25/20 07/25/20 07:03 07:03 D-Dimer Ferritin 3255.52 H C-Reactive Protein 18.34 H Hospitalist ROS - Medication Medications: Active Medications Generic Name Dose Route Start Last Admin Trade Name Freq PRN Reason Stop Dose Admin Acetaminophen 650 mg 07/12/20 08:57 07/20/20 05:46 Acetaminophen 325 Mg Tab PO 650 mg Q4H PRN Administration Headache/Fever/Mild Pain (1-3) Albuterol Sulfate 2 puff 07/23/20 22:30 07/26/20 14:24 Proventil Inhaler 6.7 G (200 Inhalations) INH 2 puff [id number] CM Administration Ascorbic Acid 1,000 mg 07/13/20 09:00 07/26/20 08:27 Ascorbic Acid 500 Mg Chewable Tablet PO 1,000 mg DAILY CM Administration Aspirin 81 mg 07/12/20 21:00 07/25/20 20:23 Aspirin 81 Mg Enteric Coated Tablet PO 81 mg HS CM Administration Atorvastatin Calcium 40 mg 07/12/20 21:00 07/25/20 20:23 Atorvastatin Calcium 40 Mg Tab PO 40 mg QPM CM Administration Cholecalciferol 2,000 units 07/13/20 09:00 07/26/20 08:27 Cholecalciferol 1,000 Units (25 Mcg) Tab PO 2,000 units DAILY CM Administration Clonidine 0.1 mg 07/13/20 03:00 07/20/20 03:14 Clonidine 0.1mg/24 Hour Patch TD 0.1 mg Q7D CM Administration Dextromethorphan Polistirix 15 mg 07/23/20 20:56 07/26/20 11:44 Dextromethorphan Polistirex 30 Mg/5 Ml (89 Ml Bottle) PO 15 mg BIDPRN PRN Administration Cough Enoxaparin Sodium 40 mg 07/14/20 21:00 07/26/20 08:27 Enoxaparin Sodium 40 Mg/0.4 Ml Syringe SC 40 mg BID CM Administration Guaifenesin 400 mg 07/14/20 21:00 07/23/20 02:15 Guaifenesin 200 Mg Tab PO 400 mg Q4H PRN Administration Cough Hydralazine HCl 10 mg 07/12/20 14:18 07/22/20 20:03 Hydralazine 20 Mg/Ml Vial SLOW IVP 10 mg Q4H PRN Administration SBP>150 Cefepime HCl 2 gm/ Sodium 100 mls @ 200 mls/hr 07/20/20 21:00 07/26/20 08:27 Chloride IVPB 100 mls Q12HR CM Administration Dexamethasone 10 mg/ Sodium 51 mls @ 100 mls/hr 07/25/20 09:00 07/26/20 08:27 Chloride IVPB 51 mls DAILY CM Administration Melatonin 3 mg 07/14/20 01:37 07/23/20 20:53 Melatonin 3 Mg Tab PO 3 mg HSPRN PRN Administration Insomnia Multivitamins 1 tab 07/13/20 09:00 07/26/20 08:27 Multivit, Therapeutic 1 Tab PO 1 tab QAM CM Administration Pantoprazole Sodium 40 mg 07/15/20 09:00 07/26/20 08:27 Pantoprazole 40 Mg Tab PO 40 mg DAILY CM Administration Promethazine HCl 6.25 mg 07/23/20 20:55 07/25/20 20:24 Promethazine Hcl 6.25 Mg/5 Ml Syrup PO 6.25 mg BIDPRN PRN Administration Cough Throat Lozenges 1 med 07/14/20 01:37 07/20/20 20:29 Cepastat Lozenges 1 Med PO 1 med Q2H PRN Administration Sore Throat Zinc Sulfate 220 mg 07/13/20 09:00 07/26/20 08:27 Zinc Sulfate 220 Mg Cap PO 220 mg DAILY CM Administration - Exam General Appearance: NAD, awake alert Eye: PERRL, anicteric sclera ENT: normocephalic atraumatic, no oropharyngeal lesions Neck: supple, symmetric, no JVD, no thyromegaly, no lymphadenopathy Heart: RRR, no gallops, no rubs, normal peripheral pulses Heart - other findings: S1, S2 Respiratory: no wheezes, tachypneic Respiratory - other findings: diminished in bases, coarse sounds Gastrointestinal: soft, non-tender, non-distended, normal bowel sounds, no palpable masses Extremities: no cyanosis, no clubbing, no edema Skin: normal turgor, no lesions Neurological: cranial nerve grossly intact, no new deficit Musculoskeletal: normal tone, normal strength, no muscle wasting Psychiatric: normal affect, A&O x 3 Hosp A/P (1) Pneumonia due to COVID-19 virus Code(s): U07.1 - COVID-19; J12.82 - PNEUMONIA DUE TO CORONAVIRUS DISEASE 2019 Status: Acute Plan: Continue Cefepime/Lovenox/Dexamethasone/Vit C/Zinc (2) Acute respiratory failure with hypoxia Code(s): J96.01 - ACUTE RESPIRATORY FAILURE WITH HYPOXIA Status: Acute Plan: Slow wean off high-flow O2, will need home O2 at d/c (3) CKD (chronic kidney disease), stage III Code(s): N18.3 - CHRONIC KIDNEY DISEASE, STAGE 3 (MODERATE) * DO NOT USE * Sta tus: Chronic (4) HTN (hypertension) Code(s): I10 - ESSENTIAL (PRIMARY) HYPERTENSION Status: Chronic Qualifiers: Hypertension type: essential hypertension Qualified Code(s): I10 - Essential (primary) hypertension - Plan continue antibiotics, marriage and family social worker, respiratory therapy, incentive spirometry, out of bed/ambulate, DVT proph w/SCDs Stable currently Continue Dexamethasone/Cefepime Continue Albuterol/Lovenox OOB/ambulate Incentive spirometer Assess for home O2 Add Phenergan cough syrup BID PRN AM lab: D-dimer, Ferritin
[2020-07-26] MEDS: Atorvastatin Calcium 40 MG TAB PO SCH (20:21)
[2020-07-26] MEDS: Aspirin 81 mg Enteric Coated Tablet PO SCH (20:21)
[2020-07-27] MEDS: PROVENTIL INHALER 6.7 G (200 INHALATIONS) INH SCH ×6 (03:13→22:36)
[2020-07-27] MEDS: cloNIDine 0.1mg/24 Hour PATCH TD SCH (03:14)
[2020-07-27] MEDS ORDERED: Lorazepam 2 MG/ML VIAL SLOW IVP SCH ×2 (05:45→07:00)
[2020-07-27] MEDS: Cholecalciferol 1,000 UNITS (25 MCG) TAB PO SCH (08:48)
[2020-07-27] MEDS: Multivit, Therapeutic 1 TAB PO SCH (08:48)
[2020-07-27] MEDS: Enoxaparin Sodium 40 MG/0.4 ML SYRINGE SC SCH ×2 (08:49→20:32)
[2020-07-27] MEDS: Zinc Sulfate 220 MG CAP PO SCH (08:49)
[2020-07-27] MEDS: Ascorbic Acid 500 mg Chewable Tablet PO SCH (08:49)
[2020-07-27] MEDS: Cefepime 2 GM in Sodium Chloride 0.9% 100 ML IVPB SCH ×2 (08:50→20:38)
--- NOTE | 2020-07-27 09:30 | PDOC.HOSPP ---
- Subjective Encounter Date: 07/27/20 Encounter Time: 09:25 Subjective: f/u for COVID PNA/hypoxic resp failure. Apparently placed on BiPAP last pm after desaturating when going to the restroom. Remains on BiPAP this am but received Ativan overnight. - Objective Vital Signs & Weight: Vital Signs (12 hours) Temp Pulse Resp BP Pulse Ox 07/27/20 08:00 92 L 07/27/20 07:28 97.7 F 98 32 H 134/80 92 L 07/27/20 04:27 91 L 07/27/20 04:00 98.0 F 80 39 H 126/84 91 L 07/27/20 03:57 77 38 H 90 L 07/27/20 00:00 105 H 32 H 86 L Weight Admit Weight 182 lb 4 oz Weight 162 lb 4.8 oz I&O: 07/26/20 07/27/20 07/28/20 06:59 06:59 06:59 Intake Total 1100 1150 Output Total 950 0 Balance 150 1150 Result Diagrams: 07/20/20 04:29 07/20/20 04:29 Additional Labs: Laboratory Tests 07/21/20 07/23/20 07/23/20 04:41 04:40 04:40 D-Dimer Greater than 20.00 H Ferritin 2520.59 H C-Reactive Protein 17.45 H 07/25/20 07/25/20 07:03 07:03 D-Dimer Ferritin 3255.52 H C-Reactive Protein 18.34 H Hospitalist ROS - Medication Medications: Active Medications Generic Name Dose Route Start Last Admin Trade Name Freq PRN Reason Stop Dose Admin Acetaminophen 650 mg 07/12/20 08:57 07/20/20 05:46 Acetaminophen 325 Mg Tab PO 650 mg Q4H PRN Administration Headache/Fever/Mild Pain (1-3) Albuterol Sulfate 2 puff 07/23/20 22:30 07/27/20 03:13 Proventil Inhaler 6.7 G (200 Inhalations) INH 2 puff [id number] CM Administration Ascorbic Acid 1,000 mg 07/13/20 09:00 07/27/20 08:49 Ascorbic Acid 500 Mg Chewable Tablet PO 1,000 mg DAILY CM Administration Aspirin 81 mg 07/12/20 21:00 07/26/20 20:21 Aspirin 81 Mg Enteric Coated Tablet PO 81 mg HS CM Administration Atorvastatin Calcium 40 mg 07/12/20 21:00 07/26/20 20:21 Atorvastatin Calcium 40 Mg Tab PO 40 mg QPM CM Administration Cholecalciferol 2,000 units 07/13/20 09:00 07/27/20 08:48 Cholecalciferol 1,000 Units (25 Mcg) Tab PO 2,000 units DAILY CM Administration Clonidine 0.1 mg 07/13/20 03:00 07/27/20 03:14 Clonidine 0.1mg/24 Hour Patch TD 0.1 mg Q7D CM Administration Dextromethorphan Polistirix 15 mg 07/23/20 20:56 07/26/20 11:44 Dextromethorphan Polistirex 30 Mg/5 Ml (89 Ml Bottle) PO 15 mg BIDPRN PRN Administration Cough Enoxaparin Sodium 40 mg 07/14/20 21:00 07/27/20 08:49 Enoxaparin Sodium 40 Mg/0.4 Ml Syringe SC 40 mg BID CM Administration Guaifenesin 400 mg 07/14/20 21:00 07/23/20 02:15 Guaifenesin 200 Mg Tab PO 400 mg Q4H PRN Administration Cough Hydralazine HCl 10 mg 07/12/20 14:18 07/22/20 20:03 Hydralazine 20 Mg/Ml Vial SLOW IVP 10 mg Q4H PRN Administration SBP>150 Cefepime HCl 2 gm/ Sodium 100 mls @ 200 mls/hr 07/20/20 21:00 07/27/20 08:50 Chloride IVPB 100 mls Q12HR CM Administration Dexamethasone 10 mg/ Sodium 51 mls @ 100 mls/hr 07/25/20 09:00 07/26/20 08:27 Chloride IVPB 51 mls DAILY CM Administration Melatonin 3 mg 07/14/20 01:37 07/23/20 20:53 Melatonin 3 Mg Tab PO 3 mg HSPRN PRN Administration Insomnia Multivitamins 1 tab 07/13/20 09:00 07/27/20 08:48 Multivit, Therapeutic 1 Tab PO 1 tab QAM CM Administration Pantoprazole Sodium 40 mg 07/15/20 09:00 07/27/20 08:49 Pantoprazole 40 Mg Tab PO 40 mg DAILY CM Administration Promethazine HCl 6.25 mg 07/23/20 20:55 07/25/20 20:24 Promethazine Hcl 6.25 Mg/5 Ml Syrup PO 6.25 mg BIDPRN PRN Administration Cough Throat Lozenges 1 med 07/14/20 01:37 07/20/20 20:29 Cepastat Lozenges 1 Med PO 1 med Q2H PRN Administration Sore Throat Zinc Sulfate 220 mg 07/13/20 09:00 07/27/20 08:49 Zinc Sulfate 220 Mg Cap PO 220 mg DAILY CM Administration - Exam General - other findings: somnolent, sedate on BiPAP Eye: PERRL, anicteric sclera ENT: normocephalic atraumatic, no oropharyngeal lesions Neck: supple, symmetric, no JVD, no thyromegaly, no lymphadenopathy Heart: RRR, no gallops, no rubs, normal peripheral pulses Heart - other findings: S1, S2 Respiratory: tachypneic Respiratory - other findings: coarse bilat, diminished Gastrointestinal: soft, non-tender, non-distended, normal bowel sounds, no palpable masses Extremities: no cyanosis, no clubbing, no edema Skin: normal turgor, no lesions Neurological: cranial nerve grossly intact, no new deficit Musculoskeletal: normal tone, normal strength Psychiatric: somnolent, lethargic Hosp A/P (1) Pneumonia due to COVID-19 virus Code(s): U07.1 - COVID-19; J12.82 - PNEUMONIA DUE TO CORONAVIRUS DISEASE 2019 Status: Acute Plan: Continue supportive mgmt, Dexamethasone/Albuterol/Vit C/Zinc/BiPAP/Cefepime (2) Acute respiratory failure with hypoxia Code(s): J96.01 - ACUTE RESPIRATORY FAILURE WITH HYPOXIA Status: Acute Plan: Remains on BiPAP NIMV, continue O2 support, wean as clinically indicated (3) CKD (chronic kidney disease), stage III Code(s): N18.3 - CHRONIC KIDNEY DISEASE, STAGE 3 (MODERATE) * DO NOT USE * Status: Chronic (4) HTN (hypertension) Code(s): I10 - ESSENTIAL (PRIMARY) HYPERTENSION Status: Chronic Qualifiers: Hypertension type: essential hypertension Qualified Code(s): I10 - Essential (primary) hypertension - Plan plan discussed w/ family, continue antibiotics, 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
[2020-07-27] MEDS: Dexamethasone 10 MG in Sodium Chloride 0.9% 50 ML IVPB SCH (10:08)
--- NOTE | 2020-07-27 10:39 | CON ---
DATE OF CONSULTATION: 07/27/2020 REASON FOR CONSULTATION: Respiratory failure related to COVID. HISTORY OF PRESENT ILLNESS: The patient is a 75-year-old male, who initially tested positive for COVID on July 03. He has been in the hospital since July 12. He has generally been on high-flow oxygen. Last night, he decompensated after his oxygen was inadvertently taken off. He is now on BiPAP. I am told he was completely lucid yesterday. However, he was given some sedative last night and is now very somnolent. PAST MEDICAL HISTORY: Hypertension and hyperlipidemia. PAST SURGICAL HISTORY: None. ALLERGIES: NONE. MEDICATIONS: Prior to admission: 1. Clonidine. 2. Multivitamin. 3. Claritin. 4. [place]. 5. Lipitor. 6. Aspirin. SOCIAL HISTORY: Nonsmoker. Does not consume alcohol. FAMILY MEDICAL HISTORY: Unremarkable. REVIEW OF SYSTEMS: Cannot be obtained as he is sleeping. CURRENT MEDICATIONS: These were reviewed. See active medication section of the chart. Of note, as far as steroids are concerned, he is on dexamethasone 10 mg daily through an IV drip. He is on enoxaparin for anticoagulation. PHYSICAL EXAMINATION: VITAL SIGNS: Heart rate 98, temperature 97.7, respiratory rate in the low 30s. He is on BiPAP at 60% oxygen. Blood pressure is 134/80. GENERAL: He is an elderly gentleman, who is sedated on noninvasive mechanical ventilation. HEENT: Unremarkable. NECK: No adenopathy or JVD. LUNGS: Inspiratory crackles. CARDIAC: S1 and S2. Regular. ABDOMEN: Soft. EXTREMITIES: No edema. LABORATORY DATA: Most recent labs were reviewed. His chest x-ray demonstrates diffuse bilateral infiltrates. ASSESSMENT: 1. COVID-19 pneumonia with continued hypoxic respiratory failure. 2. Advanced age. PLAN: At this point, I would be very pessimistic that he will survive this. He is DNR. I think the appropriate treatment with the steroids and anticoagulation has been undertaken. I do think that he has been positive for longer than 20 days, so isolation can be discontinued. I spoke with the patient's son. Job ID: [id number]
[2020-07-27] MEDS: Acetaminophen 325 MG TAB PO PRN (12:40)
--- NOTE | 2020-07-27 12:48 | PDOC.PALCO ---
Palliative Care Consult - Consult Details Requesting Physician: Andra/Hospitalist Reason for Consult: goals of care, family support Family Members Present: patient Reyna and son Daljit - Pertinent HPI 75 year old male who tested Covid + July 03, and had an increase in progression of shortness of breath and worsening cough. Presented to the emergency room for evaluation 07/12/2020. Chest x-ray identified bilateral infiltrates consistent with Covid pneumonia. Chest negative for pulmonary embolism. He de compensated in the emergency room with sats dropping to 60%, placed on Bipap and admitted to [facility]. During course of stay was improving and ambulating in room, had transitioned to high flow O2 and O2via [place]. evening of 07/27 desaturated and was placed on Bipap and given Ativan to mitigate shortness of breath and anxiety. Family called to bedside secondary to decline. Received Abx, steroids, and DVT prophylaxis. Radiology continues to show bilateral interstitial and alveolar opacity. Baseline is a health male, active. Lives independently with his . - Pertinent PMH HTN, HDL - Social History Smoking Status: Never smoker Smoking: no tobacco exposure Alcohol Use: none Drug Use History: none Living Situation: independent, - Medications MAR Reviewed: Yes - Allergies Allergies/Adverse Reactions: Allergies Allergy/AdvReac Type Severity Reaction Status Date / Time No Known Allergies Allergy Verified 11/18/19 11:34 - Subjective Bipap in place, somnolent. Non participatory in exam. Bipap in place - ROS Non Response: due to mental status - Objective Vital Signs: Vital Signs - Most Recent Temp Pulse Resp BP Pulse Ox 98.4 F 80 22 H 131/65 95 07/27/20 11:54 07/27/20 11:54 07/27/20 11:54 07/27/20 11:54 07/27/20 11:54 Palliative Performance Scale: 30 - Physical Exam Constitutional: ill appearing HEENT: EOMI, moist MMs Respiratory: diminished lung sound, labored respirations, tachypnea Deviation from normal: mildly adventicious bilaterally Cardiovascular: RRR Gastrointestinal: soft, non-tender, positive bowel sounds Genitourinary: incontinent Musculoskeletal: no cyanosis, no clubbing, pulses present Neurology: no focal deficits Skin: cap refill <2 seconds, no lesions, no rash Deviation from normal: lethargic - Problem List (1) Palliative care encounter Code(s): Contreras51.5 - ENCOUNTER FOR PALLIATIVE CARE Current Visit: Yes Status: Acute (2) Acute respiratory failure with hypoxia Code(s): J96.01 - ACUTE RESPIRATORY FAILURE WITH HYPOXIA Current Visit: Yes Status: Acute (3) Pneumonia due to COVID-19 virus Code(s): U07.1 - COVID-19; J12.82 - PNEUMONIA DUE TO CORONAVIRUS DISEASE 2019 Current Visit: Yes Status: Acute (4) CKD (chronic kidney disease), stage III Code(s): N18.3 - CHRONIC KIDNEY DISEASE, STAGE 3 (MODERATE) * DO NOT USE * Current Visit: No Status: Chronic (5) HTN (hypertension) Code(s): I10 - ESSENTIAL (PRIMARY) HYPERTENSION Current Visit: No Status: Chronic Qualifiers: Hypertension type: essential hypertension Qualified Code(s): I10 - Esse ntial (primary) hypertension - Plan/Recommendations Plan: Met with family at bedside. Short life review. Patient was a [employer], . His children and grandchildren live close. He is active and spends time with his family. Confirmed DNAR status. Family is hopeful that respiratory status improves today. Reviewed Bipap, and hope to wean and transition to Highflow. Discussed revisiting goal of care depending on respiratory status. Emotional support and therapeutic listening. [50] minutes spent on this encounter with >50% of the time in counseling and coordination of care. Thank you for this very appropriate consult.
[2020-07-27] MEDS: Lorazepam 2 MG/ML VIAL SLOW IVP PRN (13:00)
[2020-07-27] MEDS: Aspirin 81 mg Enteric Coated Tablet PO SCH (20:32)
[2020-07-27] MEDS: Atorvastatin Calcium 40 MG TAB PO SCH (20:33)
[2020-07-28] MEDS: PROVENTIL INHALER 6.7 G (200 INHALATIONS) INH SCH ×6 (02:17→22:47)
[2020-07-28] MEDS: Multivit, Therapeutic 1 TAB PO SCH (08:07)
[2020-07-28] MEDS: Zinc Sulfate 220 MG CAP PO SCH (08:07)
[2020-07-28] MEDS: Cholecalciferol 1,000 UNITS (25 MCG) TAB PO SCH (08:07)
[2020-07-28] MEDS: Ascorbic Acid 500 mg Chewable Tablet PO SCH (08:07)
[2020-07-28] MEDS: Cefepime 2 GM in Sodium Chloride 0.9% 100 ML IVPB SCH ×2 (08:08→21:31)
[2020-07-28] MEDS: Enoxaparin Sodium 40 MG/0.4 ML SYRINGE SC SCH ×2 (08:08→21:32)
[2020-07-28] MEDS: Dexamethasone 10 MG in Sodium Chloride 0.9% 50 ML IVPB SCH (09:17)
--- NOTE | 2020-07-28 16:08 | PRG ---
DATE OF SERVICE: 07/28/2020 SUBJECTIVE: Mr. Mendoza is a new man today. He is awake, alert, very conversant. OBJECTIVE: VITAL SIGNS: Temperature 98.2, pulse 82, respirations 28, O2 saturation 92% on 59% high-flow oxygen, blood pressure 144/70. HEENT: Unremarkable. NECK: No JVD. LUNGS: Fairly clear anteriorly. CARDIAC: S1 and S2. Regular. ABDOMEN: Soft. EXTREMITIES: No edema. ASSESSMENT: 1. COVID-19 pneumonia. 2. Acute hypoxic respiratory failure. PLAN: Basically just needs to continue weaning off the oxygen. He is on steroids. He should improve with time. We will available as needed. Job ID: [id number]
--- NOTE | 2020-07-28 17:47 | PDOC.HOSPP ---
- Subjective Encounter Date: 07/28/20 Encounter Time: 17:45 Subjective: Patient was seen and evaluated today at the bedside. His son was present when I visited with him. This is a very pleasant but unfortunate 75-year-old who has been for the most part healthy was admitted to the hospital for COVID-19 pneumonia. He did well initially but unfortunately he started regressing and he was placed back on high flow nasal cannula. He does have some exertional type dyspnea but overall he thinks that he is better. He has been seen by pulmonary services. Plan is to continue to wean him off of the high flow. - Objective Vital Signs & Weight: Vital Signs (12 hours) Temp Pulse Resp BP Pulse Ox 07/28/20 16:00 98.2 F 80 20 125/64 96 07/28/20 14:10 82 28 H 144/70 H 92 L 07/28/20 12:00 98.2 F 78 18 137/65 90 L 07/28/20 10:15 70 13 131/64 94 L 07/28/20 09:22 91 L 07/28/20 09:10 88 L 07/28/20 08:07 96 07/28/20 08:00 98.0 F 76 20 118/56 L 96 Weight Admit Weight 182 lb 4 oz Weight 162 lb 4.8 oz I&O: 07/27/20 07/28/20 07/29/20 06:59 06:59 06:59 Intake Total 1150 600 Output Total 0 Balance 1150 600 Result Diagrams: 07/20/20 04:29 07/20/20 04:29 Radiology Reviewed by me: Yes EKG Reviewed by me: Yes Hospitalist ROS - Review of Systems Constitutional: reports: weakness, malaise Respiratory: reports: shortness of breath, SOB with excertion Cardiovascular: reports: paroxysmal noc. dyspnea Gastrointestinal: reports: nausea - Medication Medications: Active Medications Generic Name Dose Route Start Last Admin Trade Name Freq PRN Reason Stop Dose Admin Acetaminophen 650 mg 07/12/20 08:57 07/27/20 12:40 Acetaminophen 325 Mg Tab PO 650 mg Q4H PRN Administration Headache/Fever/Mild Pain (1-3) Albuterol Sulfate 2 puff 07/23/20 22:30 07/28/20 15:22 Proventil Inhaler 6.7 G (200 Inhalations) INH 2 puff [id number] CM Administration Ascorbic Acid 1,000 mg 07/13/20 09:00 07/28/20 08:07 Ascorbic Acid 500 Mg Chewable Tablet PO 1,000 mg DAILY CM Administration Aspirin 81 mg 07/12/20 21:00 07/27/20 20:32 Aspirin 81 Mg Enteric Coated Tablet PO 81 mg HS CM Administration Atorvastatin Calcium 40 mg 07/12/20 21:00 07/27/20 20:33 Atorvastatin Calcium 40 Mg Tab PO 40 mg QPM CM Administration Cholecalciferol 2,000 units 07/13/20 09:00 07/28/20 08:07 Cholecalciferol 1,000 Units (25 Mcg) Tab PO 2,000 units DAILY CM Administration Clonidine 0.1 mg 07/13/20 03:00 07/27/20 03:14 Clonidine 0.1mg/24 Hour Patch TD 0.1 mg Q7D CM Administration Dextromethorphan Polistirix 15 mg 07/23/20 20:56 07/26/20 11:44 Dextromethorphan Polistirex 30 Mg/5 Ml (89 Ml Bottle) PO 15 mg BIDPRN PRN Administration Cough Enoxaparin Sodium 40 mg 07/14/20 21:00 07/28/20 08:08 Enoxaparin Sodium 40 Mg/0.4 Ml Syringe SC 40 mg BID CM Administration Guaifenesin 400 mg 07/14/20 21:00 07/23/20 02:15 Guaifenesin 200 Mg Tab PO 400 mg Q4H PRN Administration Cough Hydralazine HCl 10 mg 07/12/20 14:18 07/22/20 20:03 Hydralazine 20 Mg/Ml Vial SLOW IVP 10 mg Q4H PRN Administration SBP>150 Cefepime HCl 2 gm/ Sodium 100 mls @ 200 mls/hr 07/20/20 21:00 07/28/20 08:08 Chloride IVPB 100 mls Q12HR CM Administration Dexamethasone 10 mg/ Sodium 51 mls @ 100 mls/hr 07/25/20 09:00 07/28/20 09:17 Chloride IVPB 51 mls DAILY CM Administration Lorazepam 0.5 mg 07/27/20 11:22 07/27/20 13:00 Lorazepam 2 Mg/Ml Vial SLOW IVP 0.5 mg Q6H PRN Administration Anxiety/Agitation Melatonin 3 mg 07/14/20 01:37 07/23/20 20:53 Melatonin 3 Mg Tab PO 3 mg HSPRN PRN Administration Insomnia Multivitamins 1 tab 07/13/20 09:00 07/28/20 08:07 Multivit, Therapeutic 1 Tab PO 1 tab QAM CM Administration Pantoprazole Sodium 40 mg 07/15/20 09:00 07/28/20 08:07 Pantoprazole 40 Mg Tab PO 40 mg DAILY CM Administration Promethazine HCl 6.25 mg 07/23/20 20:55 07/25/20 20:24 Promethazine Hcl 6.25 Mg/5 Ml Syrup PO 6.25 mg BIDPRN PRN Administration Cough Throat Lozenges 1 med 07/14/20 01:37 07/20/20 20:29 Cepastat Lozenges 1 Med PO 1 med Q2H PRN Administration Sore Throat Zinc Sulfate 220 mg 07/13/20 09:00 07/28/20 08:07 Zinc Sulfate 220 Mg Cap PO 220 mg DAILY CM Administration - Exam General Appearance: awake alert, ill appearing Eye: PERRL, anicteric sclera ENT: normocephalic atraumatic, no oropharyngeal lesions Neck: supple, symmetric, no JVD, no thyromegaly, no lymphadenopathy Heart: RRR, no murmur, no gallops, no rubs, normal peripheral pulses Respiratory: normal chest expansion, rales, rhonchi, tachypneic, wheezes Gastrointestinal: soft, non-tender, non-distended, normal bowel sounds, no palpable masses Neurological: cranial nerve grossly intact, normal sensation to touch Psychiatric: normal affect, normal behavior, A&O x 3 Hosp A/P (1) Acute respiratory failure with hypoxia Code(s): J96.01 - ACUTE RESPIRATORY FAILURE WITH HYPOXIA Status: Acute Plan: Patient is on high flow nasal cannula and this is being weaned slowly. His respiratory failure secondary to COVID-19 pneumonia. (2) Pneumonia due to COVID-19 virus Code(s): U07.1 - COVID-19; J12.82 - PNEUMONIA DUE TO CORONAVIRUS DISEASE 2019 Status: Acute Plan: Continue supportive care as above. (3) HLD (hyperlipidemia) Code(s): E78.5 - HYPERLIPIDEMIA, UNSPECIFIED Status: Chronic Qualifiers: Hyperlipidemia type: unspecified Qualified Code(s): E78.5 - Hyperlipidemia, unspecified (4) HTN (hypertension) Code(s): I10 - ESSENTIAL (PRIMARY) HYPERTENSION Status: Chronic Qualifiers: Hypertension type: essential hypertension Qualified Code(s): I10 - Essential (primary) hypertension - Plan old records reviewed/req, PT/OT, respiratory therapy, incentive spirometry, out of bed/ambulate
[2020-07-28] MEDS: Aspirin 81 mg Enteric Coated Tablet PO SCH (21:32)
[2020-07-28] MEDS: Atorvastatin Calcium 40 MG TAB PO SCH (21:32)
[2020-07-29] MEDS: Lorazepam 2 MG/ML VIAL SLOW IVP PRN (00:53)
[2020-07-29] MEDS: PROVENTIL INHALER 6.7 G (200 INHALATIONS) INH SCH ×6 (02:04→23:03)
[2020-07-29 05:17] LABS: #Eosinphils 0.3 thou/uL (0.0-0.7); #Lymphocytes 0.7 thou/uL (1.20-3.40); #Neutrophils 13.7 thou/uL (1.40-6.50); %Eosinophils 1.9 % (0.0-10.0); %Lymphocytes 4.7 % (21.0-51.0); %Monocytes 6.2 % (0.0-10.0); %Neutrophils 87.2 % (42.0-75.0); Hemoglobin 14.3 g/dL (14.0-18.0); Mean Corpuscular Hemoglobin 30.2 pg (27.0-31.0); Mean Corpuscular Volume 88.9 fL (78.0-98.0); Mean Platelet Volume 8.5 fL (7.4-10.4); Platelet Count 271 thou/uL (130-400); RBC Distribution Width 11.6 % (11.5-14.5); Red Blood Cell (RBC) Count 4.74 mill/uL (4.70-6.10); White Blood Cell (WBC) Count 15.7 thou/uL (4.8-10.8)
[2020-07-29 05:33] LABS: Anion Gap 15 mmol/L (10-20); BUN (Urea Nitrogen) 28 mg/dL (8.4-25.7); CRP (Inflammatory) 6.18 mg/dL (= or < 0.5); Calc. Creatinine Clearance 72 mL/min (70-130); Calcium 8.7 mg/dL (7.8-10.44); Carbon Dioxide 23 mmol/L (23-31); Chloride 99 mmol/L (98-107); Glucose 120 mg/dL (83-110); Potassium 4.5 mmol/L (3.5-5.1); Sodium 132 mmol/L (136-145)
--- NOTE | 2020-07-29 07:53 | RAD ---
XR Chest 1 View History: Covid pneumonia Comparison: Radiograph July 24, 2020 Findings: Extensive airspace consolidation is relatively similar. No pneumothorax. No definite pneumo mediastinum although there is somewhat linear lucency along the left cardiac border. No significant extensive emphysema. No acute osseous abnormality. Impression: Similar examination of the chest without improved lung aeration.
[2020-07-29] MEDS: Ascorbic Acid 500 mg Chewable Tablet PO SCH (08:59)
[2020-07-29] MEDS: Cefepime 2 GM in Sodium Chloride 0.9% 100 ML IVPB SCH ×2 (09:00→21:35)
[2020-07-29] MEDS: Enoxaparin Sodium 40 MG/0.4 ML SYRINGE SC SCH ×2 (09:00→21:30)
[2020-07-29] MEDS: Multivit, Therapeutic 1 TAB PO SCH (09:00)
[2020-07-29] MEDS: Cholecalciferol 1,000 UNITS (25 MCG) TAB PO SCH (09:00)
[2020-07-29] MEDS: Zinc Sulfate 220 MG CAP PO SCH (09:00)
[2020-07-29] MEDS ORDERED: Dexamethasone 10 MG/ML VIAL SLOW IVP SCH (09:30)
[2020-07-29] MEDS ORDERED: Chloraseptic Spray 180 ml Bottle PO PRN (09:48)
[2020-07-29] MEDS: Dexamethasone 10 MG in Sodium Chloride 0.9% 50 ML IVPB SCH (10:26)
[2020-07-29] MEDS ORDERED: Furosemide 100 MG/10 ML VIAL SLOW IVP SCH (10:30)
[2020-07-29] MEDS: Lidocaine Viscous Sol 2% 15 ml UD Cup SSW SCH ×3 (11:34→21:38)
--- NOTE | 2020-07-29 13:47 | PDOC.HOSPP ---
- Subjective Encounter Date: 07/29/20 Encounter Time: 13:45 Subjective: His chest x-ray without any significant improvement. He remains on a high flow nasal cannula today. He does still get conversational and exertional dyspnea. His son was at the bedside when I arrived. I have encouraged the patient to change to a prone position frequently. I am going to give him a one-time dose of Lasix and will reassess the need for it in the next 24 hours. - Objective Vital Signs & Weight: Vital Signs (12 hours) Temp Pulse Resp BP BP BP Pulse Ox 07/29/20 11:29 98.7 F 84 32 H 141/68 H 94 L 07/29/20 10:30 81 24 H 141/68 H 96 07/29/20 08:44 99.4 F 87 23 H 131/60 97 07/29/20 07:18 89 L 07/29/20 06:00 82 122/67 95 07/29/20 04:00 96.9 F L 75 20 176/75 H 89 L 07/29/20 02:00 123/58 L 89 L Weight Admit Weight 182 lb 4 oz Weight 162 lb 4.8 oz I&O: 07/28/20 07/29/20 07/30/20 06:59 06:59 06:59 Intake Total 600 1160 Output Total 250 Balance 600 910 Result Diagrams: 07/29/20 05:01 07/29/20 05:01 Radiology Reviewed by me: Yes EKG Reviewed by me: Yes Hospitalist ROS - Review of Systems Constitutional: reports: weakness Respiratory: reports: shortness of breath, SOB with excertion, wheezing - Medication Medications: Active Medications Generic Name Dose Route Start Last Admin Trade Name Freq PRN Reason Stop Dose Admin Acetaminophen 650 mg 07/12/20 08:57 07/27/20 12:40 Acetaminophen 325 Mg Tab PO 650 mg Q4H PRN Administration Headache/Fever/Mild Pain (1-3) Albuterol Sulfate 2 puff 07/23/20 22:30 07/29/20 10:57 Proventil Inhaler 6.7 G (200 Inhalations) INH 2 puff [id number] CM Administration Ascorbic Acid 1,000 mg 07/13/20 09:00 07/29/20 08:59 Ascorbic Acid 500 Mg Chewable Tablet PO 1,000 mg DAILY CM Administration Aspirin 81 mg 07/12/20 21:00 07/28/20 21:32 Aspirin 81 Mg Enteric Coated Tablet PO 81 mg HS CM Administration Atorvastatin Calcium 40 mg 07/12/20 21:00 07/28/20 21:32 Atorvastatin Calcium 40 Mg Tab PO 40 mg QPM CM Administration Cholecalciferol 2,000 units 07/13/20 09:00 07/29/20 09:00 Cholecalciferol 1,000 Units (25 Mcg) Tab PO 2,000 units DAILY CM Administration Clonidine 0.1 mg 07/13/20 03:00 07/27/20 03:14 Clonidine 0.1mg/24 Hour Patch TD 0.1 mg Q7D CM Administration Dextromethorphan Polistirix 15 mg 07/23/20 20:56 07/26/20 11:44 Dextromethorphan Polistirex 30 Mg/5 Ml (89 Ml Bottle) PO 15 mg BIDPRN PRN Administration Cough Enoxaparin Sodium 40 mg 07/14/20 21:00 07/29/20 09:00 Enoxaparin Sodium 40 Mg/0.4 Ml Syringe SC 40 mg BID CM Administration Furosemide 80 mg 07/29/20 10:30 07/29/20 11:34 Furosemide 100 Mg/10 Ml Vial SLOW IVP 07/29/20 14:00 80 mg NOW CM Administration Guaifenesin 400 mg 07/14/20 21:00 07/23/20 02:15 Guaifenesin 200 Mg Tab PO 400 mg Q4H PRN Administration Cough Hydralazine HCl 10 mg 07/12/20 14:18 07/22/20 20:03 Hydralazine 20 Mg/Ml Vial SLOW IVP 10 mg Q4H PRN Administration SBP>150 Cefepime HCl 2 gm/ Sodium 100 mls @ 200 mls/hr 07/20/20 21:00 07/29/20 09:00 Chloride IVPB 100 mls Q12HR CM Administration Lidocaine HCl 15 ml 07/29/20 11:30 07/29/20 11:34 Lidocaine Viscous Jennifer 2% 15 Ml Ud Cup SSW 15 ml ACHS CM Administration Lorazepam 0.5 mg 07/27/20 11:22 07/29/20 00:53 Lorazepam 2 Mg/Ml Vial SLOW IVP 0.5 mg Q6H PRN Administration Anxiety/Agitation Melatonin 3 mg 07/14/20 01:37 07/23/20 20:53 Melatonin 3 Mg Tab PO 3 mg HSPRN PRN Administration Insomnia Multivitamins 1 tab 07/13/20 09:00 07/29/20 09:00 Multivit, Therapeutic 1 Tab PO 1 tab QAM CM Administration Pantoprazole Sodium 40 mg 07/15/20 09:00 07/29/20 09:00 Pantoprazole 40 Mg Tab PO 40 mg DAILY CM Administration Promethazine HCl 6.25 mg 07/23/20 20:55 07/25/20 20:24 Promethazine Hcl 6.25 Mg/5 Ml Syrup PO 6.25 mg BIDPRN PRN Administration Cough Throat Lozenges 1 med 07/14/20 01:37 07/20/20 20:29 Cepastat Lozenges 1 Med PO 1 med Q2H PRN Administration Sore Throat Zinc Sulfate 220 mg 07/13/20 09:00 07/29/20 09:00 Zinc Sulfate 220 Mg Cap PO 220 mg DAILY CM Administration - Exam General Appearance: awake alert, ill appearing ENT: normocephalic atraumatic Neck: supple, symmetric, no JVD, no thyromegaly Heart: RRR, no murmur, no gallops, no rubs Respiratory: rales, rhonchi, tachypneic, wheezes Gastrointestinal: soft, non-tender, non-distended, normal bowel sounds Neurological: cranial nerve grossly intact, normal sensation to touch Musculoskeletal: normal tone Psychiatric: normal affect, normal behavior, A&O x 3 Hosp A/P (1) Acute respiratory failure with hypoxia Code(s): J96.01 - ACUTE RESPIRATORY FAILURE WITH HYPOXIA Status: Acute (2) Pneumonia due to COVID-19 virus Code(s): U07.1 - COVID-19; J12.82 - PNEUMONIA DUE TO CORONAVIRUS DISEASE 2019 Status: Acute (3) HLD (hyperlipidemia) Code(s): E78.5 - HYPERLIPIDEMIA, UNSPECIFIED Status: Chronic Qualifiers: Hyperlipidemia type: unspecified Qualified Code(s): E78.5 - Hyperlipidemia, unspecified (4) HTN (hypertension) Code(s): I10 - ESSENTIAL (PRIMARY) HYPERTENSION Status: Chronic Qualifiers: Hypertension type: essential hypertension Qualified Code(s): I10 - Essential (primary) hypertension - Plan old records reviewed/req, plan discussed w/ family, PT/OT, respiratory therapy, incentive spirometry 07/29/2020. He remains on a high flow nasal cannula today. His repeat chest x-ray with no significant improvement. His prognosis is guarded.
[2020-07-29] MEDS ORDERED: Furosemide 40 MG/4 ML VIAL SLOW IVP SCH (14:00)
--- NOTE | 2020-07-29 14:01 | PDOC.PALPN ---
Palliative Progress Note - Subjective Awake, alert and conversive. On High flow. Appetite returning. and son at bedside. Mild dyspnea noted with minimal conversation. - Objective Vital Signs: Vital Signs - Most Recent Temp Pulse Resp BP Pulse Ox 98.7 F 84 32 H 141/68 H 94 L 07/29/20 11:29 07/29/20 11:29 07/29/20 11:29 07/29/20 11:29 07/29/20 11:29 - Physical Exam Constitutional: NAD, ill appearing HEENT: EOMI, moist MMs, PERRLA Respiratory: tachypnea Cardiovascular: no significant murmur, RRR Gastrointestinal: soft, non-tender, positive bowel sounds Genitourinary: continent Musculoskeletal: no cyanosis, no clubbing Neurology: moves all 4 limbs, no focal deficits Skin: cap refill <2 seconds, no lesions, no rash Psychiatric: A&O x 3, normal affect, normal mood - Assessment (1) Palliative care encounter Code(s): Z51.5 - ENCOUNTER FOR PALLIATIVE CARE Current Visit: Yes Status: Acute (2) Acute respiratory failure with hypoxia Code(s): J96.01 - ACUTE RESPIRATORY FAILURE WITH HYPOXIA Current Visit: Yes Status: Acute (3) Pneumonia due to COVID-19 virus Code(s): U07.1 - COVID-19; J12.82 - PNEUMONIA DUE TO CORONAVIRUS DISEASE 2019 Current Visit: Yes Status: Acute (4) CKD (chronic kidney disease), stage III Code(s): N18.3 - CHRONIC KIDNEY DISEASE, STAGE 3 (MODERATE) * DO NOT USE * Current Visit: No Status: Chronic (5) HTN (hypertension) Code(s): I10 - ESSENTIAL (PRIMARY) HYPERTENSION Current Visit: No Status: Chronic Qualifiers: Hypertension type: essential hypertension Qualified Code(s): I10 - Essential (primary) hypertension - Plan Plan: Discussed slow recovery. Hopeful to continue to wean off Highflow. Prognosis disease assist in relation to Covid and recovery. Goal to return to home setting with family, open to PT/OT if needed. Discussed Home O2, consideration for home health to promote buddhism toward patient original healthy baseline. Palliative care will sign off as goal of care addressed, family support. If we can assist in the future please re consult our team to readdress goal of care, coping, complex decision making, prognosis disease assist. Thank you for this very appropriate consult and allowing Palliative Care to participate in the care of this delightful gentleman and his family. [25] minutes spent on this encounter with >50% of the time in counseling and coordination of care. - ROS Constitutional: alert, weakness ENT: dry mouth, difficulty swallowing Respiratory: shortness of breath, shortness of breath with extertion Cardiology: other (Denies chast pain, palpitations) Gastrointestinal: other (Deneis nausea, vomiting) Neurological: other (Negative for confusion, dizziness)
[2020-07-29] MEDS: Nystatin 500,000 UNITS/5 ML UDCUP SSW SCH (21:29)
[2020-07-29] MEDS: Atorvastatin Calcium 40 MG TAB PO SCH (21:29)
[2020-07-29] MEDS: Aspirin 81 mg Enteric Coated Tablet PO SCH (21:29)
[2020-07-29] MEDS: Melatonin 3 MG TAB PO PRN (21:59)
[2020-07-30] MEDS: PROVENTIL INHALER 6.7 G (200 INHALATIONS) INH SCH ×6 (03:39→22:39)
[2020-07-30] MEDS: Nystatin 500,000 UNITS/5 ML UDCUP SSW SCH ×4 (07:33→21:08)
[2020-07-30] MEDS: Lidocaine Viscous Sol 2% 15 ml UD Cup SSW SCH ×4 (07:33→21:08)
[2020-07-30] MEDS: Ascorbic Acid 500 mg Chewable Tablet PO SCH (07:33)
[2020-07-30] MEDS: Multivit, Therapeutic 1 TAB PO SCH (07:34)
[2020-07-30] MEDS: Enoxaparin Sodium 40 MG/0.4 ML SYRINGE SC SCH ×2 (07:34→21:09)
[2020-07-30] MEDS: Cholecalciferol 1,000 UNITS (25 MCG) TAB PO SCH (07:34)
[2020-07-30] MEDS: Zinc Sulfate 220 MG CAP PO SCH (07:34)
[2020-07-30] MEDS: Cefepime 2 GM in Sodium Chloride 0.9% 100 ML IVPB SCH ×2 (07:40→21:08)
[2020-07-30] MEDS ORDERED: Dexamethasone 10 MG/ML VIAL SLOW IVP SCH (09:00)
[2020-07-30] MEDS ORDERED: Sodium Chloride 0.65% Nasal 44 ML BOT EA NARE PRN (16:13)
--- NOTE | 2020-07-30 16:20 | PDOC.HOSPP ---
- Subjective Encounter Date: 07/30/20 Encounter Time: 16:18 Subjective: Patient was seen and evaluated at the bedside. His family were present when I visited. He remains on a high flow nasal cannula and he seems a little bit better today. He does still get hypoxic on movement. - Objective Vital Signs & Weight: Vital Signs (12 hours) Temp Pulse Resp BP BP Pulse Ox 07/30/20 15:13 98.2 F 88 30 H 141/66 H 93 L 07/30/20 14:20 98 38 H 141/66 H 93 L 07/30/20 12:09 98 35 H 139/65 93 L 07/30/20 11:03 99.1 F 95 32 H 132/73 96 07/30/20 09:47 94 34 H 132/73 95 07/30/20 08:00 94 L 07/30/20 07:23 99.0 F 90 30 H 153/72 H 95 Weight Admit Weight 182 lb 4 oz Weight 162 lb 4.8 oz I&O: 07/29/20 07/30/20 07/31/20 06:59 06:59 06:59 Intake Total 1160 870 Output Total 250 1920 Balance 910 -1050 Result Diagrams: 07/29/20 05:01 07/29/20 05:01 Radiology Reviewed by me: Yes EKG Reviewed by me: Yes Hospitalist ROS - Review of Systems Constitutional: reports: weakness Respiratory: reports: cough, dry, shortness of breath Neurological: reports: weakness - Medication Medications: Active Medications Generic Name Dose Route Start Last Admin Trade Name Freq PRN Reason Stop Dose Admin Acetaminophen 650 mg 07/12/20 08:57 07/27/20 12:40 Acetaminophen 325 Mg Tab PO 650 mg Q4H PRN Administration Headache/Fever/Mild Pain (1-3) Albuterol Sulfate 2 puff 07/23/20 22:30 07/30/20 15:33 Proventil Inhaler 6.7 G (200 Inhalations) INH 2 puff [id number] CM Administration Ascorbic Acid 1,000 mg 07/13/20 09:00 07/30/20 07:33 Ascorbic Acid 500 Mg Chewable Tablet PO 1,000 mg DAILY CM Administration Aspirin 81 mg 07/12/20 21:00 07/29/20 21:29 Aspirin 81 Mg Enteric Coated Tablet PO 81 mg HS CM Administration Atorvastatin Calcium 40 mg 07/12/20 21:00 07/29/20 21:29 Atorvastatin Calcium 40 Mg Tab PO 40 mg QPM CM Administration Cholecalciferol 2,000 units 07/13/20 09:00 07/30/20 07:34 Cholecalciferol 1,000 Units (25 Mcg) Tab PO 2,000 units DAILY CM Administration Clonidine 0.1 mg 07/13/20 03:00 07/27/20 03:14 Clonidine 0.1mg/24 Hour Patch TD 0.1 mg Q7D CM Administration Dextromethorphan Polistirix 15 mg 07/23/20 20:56 07/26/20 11:44 Dextromethorphan Polistirex 30 Mg/5 Ml (89 Ml Bottle) PO 15 mg BIDPRN PRN Administration Cough Enoxaparin Sodium 40 mg 07/14/20 21:00 07/30/20 07:34 Enoxaparin Sodium 40 Mg/0.4 Ml Syringe SC 40 mg BID CM Administration Guaifenesin 400 mg 07/14/20 21:00 07/23/20 02:15 Guaifenesin 200 Mg Tab PO 400 mg Q4H PRN Administration Cough Hydralazine HCl 10 mg 07/12/20 14:18 07/22/20 20:03 Hydralazine 20 Mg/Ml Vial SLOW IVP 10 mg Q4H PRN Administration SBP>150 Cefepime HCl 2 gm/ Sodium 100 mls @ 200 mls/hr 07/20/20 21:00 07/30/20 07:40 Chloride IVPB 100 mls Q12HR CM Administration Lidocaine HCl 15 ml 07/29/20 11:30 07/30/20 11:58 Lidocaine Viscous Jennifer 2% 15 Ml Ud Cup SSW 15 ml ACHS CM Administration Lorazepam 0.5 mg 07/27/20 11:22 07/29/20 00:53 Lorazepam 2 Mg/Ml Vial SLOW IVP 0.5 mg Q6H PRN Administration Anxiety/Agitation Melatonin 3 mg 07/14/20 01:37 07/29/20 21:59 Melatonin 3 Mg Tab PO 3 mg HSPRN PRN Administration Insomnia Multivitamins 1 tab 07/13/20 09:00 07/30/20 07:34 Multivit, Therapeutic 1 Tab PO 1 tab QAM CM Administration Nystatin 500,000 units 07/29/20 21:00 07/30/20 11:58 Nystatin 500,000 Units/5 Ml Udcup SSW 500,000 units QID CM Administration Pantoprazole Sodium 40 mg 07/15/20 09:00 07/30/20 07:34 Pantoprazole 40 Mg Tab PO 40 mg DAILY CM Administration Promethazine HCl 6.25 mg 07/23/20 20:55 07/25/20 20:24 Promethazine Hcl 6.25 Mg/5 Ml Syrup PO 6.25 mg BIDPRN PRN Administration Cough Zinc Sulfate 220 mg 07/13/20 09:00 07/30/20 07:34 Zinc Sulfate 220 Mg Cap PO 220 mg DAILY CM Administration - Exam General Appearance: awake alert, ill appearing Eye: PERRL, anicteric sclera ENT: normocephalic atraumatic, no oropharyngeal lesions, moist mucosa Neck: supple, symmetric, no JVD, no thyromegaly Heart: RRR, no murmur, no gallops, no rubs Respiratory: CTAB, no wheezes, no rales, no ronchi, normal chest expansion, no tachypnea Gastrointestinal: soft, non-tender, non-distended, normal bowel sounds, no palpable masses Neurological: cranial nerve grossly intact, normal sensation to touch Psychiatric: normal affect, normal behavior, A&O x 3 Hosp A/P (1) Acute respiratory failure with hypoxia Code(s): J96.01 - ACUTE RESPIRATORY FAILURE WITH HYPOXIA Status: Acute (2) Pneumonia due to COVID-19 virus Code(s): U07.1 - COVID-19; J12.82 - PNEUMONIA DUE TO CORONAVIRUS DISEASE 2019 Status: Acute (3) HLD (hyperlipidemia) Code(s): E78.5 - HYPERLIPIDEMIA, UNSPECIFIED Status: Chronic Qualifiers: Hyperlipidemia type: unspecified Qualified Code(s): E78.5 - Hyperlipidemia, unspecified (4) HTN (hypertension) Code(s): I10 - ESSENTIAL (PRIMARY) HYPERTENSION Status: Chronic Qualifiers: Hypertension type: essential hypertension Qualified Code(s): I10 - Essential (primary) hypertension - Plan Consults: Palliative Care 07/29/2020. He remains on a high flow nasal cannula today. His repeat chest x-ray with no significant improvement. His prognosis is guarded. 07/30/2020. The patient remains on a high flow nasal cannula. He says that he feels a little bit better today. We will continue this for now and hopefully wean down as tolerated.
[2020-07-30] MEDS: Atorvastatin Calcium 40 MG TAB PO SCH (21:08)
[2020-07-30] MEDS: Aspirin 81 mg Enteric Coated Tablet PO SCH (21:12)
[2020-07-30] MEDS: Melatonin 3 MG TAB PO PRN (21:32)
[2020-07-31] MEDS: PROVENTIL INHALER 6.7 G (200 INHALATIONS) INH SCH ×6 (02:22→23:16)
[2020-07-31] MEDS: Dexamethasone 4 MG TAB PO SCH (09:11)
[2020-07-31] MEDS: Zinc Sulfate 220 MG CAP PO SCH (09:12)
[2020-07-31] MEDS: Cholecalciferol 1,000 UNITS (25 MCG) TAB PO SCH (09:13)
[2020-07-31] MEDS: Ascorbic Acid 500 mg Chewable Tablet PO SCH (09:18)
[2020-07-31] MEDS: Nystatin 500,000 UNITS/5 ML UDCUP SSW SCH ×4 (09:23→20:34)
[2020-07-31] MEDS: Lidocaine Viscous Sol 2% 15 ml UD Cup SSW SCH ×4 (09:24→20:34)
[2020-07-31] MEDS: Enoxaparin Sodium 40 MG/0.4 ML SYRINGE SC SCH ×2 (09:26→20:34)
[2020-07-31] MEDS: Multivit, Therapeutic 1 TAB PO SCH (13:26)
--- NOTE | 2020-07-31 15:16 | PDOC.HOSPP ---
- Subjective Encounter Date: 07/31/20 Encounter Time: 15:13 Subjective: Patient remains on the high flow nasal cannula with FiO2 around 50%. He reports that he is doing okay but he does still get very short of breath with any kind of exertion. His was at the bedside when I came to visit. We will continue to wean him down. Hopefully he survives this. - Objective Vital Signs & Weight: Vital Signs (12 hours) Temp Pulse Resp BP BP Pulse Ox 07/31/20 14:00 97 24 H 100 07/31/20 13:25 164/77 H 07/31/20 11:25 97.8 F 100 20 170/84 H 98 07/31/20 10:49 95 07/31/20 09:01 95 07/31/20 08:45 98.5 F 98 22 H 169/86 H 95 07/31/20 07:41 24 H 94 L 07/31/20 05:41 95 20 150/75 H 95 07/31/20 04:00 95.1 F L 99 20 135/65 95 Weight Admit Weight 182 lb 4 oz Weight 162 lb 4.8 oz I&O: 07/30/20 07/31/20 08/01/20 06:59 06:59 06:59 Intake Total 870 1380 Output Total 1920 550 Balance -1050 830 Result Diagrams: 07/29/20 05:01 07/29/20 05:01 Radiology Reviewed by me: Yes EKG Reviewed by me: Yes Hospitalist ROS - Review of Systems Constitutional: reports: weakness, malaise Respiratory: reports: cough, shortness of breath, SOB with excertion - Medication Medications: Active Medications Generic Name Dose Route Start Last Admin Trade Name Freq PRN Reason Stop Dose Admin Acetaminophen 650 mg 07/12/20 08:57 07/27/20 12:40 Acetaminophen 325 Mg Tab PO 650 mg Q4H PRN Administration Headache/Fever/Mild Pain (1-3) Albuterol Sulfate 2 puff 07/23/20 22:30 07/31/20 14:00 Proventil Inhaler 6.7 G (200 Inhalations) INH 2 puff B1OH-CT CM Administration Ascorbic Acid 1,000 mg 07/13/20 09:00 07/31/20 09:18 Ascorbic Acid 500 Mg Chewable Tablet PO 1,000 mg DAILY CM Administration Aspirin 81 mg 07/12/20 21:00 07/30/20 21:12 Aspirin 81 Mg Enteric Coated Tablet PO 81 mg HS CM Administration Atorvastatin Calcium 40 mg 07/12/20 21:00 07/30/20 21:08 Atorvastatin Calcium 40 Mg Tab PO 40 mg QPM CM Administration Cholecalciferol 2,000 units 07/13/20 09:00 07/31/20 09:13 Cholecalciferol 1,000 Units (25 Mcg) Tab PO 2,000 units DAILY CM Administration Clonidine 0.1 mg 07/13/20 03:00 07/27/20 03:14 Clonidine 0.1mg/24 Hour Patch TD 0.1 mg Q7D CM Administration Dexamethasone 6 mg 07/31/20 09:00 07/31/20 09:11 Dexamethasone 4 Mg Tab PO 6 mg DAILY CM Administration Dextromethorphan Polistirix 15 mg 07/23/20 20:56 07/26/20 11:44 Dextromethorphan Polistirex 30 Mg/5 Ml (89 Ml Bottle) PO 15 mg BIDPRN PRN Administration Cough Enoxaparin Sodium 40 mg 07/14/20 21:00 07/31/20 09:26 Enoxaparin Sodium 40 Mg/0.4 Ml Syringe SC 40 mg BID CM Administration Guaifenesin 400 mg 07/14/20 21:00 07/23/20 02:15 Guaifenesin 200 Mg Tab PO 400 mg Q4H PRN Administration Cough Hydralazine HCl 10 mg 07/12/20 14:18 07/22/20 20:03 Hydralazine 20 Mg/Ml Vial SLOW IVP 10 mg Q4H PRN Administration SBP>150 Lidocaine HCl 15 ml 07/29/20 11:30 07/31/20 13:33 Lidocaine Viscous Jennifer 2% 15 Ml Ud Cup SSW 15 ml ACHS CM Administration Lorazepam 0.5 mg 07/27/20 11:22 07/29/20 00:53 Lorazepam 2 Mg/Ml Vial SLOW IVP 0.5 mg Q6H PRN Administration Anxiety/Agitation Melatonin 3 mg 07/14/20 01:37 07/30/20 21:32 Melatonin 3 Mg Tab PO 3 mg HSPRN PRN Administration Insomnia Multivitamins 1 tab 07/13/20 09:00 07/31/20 13:26 Multivit, Therapeutic 1 Tab PO 1 tab QAM CM Administration Nystatin 500,000 units 07/29/20 21:00 07/31/20 13:32 Nystatin 500,000 Units/5 Ml Udcup SSW 500,000 units QID CM Administration Pantoprazole Sodium 40 mg 07/15/20 09:00 07/31/20 09:14 Pantoprazole 40 Mg Tab PO 40 mg DAILY CM Administration Promethazine HCl 6.25 mg 07/23/20 20:55 07/25/20 20:24 Promethazine Hcl 6.25 Mg/5 Ml Syrup PO 6.25 mg BIDPRN PRN Administration Cough Senna/Docusate Sodium 2 tab 07/12/20 08:57 07/31/20 09:08 Senokot S 8.6-50 Mg Tab PO 2 tab BID PRN Administration Constipation Sodium Chloride 0 ml 07/30/20 16:13 07/30/20 17:59 Sodium Chloride 0.65% Nasal 44 Ml Bot EA NARE 2 spray Q1H PRN Administration Nasal Dryness Zinc Sulfate 220 mg 07/13/20 09:00 07/31/20 09:12 Zinc Sulfate 220 Mg Cap PO 220 mg DAILY CM Administration - Exam General Appearance: awake alert ENT: normocephalic atraumatic, no oropharyngeal lesions Neck: supple, symmetric, no JVD Heart: RRR, no murmur Respiratory: CTAB, no wheezes, no rales, no ronchi, normal chest expansion Gastrointestinal: soft, non-tender, non-distended, normal bowel sounds Neurological: cranial nerve grossly intact, normal sensation to touch Musculoskeletal: normal tone, normal strength Psychiatric: normal affect, normal behavior, A&O x 3 Hosp A/P (1) Acute respiratory failure with hypoxia Code(s): J96.01 - ACUTE RESPIRATORY FAILURE WITH HYPOXIA Status: Acute (2) Pneumonia due to COVID-19 virus Code(s): U07.1 - COVID-19; J12.82 - PNEUMONIA DUE TO CORONAVIRUS DISEASE 2019 Status: Acute (3) HLD (hyperlipidemia) Code(s): E78.5 - HYPERLIPIDEMIA, UNSPECIFIED Status: Chronic Qualifiers: Hyperlipidemia type: unspecified Qualified Code(s): E78.5 - Hyperlipidemia, unspecified (4) HTN (hypertension) Code(s): I10 - ESSENTIAL (PRIMARY) HYPERTENSION Status: Chronic Qualifiers: Hypertension type: essential hypertension Qualified Code(s): I10 - Essential (primary) hypertension - Plan old records reviewed/req, plan discussed w/ family, PT/OT, respiratory therapy, incentive spirometry 07/29/2020. He remains on a high flow nasal cannula today. His repeat chest x-ray with no significant improvement. His prognosis is guarded. 07/30/2020. The patient remains on a high flow nasal cannula. He says that he feels a little bit better today. We will continue this for now and hopefully wean down as tolerated. 07/31/2020. The patient seems to be about the same. He remains on a high flow nasal cannula. We will continue high flow nasal cannula. Goal is to wean him down safely now soon. We will give him a trial of chest physiotherapy.
[2020-07-31] MEDS ORDERED: Milk Of Magnesia 30 ML UDCUP PO PRN (16:29)
[2020-07-31] MEDS: hydrALAZINE 25 MG TAB PO SCH (20:32)
[2020-07-31] MEDS: Aspirin 81 mg Enteric Coated Tablet PO SCH (20:34)
[2020-07-31] MEDS: Atorvastatin Calcium 40 MG TAB PO SCH (20:34)
[2020-07-31] MEDS: Melatonin 3 MG TAB PO PRN (20:34)
[2020-08-01] MEDS: hydrALAZINE 20 MG/ML VIAL SLOW IVP PRN ×2 (00:51→18:24)
[2020-08-01] MEDS: PROVENTIL INHALER 6.7 G (200 INHALATIONS) INH SCH ×6 (02:13→21:38)
[2020-08-01] MEDS: Lidocaine Viscous Sol 2% 15 ml UD Cup SSW SCH ×4 (09:29→20:38)
[2020-08-01] MEDS: Zinc Sulfate 220 MG CAP PO SCH (09:32)
[2020-08-01] MEDS: Cholecalciferol 1,000 UNITS (25 MCG) TAB PO SCH (09:34)
[2020-08-01] MEDS: Ascorbic Acid 500 mg Chewable Tablet PO SCH (09:35)
[2020-08-01] MEDS: hydrALAZINE 25 MG TAB PO SCH ×3 (09:35→20:37)
[2020-08-01] MEDS: Dexamethasone 4 MG TAB PO SCH (09:35)
[2020-08-01] MEDS: Nystatin 500,000 UNITS/5 ML UDCUP SSW SCH ×4 (09:44→20:38)
[2020-08-01 10:26] LABS: #Basophils 0.1 thou/uL (0.0-0.2); #Eosinphils 0.1 thou/uL (0.0-0.7); #Lymphocytes 0.4 thou/uL (1.20-3.40); #Monocytes 0.8 thou/uL (0.11-0.59); #Neutrophils 16.4 thou/uL (1.40-6.50); %Basophils 0.8 % (0.0-1.0); %Eosinophils 0.6 % (0.0-10.0); %Lymphocytes 2.1 % (21.0-51.0); %Monocytes 4.7 % (0.0-10.0); %Neutrophils 91.9 % (42.0-75.0); Hemoglobin 15.1 g/dL (14.0-18.0); Mean Corpuscular HGB CONC 33.4 g/dL (32.0-36.0); Mean Corpuscular Hemoglobin 29.9 pg (27.0-31.0); Mean Corpuscular Volume 89.4 fL (78.0-98.0); Mean Platelet Volume 8.9 fL (7.4-10.4); Platelet Count 310 thou/uL (130-400); RBC Distribution Width 11.7 % (11.5-14.5); Red Blood Cell (RBC) Count 5.05 mill/uL (4.70-6.10); White Blood Cell (WBC) Count 17.8 thou/uL (4.8-10.8)
[2020-08-01] MEDS ORDERED: Mineral Oil ENEMA PR SCH (11:00)
[2020-08-01] MEDS: Enoxaparin Sodium 40 MG/0.4 ML SYRINGE SC SCH ×2 (12:35→20:37)
[2020-08-01] MEDS: Multivit, Therapeutic 1 TAB PO SCH (12:39)
--- NOTE | 2020-08-01 18:10 | PDOC.HOSPP ---
- Subjective Encounter Date: 08/01/20 Encounter Time: 18:08 Subjective: Patient reports that he is feeling a little bit better today. He has been on FiO2 of 65% and is saturating 100%. Clinically he looks comfortable. We will begin the process of weaning him down. - Objective Vital Signs & Weight: Vital Signs (12 hours) Temp Pulse Resp BP Pulse Ox 08/01/20 17:29 104 H 18 165/85 H 93 L 08/01/20 15:32 97.4 F L 104 H 18 175/80 H 96 08/01/20 13:57 109 H 24 H 96 08/01/20 13:46 104 H 22 H 163/72 H 100 08/01/20 11:16 96.4 F L 92 24 H 155/83 H 96 08/01/20 10:31 105 H 24 H 98 08/01/20 09:24 98.9 F 106 H 22 H 148/82 H 96 08/01/20 07:44 96 08/01/20 06:48 112 H 24 H 96 08/01/20 06:43 113 H 24 H 96 Weight Admit Weight 182 lb 4 oz Weight 162 lb 4.8 oz I&O: 07/31/20 08/01/20 08/02/20 06:59 06:59 06:59 Intake Total 1380 880 Output Total 550 Balance 830 880 Result Diagrams: 08/01/20 10:00 07/29/20 05:01 Radiology Reviewed by me: Yes EKG Reviewed by me: Yes Hospitalist ROS - Review of Systems Constitutional: reports: weakness Respiratory: reports: SOB with excertion Cardiovascular: reports: chest pain Neurological: reports: weakness - Medication Medications: Active Medications Generic Name Dose Route Start Last Admin Trade Name Freq PRN Reason Stop Dose Admin Acetaminophen 650 mg 07/12/20 08:57 07/27/20 12:40 Acetaminophen 325 Mg Tab PO 650 mg Q4H PRN Administration Headache/Fever/Mild Pain (1-3) Albuterol Sulfate 2 puff 07/23/20 22:30 08/01/20 13:57 Proventil Inhaler 6.7 G (200 Inhalations) INH 2 puff [id number] CM Administration Ascorbic Acid 1,000 mg 07/13/20 09:00 08/01/20 09:35 Ascorbic Acid 500 Mg Chewable Tablet PO 1,000 mg DAILY CM Administration Aspirin 81 mg 07/12/20 21:00 07/31/20 20:34 Aspirin 81 Mg Enteric Coated Tablet PO 81 mg HS CM Administration Atorvastatin Calcium 40 mg 07/12/20 21:00 07/31/20 20:34 Atorvastatin Calcium 40 Mg Tab PO 40 mg QPM CM Administration Cholecalciferol 2,000 units 07/13/20 09:00 08/01/20 09:34 Cholecalciferol 1,000 Units (25 Mcg) Tab PO 2,000 units DAILY CM Administration Clonidine 0.1 mg 07/13/20 03:00 07/27/20 03:14 Clonidine 0.1mg/24 Hour Patch TD 0.1 mg Q7D CM Administration Dexamethasone 6 mg 07/31/20 09:00 08/01/20 09:35 Dexamethasone 4 Mg Tab PO 6 mg DAILY CM Administration Dextromethorphan Polistirix 15 mg 07/23/20 20:56 07/26/20 11:44 Dextromethorphan Polistirex 30 Mg/5 Ml (89 Ml Bottle) PO 15 mg BIDPRN PRN Administration Cough Enoxaparin Sodium 40 mg 07/14/20 21:00 08/01/20 12:35 Enoxaparin Sodium 40 Mg/0.4 Ml Syringe SC 40 mg BID CM Administration Guaifenesin 400 mg 07/14/20 21:00 07/23/20 02:15 Guaifenesin 200 Mg Tab PO 400 mg Q4H PRN Administration Cough Hydralazine HCl 10 mg 07/12/20 14:18 08/01/20 00:51 Hydralazine 20 Mg/Ml Vial SLOW IVP 10 mg Q4H PRN Administration SBP>150 Hydralazine HCl 25 mg 07/31/20 21:00 08/01/20 15:38 Hydralazine 25 Mg Tab PO 25 mg TID CM Administration Lidocaine HCl 15 ml 07/29/20 11:30 08/01/20 17:28 Lidocaine Viscous Jennifer 2% 15 Ml Ud Cup SSW 15 ml ACHS CM Administration Lorazepam 0.5 mg 07/27/20 11:22 07/29/20 00:53 Lorazepam 2 Mg/Ml Vial SLOW IVP 0.5 mg Q6H PRN Administration Anxiety/Agitation Magnesium Hydroxide 30 ml 07/31/20 16:29 07/31/20 22:14 Milk Of Magnesia 30 Ml Udcup PO 30 ml DAILYPRN PRN Administration Constipation Melatonin 3 mg 07/14/20 01:37 07/31/20 20:34 Melatonin 3 Mg Tab PO 3 mg HSPRN PRN Administration Insomnia Multivitamins 1 tab 07/13/20 09:00 08/01/20 12:39 Multivit, Therapeutic 1 Tab PO Not Given QAM CM Nystatin 500,000 units 07/29/20 21:00 08/01/20 17:27 Nystatin 500,000 Units/5 Ml Udcup SSW 500,000 units QID CM Administration Pantoprazole Sodium 40 mg 07/15/20 09:00 08/01/20 09:34 Pantoprazole 40 Mg Tab PO 40 mg DAILY CM Administration Promethazine HCl 6.25 mg 07/23/20 20:55 07/25/20 20:24 Promethazine Hcl 6.25 Mg/5 Ml Syrup PO 6.25 mg BIDPRN PRN Administration Cough Senna/Docusate Sodium 2 tab 07/12/20 08:57 07/31/20 09:08 Senokot S 8.6-50 Mg Tab PO 2 tab BID PRN Administration Constipation Sodium Chloride 0 ml 07/30/20 16:13 07/30/20 17:59 Sodium Chloride 0.65% Nasal 44 Ml Bot EA NARE 2 spray Q1H PRN Administration Nasal Dryness Zinc Sulfate 220 mg 07/13/20 09:00 08/01/20 09:32 Zinc Sulfate 220 Mg Cap PO 220 mg DAILY CM Administration - Exam General Appearance: awake alert, ill appearing Eye: PERRL, anicteric sclera ENT: normocephalic atraumatic, no oropharyngeal lesions Neck: supple, symmetric, no JVD, no thyromegaly, no lymphadenopathy Heart: RRR, no murmur, no gallops, no rubs, normal peripheral pulses Respiratory: CTAB, no wheezes, no rales, no ronchi, normal chest expansion Gastrointestinal: soft, non-tender, non-distended, normal bowel sounds Neurological: cranial nerve grossly intact, normal sensation to touch Psychiatric: normal affect, normal behavior, A&O x 3 Hosp A/P (1) Acute respiratory failure with hypoxia Code(s): J96.01 - ACUTE RESPIRATORY FAILURE WITH HYPOXIA Status: Acute (2) Pneumonia due to COVID-19 virus Code(s): U07.1 - COVID-19; J12.82 - PNEUMONIA DUE TO CORONAVIRUS DISEASE 2019 Status: Acute (3) HLD (hyperlipidemia) Code(s): E78.5 - HYPERLIPIDEMIA, UNSPECIFIED Status: Chronic Qualifiers: Hyperlipidemia type: unspecified Qualified Code(s): E78.5 - Hyperlipidemia, unspecified (4) HTN (hypertension) Code(s): I10 - ESSENTIAL (PRIMARY) HYPERTENSION Status: Chronic Qualifiers: Hypertension type: essential hypertension Qualified Code(s): I10 - Essential (primary) hypertension - Plan 07/29/2020. He remains on a high flow nasal cannula today. His repeat chest x-ray with no significant improvement. His prognosis is guarded. 07/30/2020. The patient remains on a high flow nasal cannula. He says that he feels a little bit better today. We will continue this for now and hopefully wean down as tolerated. 07/31/2020. The patient seems to be about the same. He remains on a high flow nasal cannula. We will continue high flow nasal cannula. Goal is to wean him down safely now soon. We will give him a trial of chest physiotherapy. 08/01/2020. We are beginning to titrate him on the high flow nasal cannula. Hopefully he tolerates this.
[2020-08-01] MEDS: Atorvastatin Calcium 40 MG TAB PO SCH (20:37)
[2020-08-01] MEDS: Aspirin 81 mg Enteric Coated Tablet PO SCH (20:37)
[2020-08-01] MEDS ORDERED: cloNIDine 0.1 MG TAB PO PRN (21:50)
[2020-08-01] MEDS ORDERED: Labetalol HCl 100 MG/20 ML VIAL SLOW IVP SCH (22:45)
--- NOTE | 2020-08-01 23:14 | PDOC.EVN ---
Event Note - Event Note Event Note: Nursing called, patient AMS, less responsive since beginning of shift. Afebrile, HTN SBP 190s, tachycardic 130s, tachypneic 40s, hypoxic 60s-70s on High Flow NC 50:51. Ordered labs, EKG, CXR, ABG. POC glucose 196. A: Lethargic, responds to voice, follows commands, mouth breathing 40s, sp02 90% High flow NC 50L:50%, afebrile and HTN. S1S2, Diminished throughout Review labs, meds, not on any abx, WBC trending up, patient on steroids.
[2020-08-01 23:23] LABS: Actual Bicarbonate (HCO3a) 31.8 mEq/L (22-28); Base Excess (BEa) 1.4 mEq/L (-2.0 to +3.0); Calcium, Ionized (arterial) 1.26 mmol/L (1.12-1.30); Carboxyhemoglobin (COHb) 1.1 gm% (0.0-3.0); Hemoglobin (Hb) 16.3 g/dL (14.0-18.0); O2 Tension (PaO2), arterial 70.7 mmHg (> 70.0); Potassium - ABG Lab 4.55 mmol/L (3.70-5.30)
[2020-08-01 23:25] LABS: CO2 Tension 77.1 mmHg (35.0-45.0); Puncture Site RRA; pH, Arterial 7.23 (7.35-7.45)
[2020-08-01 23:26] LABS: ALV-art Gradient 189.425 mmHg (0-20)
[2020-08-01 23:42] LABS: Hemoglobin 15.6 g/dL (14.0-18.0); Mean Corpuscular HGB CONC 33.8 g/dL (32.0-36.0); Mean Corpuscular Hemoglobin 30.4 pg (27.0-31.0); Mean Platelet Volume 8.8 fL (7.4-10.4); Platelet Count 329 thou/uL (130-400); RBC Distribution Width 11.7 % (11.5-14.5); Red Blood Cell (RBC) Count 5.15 mill/uL (4.70-6.10); White Blood Cell (WBC) Count 19.8 thou/uL (4.8-10.8)
--- NOTE | 2020-08-01 23:42 | RAD ---
CHEST 1 VIEW: Date: 08/01/2020 COMPARISON: 07/29/2020. HISTORY: COVID pneumonia. FINDINGS: Extensive bilateral lung infiltrates are stable as compared to the prior exam. No new process is iden tified. IMPRESSION: Stable exam. POS: OFF
[2020-08-01 23:57] LABS: Band 5 % (5-11); Lymphocytes 2 % (21-51); MDiff Complete? YES; Monocytes 6 % (0-10); Neutrophil 87 % (42-75)
[2020-08-01 23:58] LABS: Lactic Acid 1.4 mmol/L (0.5-2.2)
[2020-08-02 00:02] LABS: Anion Gap 15 mmol/L (10-20); BUN (Urea Nitrogen) 55 mg/dL (8.4-25.7); Calc. Creatinine Clearance 44 mL/min (70-130); Calcium 9.4 mg/dL (7.8-10.44); Carbon Dioxide 30 mmol/L (23-31); Chloride 97 mmol/L (98-107); Glucose 207 mg/dL (83-110); Magnesium 2.5 mg/dL (1.6-2.6); Potassium 4.9 mmol/L (3.5-5.1); Sodium 137 mmol/L (136-145)
--- NOTE | 2020-08-02 00:39 | PDOC.BPN ---
- Brief Progress Note Encounter Date: 08/02/20 Patient is oxygen saturation was going down on high flow with ABG showing severe CO2 retention and acidosis. Trial of BiPAP was unsuccessful last patient was not able to take adequate breaths was making him generally worse. He was directed back onto high flow nasal cannula however his respiratory status Deteriorated. He is DNR. I took my time to explain to his and son who generally understood the prognosis.
[2020-08-02 01:37] VITALS: TEMP 99.3
[2020-08-02] MEDS: PROVENTIL INHALER 6.7 G (200 INHALATIONS) INH SCH ×2 (04:15→06:33)
[2020-08-02] MEDS ORDERED: Labetalol HCl 100 MG/20 ML VIAL SLOW IVP SCH (06:45)
[2020-08-02 06:51] VITALS: BP 157/72
[2020-08-02] MEDS ORDERED: Sodium Chloride 0.9% 1,000 ML IV SCH (08:45)
[2020-08-02] MEDS ORDERED: Vancomycin HCl 1.25 GM in Sodium Chloride 0.9% 250 ML 250 ML IVPB SCH (09:00)
[2020-08-02] MEDS ORDERED: MEROPENEM 1 GM/50 ML 1 GM in Premix Bag 1 BAG IVPB SCH (09:00)
[2020-08-02] MEDS ORDERED: Meropenem 1 GM in Sodium Chloride 0.9% 100 ML IVPB SCH (09:00)
[2020-08-02] MEDS ORDERED: Vancomycin 1 GM in Premix Bag 1 BAG IVPB SCH (09:00)
[2020-08-02] MEDS ORDERED: Benzonatate 100 MG CAP PO SCH (09:00)
--- NOTE | 2020-08-02 09:13 | PDOC.DS.DS ---
Provider - Provider Date of Admission: 07/12/20 06:03 Date of Discharge: 08/02/20 Admitting Provider: Jose Carlos Marks Consultations: Pulmonary Primary Care Physician: Dora Reveles MD Course - Hospital Course Hospital Course: Mr. Daljit Mendoza is an unfortunate 75-year-old who was normally in good health but unfortunately developed COVID-19 virus pneumonia prompting hospitalizations. He has some waxing and waning symptomatologies. Initially he did well but unfortunately deteriorated. He was maintained on a high flow nasal cannula. He received IV antibiotics. Unfortunately despite heroic measures the patient never really improved. He deteriorated last night and has become unresponsive this morning. Palliative care has visited back with him and the family has decided to discharge him into hospice. The patient is going to be discharged today. Resuscitation Status: 07/27/20 01:27 Resuscitation Status Routine Co-Sign Provider: Resuscitation Status: DNAR: NO Resuscitation Discussed with: patient - Labs Lab Results: 08/01/20 23:27 08/01/20 23:27 Abnormal Lab Results - Last 48 hrs 08/01/20 10:00: WBC 17.8 H, Neutrophils % 91.9 H, Lymphocytes % 2.1 L, N eutrophils # 16.4 H, Lymphocytes # 0.4 L, Monocytes # 0.8 H 08/01/20 23:04: Bicarbonate Actual 31.8 H, ABG pH 7.23 L*, ABG pCO2 77.1 H*, ABG pO2 70.7 H, ABG O2 Sat (Measured) 92.3 L, ABG Oxyhemoglobin 91.1 L, ABG Deoxyhemoglobin 7.6 H, A-a O2 Gradient 189.425 H, Chloride 97 L 08/01/20 23:27: Chloride 97 L, BUN 55 H, Creatinine 1.48 H 08/01/20 23:27: WBC 19.8 H, Neutrophils % (Manual) 87 H, Lymphocytes % (Manual) 2 L Microbiology - Entire Visit 07/20/20 07:24 Venous blood - Left Arm Blood Culture - Final NO GROWTH IN 5 DAYS 07/20/20 07:24 Venous blood - Right Arm Blood Culture - Final NO GROWTH IN 5 DAYS 07/12/20 04:40 Venous blood - Left Arm Blood Culture - Final NO GROWTH IN 5 DAYS 12/31/20 03:20 Venous blood - Right Hand Blood Culture - Final NO GROWTH IN 5 DAYS - Physical Exam Vitals: Vital Signs (12 hours) Temp Pulse Resp BP Pulse Ox 08/02/20 06:08 110 H 30 H 157/72 H 96 08/02/20 04:05 106 H 28 H 139/75 94 L 08/02/20 01:51 103 H 30 H 131/59 L 98 08/02/20 00:16 99.3 F 92 24 H 141/64 H 99 08/01/20 22:20 115 H 28 H 190/86 H 92 L Weight Admit Weight 182 lb 4 oz Weight 162 lb 4.8 oz Physical Exam: The patient was seen and examined on the day of discharge. Problem - Problem (1) Acute respiratory failure with hypoxia Code(s): J96.01 - ACUTE RESPIRATORY FAILURE WITH HYPOXIA Status: Acute (2) Pneumonia due to COVID-19 virus Code(s): U07.1 - COVID-19; J12.82 - PNEUMONIA DUE TO CORONAVIRUS DISEASE 2019 Status: Acute (3) HLD (hyperlipidemia) Code(s): E78.5 - HYPERLIPIDEMIA, UNSPECIFIED Status: Chronic Qualifiers: Hyperlipidemia type: unspecified Qualified Code(s): E78.5 - Hyperlipidemia, unspecified (4) HTN (hypertension) Code(s): I10 - ESSENTIAL (PRIMARY) HYPERTENSION Status: Chronic Qualifiers: Hypertension type: essential hypertension Qualified Code(s): I10 - Essential (primary) hypertension - Time spent with Patient (mins): 30 Plan - Discharge Medications Home Medications: Medication Instructions Recorded Confirmed Type cloNIDine [Ellrpcdf-DQN-5 Patch] 1 applic .ROUTE Q7D 09/14/19 07/12/20 History predniSONE 20 mg PO QAM-WM 07/13/20 07/13/20 History Allergies: No Known Allergies Allergy (Verified 11/18/19 11:34) - Discharge Instructions Activity:: Activity as Tolerated Nourishment:: No Restrictions - Follow up Plan Referrals: Dora Reveles MD [Primary Care Provider] - Disposition: HOSPICE-HOME Quality - Care Measures CORE MEASURES:: N/A
[2020-08-02] MEDS: Lidocaine Viscous Sol 2% 15 ml UD Cup SSW SCH ×2 (09:14→11:19)
[2020-08-02] MEDS: Ascorbic Acid 500 mg Chewable Tablet PO SCH (09:14)
[2020-08-02] MEDS: Dexamethasone 4 MG TAB PO SCH (09:15)
[2020-08-02] MEDS: Nystatin 500,000 UNITS/5 ML UDCUP SSW SCH ×2 (09:15→11:19)
[2020-08-02] MEDS: Zinc Sulfate 220 MG CAP PO SCH (09:15)
[2020-08-02] MEDS: Enoxaparin Sodium 40 MG/0.4 ML SYRINGE SC SCH (09:15)
[2020-08-02] MEDS: Cholecalciferol 1,000 UNITS (25 MCG) TAB PO SCH (09:15)
[2020-08-02] MEDS: hydrALAZINE 25 MG TAB PO SCH (09:15)
[2020-08-02] MEDS: Multivit, Therapeutic 1 TAB PO SCH (09:15)
--- NOTE | 2020-08-02 09:47 | PDOC.FMACP ---
Advance Care Planning - Problem (1) Palliative care encounter Status: Acute Code(s): Z51.5 - ENCOUNTER FOR PALLIATIVE CARE (2) Acute respiratory failure with hypoxia Status: Acute Code(s): J96.01 - ACUTE RESPIRATORY FAILURE WITH HYPOXIA (3) Pneumonia due to COVID-19 virus Status: Acute Code(s): U07.1 - COVID-19; J12.82 - PNEUMONIA DUE TO CORONAVIRUS DISEASE 2018 (4) CKD (chronic kidney disease), stage III Status: Chronic Code(s): N18.3 - CHRONIC KIDNEY DISEASE, STAGE 3 (MODERATE) * DO NOT USE * (5) HTN (hypertension) Status: Chronic Code(s): I10 - ESSENTIAL (PRIMARY) HYPERTENSION Qualifiers: Hypertension type: essential hypertension Qualified Code(s): I10 - Essential (primary) hypertension - Note Participants: family, surrogate decision-maker, palliative care Summary: Palliative care revisited Advanced Care Planning with patient family. The diagnosis, prognosis and goals of care were discussed. Appropriate forms and documentation to accomplish the goals of care were discussed. All questions were answered. Decline occurred related to complications of Covid. Patient had previously confirmed DNAR status. Goal: Transition to home setting as soon as possible with Hospice to provide comfort in home setting Requested [facility] / Anne Shepherd RNfield aide confirmed verbal obtained Communicated with Dr Jim CONN completed see notes in note section. Emotional support and therapeutic listening offered. Time Spent (mins): 45
[2020-08-02] MEDS ORDERED: Acetylcysteine 20% 200 MG/ML 30 ML VIAL INH SCH (13:00)
--- NOTE | 2020-08-06 10:49 | EKG ---
Test Reason : STAT Blood Pressure : / mmHG Vent. Rate : 130 BPM Atrial Rate : 130 BPM P-R Int : 114 ms QRS Dur : 080 ms QT Int : 258 ms P-R-T Axes : 035 027 108 degrees QTc Int : 379 ms Sinus tachycardia Biatrial enlargement Nonspecific ST abnormalty Abnormal ECG Confirmed by STONEY SALAZAR ([id number]) on 08/06/2020 10:49:07 AM Referred By: SUNDAY Confirmed By:STONEY SALAZAR
== END 2020-08-02 13:20 | disposition hospice, home (50) | DRG 177 ==
LOC: ERS 04:03 → ERHOLD 06:03 → 2SW 22:20 → T4-B 07-23 14:34 → 2SE 07-27 04:12
PROVIDERS: ADMIT Internal Medicine; ATTEND Hospitalist
PROC: 8E0ZXY6 Isolation (ICD-10-PCS; principal; 2020-07-12)
PROC: 5A09457 Assistance with Respiratory Ventilation, 24-96 Consecutive Hours, Continuous Positive Airway Pressure (ICD-10-PCS; 2020-07-27)
DX: U07.1 COVID-19 (principal); J12.82 Pneumonia due to coronavirus disease 2019; J96.01 Acute respiratory failure with hypoxia; N17.9 Acute kidney failure, unspecified; E87.2 Acidosis; Z51.5 Encounter for palliative care; Z66 Do not resuscitate; E86.0 Dehydration; N18.30 Chronic kidney disease, stage 3 unspecified; K21.9 Gastro-esophageal reflux disease without esophagitis; I12.9 Hypertensive chronic kidney disease with stage 1 through stage 4 chronic kidney disease, or unspecified chronic kidney disease; E78.5 Hyperlipidemia, unspecified; Z79.82 Long term (current) use of aspirin; Z79.899 Other long term (current) drug therapy
CPT/HCPCS: 36415; 36416; 36600; 71045; 71275; 80048; 80053; 81001; 82728; 82805; 83605; 83735; 83880; 84145; 85025; 85379; 86140; 87040; 93005; 93010; 93970; 94660; 94664; 94668; 96372; J0360; J0692; J0696; J1100; J1650; J1940; J2060; J3490; J8540; Q0169; Q9967